=== PATIENT | female | born 1970 | race Caucasian/White ===

== ENCOUNTER 2016-08-10 16:49 | Emergency (ER) | payer BC, MEDICAID ==
[~2016-08-10 16:49] MED LIST: ALBUTEROL INHALER INH; DEXILANT PO; IBUP600T26 PO; VICOBULK PO; ZEBETA PO
[2016-08-10 18:30] LABS: BASO % 0.5 % (0.0-1.0); EOS # 0.3 K/mm3 (0.0-0.50); EOS % 4.3 % (0.0-3.0); LARGE UNSTAINED CELL # 0.1 K/mm3 (0.0-0.4); LARGE UNSTAINED CELL % 1.6 % (0.0-4.0); LYMPH # 1.6 K/mm3 (1.5-4.5); MEAN CORPUSCULAR HEMOGLOBIN 30.2 pg (27.0-33.0); MEAN CORPUSCULAR HGB CONC 33.7 g/dl (32.0-36.5); MEAN CORPUSCULAR VOLUME 89.6 fl (80.0-96.0); MONO # 0.3 K/mm3 (0.0-0.8); MONO % 3.9 % (0.0-5.0); NEUTROPHILS # 4.3 K/mm3 (1.8-7.7); NEUTROPHILS % 65.6 % (36.0-66.0); PLATELET COUNT, AUTOMATED 282 k/mm3 (150-450); RED CELL DISTRIBUTION WIDTH 13.1 % (11.5-14.5); WHITE BLOOD COUNT 6.6 K/mm3 (4.0-10.0)
[2016-08-10 19:02] LABS: ANION GAP 8 MEQ/L (8-16); BLOOD UREA NITROGEN 11 MG/DL (7-18); CALCIUM LEVEL 9.1 MG/DL (8.5-10.1); CARBON DIOXIDE LEVEL 28 MEQ/L (21-32); CHLORIDE LEVEL 104 MEQ/L (98-107); CREATININE FOR GFR 1.01 MG/DL (0.55-1.02); GLOMERULAR FILTRATION RATE > 60.0 (>58); GLUCOSE, FASTING 112 MG/DL (70-105); SODIUM LEVEL 140 MEQ/L (136-145); T UPTAKE 36 % (30-39)
[2016-08-10] MEDS ORDERED: ISOVUE-370 76% 100ML VIAL (Q9967) As Ordered ONE (19:14)
--- NOTE | 2016-08-10 20:00 | REPUSA ---
History: Chest pain. Comparison: No prior CTA of the chest available Technique: A CT-pulmonary angiogram was performed. A dose of intravenous contrast was administered. A xial images were displayed, as were sagittal and coronal reconstructions. A 3-D model was also render ed. Exam DLP: Findings: Although there is suboptimal IV bolus, there is no CT evidence of central pulmonary embolism. There is no evidence of thoracic aortic aneurysm or dissection. No air space consolidation is identified in the lungs. There is no evidence of pulmonary edema. No pa thologically enlarged hilar or mediastinal lymph nodes are identified. No significant pleural or elva cardial fluid collection is seen. There is no evidence of pneumothorax. The included portion of the upper abdomen does not show significant abnormality. Impression: Although there is suboptimal IV bolus, there is no CT evidence of central pulmonary embolism.
--- NOTE | 2016-08-10 21:14 | EDDOCDS ---
Nurse's Notes [facility] Name: Ana Lakhani Age: 45 yrs Sex: Female : 1970 Arrival Date: 08/10/2016 Time: 16:49 Bed 7 Private MD: Jeremy So FPA Diagnosis: Other chest pain-low risk acute coronary syndrome or pulmonary embolism Presentation: 08/10 16:53 Presenting complaint: Patient states: Intermittent chest pain, dizziness, all day. dwg Aspirin was not taken prior to arrival. Adult Sepsis Screening: The patient does not have new or worsening altered mentation. Patient's respiratory rate is less than 22. Systolic blood pressure is greater than 100. Patient has a qSOFA score of 0- Negative Sepsis Screen. Suicide/Homicide risk assessment- the patient denies having any suicidal and/or homicidal ideations and does not present with any other emotional, behavioral or mental health complaints. Status: Patient is not a pump installation and servicer or dependent. Transition of care: patient was not received from another setting of care. 16:53 Acuity: JUAN Level 3 dwg 16:53 Method Of Arrival: Walkin/Carried/Asstd dwg Triage Assessment: 16:56 General: Appears in no apparent distress. Pain: Pain currently is 5 out of 10 on a pain dwg scale. 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 Zebeta 5 mg oral tab 1 tab once daily (Last dose: 08/10/2016 08:00) 2. Ranitidine Oral Unknown prn 3. Motrin 600mg Oral tab as needed 4. Xanax Oral Unknown as needed (Last dose: 08/09/2016 21:00) - PMHx: GERD; Hypertension; Intermittent tachycardia; PAC's; PVC's; - PSHx: Hysterectomy; - Social history: Smoking status: Patient states former smoker of tobacco. No barriers to communication noted, The patient speaks fluent Telugu. - Family history: Not pertinent. - : The pt / caregiver states he / she is not on anticoagulants. Home medication list is obtained from the patient. - Exposure Risk Screening:: None identified. Screenin:21 Screening information is obtained from the patient. Fall risk: No risks identified. jo3 Assistance ADL's: requires no assistance with activities of daily living. Abuse/DV Screen: The patient / caregiver reports he/she is: not in a situation that causes fear, pain or injury. Nutritional screening: No deficits noted. Advance Directives: There is no active DNR order. home support is adequate. Assessment: 18:21 General: Appears in no apparent distress, comfortable, Behavior is anxious, jo3 cooperative, pleasant. Neurological: Level of Consciousness is awake, alert, Oriented to person, place, time. EENT: No deficits noted. Cardiovascular: Rhythm is sinus rhythm with unifocal PVCs. Respiratory: Airway is patent Respiratory effort is even, unlabored, Breath sounds are clear bilaterally. Derm: Skin is pink, warm & dry. 19:22 General: Patient to CT at this time. nn1 20:19 General: Patient in no distress at this time. Patient awaiting CT results, fluids nn1 infusing per order. . General: Patient reports having 3 BMs today. States pressure in abdomen is relieved. . Neurological: Level of Consciousness is awake, alert, obeys commands. Respiratory: Airway is patent Respiratory effort is even, unlabored. Derm: Skin is pink, warm & dry. 21:11 General: Appears in no apparent distress, comfortable, Behavior is appropriate for age, nn1 cooperative. Pain: Denies pain. Neurological: Level of Consciousness is awake, alert, obeys commands. Respiratory: No deficits noted. Derm: Skin is pink, warm & dry. Vital Signs: 16:50 BP 149 / 77; Pulse 100; Resp 20; Temp 96.4(O); Pulse Ox 100% on R/A; Weight 76.66 kg elp (R); Height 5 ft. 2 in. (157.48 cm) (R); Pain 0/10; 19:44 BP 109 / 66 RA Supine (auto/); Pulse 72; jo3 19:46 BP 116 / 84 LA Sitting (auto/); Pulse 74; jo3 19:48 BP 117 / 77 LA Standing (auto/); Pulse 78; jo3 21:06 BP 115 / 76; Pulse 71; Resp 18; Temp 97.8(TE); Pulse Ox 98% on R/A; venkatesh 16:50 Body Mass Index 30.91 (76.66 kg, 157.48 cm) elp 19:48 Denies dizziness on position changes jo3 Vitals: 16:50 Log In Time: August 10, 2016 at 16:48. RN notified that patient meets Red Flag elp criteria. ED Course: 16:50 Patient visited by Zoe Payne PCA. elp 16:50 Jeremy So is Private Physician. elp 16:50 Patient moved to Waiting elp 16:51 Patient visited by Zoe Payne PCA. elp 16:54 Triage Initiated dwg 16:54 RN notified that patient meets Red Flag criteria. dem1 16:57 Patient moved to 7 dwg 17:00 Patient moved to D1 dwg 17:02 Patient moved to Pre RCE ml6 17:02 Patient moved to PD2 / 27 dwg 17:10 Patient visited by Felicia Arias. dem1 17:10 Patient moved to 7 dwg 17:10 EKG done. (by ED staff). Reviewed by Sherie Payne MD. dem1 17:20 Pt greeted and oriented to ED. Patient advised of names of staff involved in care, [facility] location of call alvares, wait times and NPO status. Patient has correct armband on for positive identification. Placed in gown. Bed in low position. Call light in reach. Side rails up X 1. monitoring manager on. Pulse ox on. NIBP on. 17:21 Patient visited by Felicia Arias. dem1 18:14 [facility] Chung F[facility] le 18:21 The patient / caregiver is instructed regarding the plan of care and ED course. jo3 18:21 Inserted saline lock: 18 gauge in left antecubital area. Labs drawn. (by ED staff). jo3 Sent per order to lab. 18:23 Patient visited by Nila Geiger RN. jo3 18:29 Patient visited by Sylvia Chung FNP. le 18:34 Patient visited by Sylvia Chung FNP. le 19:22 Patient visited by Hardik Gillis RN. nn1 19:22 [facility] Payment Agreement was scanned into [employer] and attached to record. [email or web address] 19:29 Patient name changed from Ana\S\Dorothea\S\Patric\S\ to Ana\S\ \S\Lesvia. EDMS 20:09 CT Chest Angio R/O PE Returned. EDMS 20:19 Patient visited by Hardik Gillis RN. nn1 21:03 Jeremy So is Referral Physician. le 21:06 Patient visited by Latrice Byrne PCA. venkatesh 21:12 No procedures done that require assistance. nn1 Administered Medications: 20:19 Drug: NS 0.9% 1000 ml [sodium chloride 0.9 % intravenous solution] Route: IV; Rate: nn1 bolus; Site: left antecubital; 21:12 Follow up: IV Status: Infusion discontinued; IV Intake: 800ml nn1 Intake: 21:12 IV: 800.00ml; Total: 800.00ml. nn1 Order Results: Lab Order: Basic Metabolic Profile; SPEC'M 08/10/16 18:19 Test: GLUCOSE, FASTING; Value: 112; Range: 70-105; Abnormal: Above high normal; Units: MG/DL; Status: F Test: BLOOD UREA NITROGEN; Value: 11; Range: 7-18; Units: MG/DL; Status: F Test: CREATININE FOR GFR; Value: 1.01; Range: 0.55-1.02; Units: MG/DL; Status: F Test: GLOMERULAR FILTRATION RATE; Value: > 60.0; Range: >58; Status: F Test: SODIUM LEVEL; Value: 140; Range: 136-145; Units: MEQ/L; Status: F Test: POTASSIUM SERUM; Value: 4.0; Range: 3.5-5.1; Units: MEQ/L; Status: F Test: CHLORIDE LEVEL; Value: 104; Range: 98-107; Units: MEQ/L; Status: F Test: CARBON DIOXIDE LEVEL; Value: 28; Range: 21-32; Units: MEQ/L; Status: F Test: ANION GAP; Value: 8; Range: 8-16; Units: MEQ/L; Status: F Test: CALCIUM LEVEL; Value: 9.1; Range: 8.5-10.1; Units: MG/DL; Status: F Test Note: ; Units are mL/min/1.73 m2 Chronic Kidney Disease Staging per NKF: Stage I & II GFR >=60 Normal to Mildly Decreased Stage III GFR 30-59 Moderately Decreased Stage IV GFR 15-29 Severely Decreased Stage V GFR <15 Very Little GFR Left ESRD GFR <15 on DETAILER Lab Order: CBC with Diff; SPEC'M 08/10/16 18:19 Test: WHITE BLOOD COUNT; Value: 6.6; Range: 4.0-10.0; Units: K/mm3; Status: F Test: RED BLOOD COUNT; Value: 4.61; Range: 4.00-5.40; Units: M/mm3; Status: F Test: HEMOGLOBIN; Value: 13.9; Range: 12.0-16.0; Units: g/dl; Status: F Test: HEMATOCRIT; Value: 41.3; Range: 36.0-47.0; Units: %; Status: F Test: MEAN CORPUSCULAR VOLUME; Value: 89.6; Range: 80.0-96.0; Units: fl; Status: F Test: MEAN CORPUSCULAR HEMOGLOBIN; Value: 30.2; Range: 27.0-33.0; Units: pg; Status: F Test: MEAN CORPUSCULAR HGB CONC; Value: 33.7; Range: 32.0-36.5; Units: g/dl; Status: F Test: RED CELL DISTRIBUTION WIDTH; Value: 13.1; Range: 11.5-14.5; Units: %; Status: F Test: PLATELET COUNT, AUTOMATED; Value: 282; Range: 150-450; Units: k/mm3; Status: F Test: NEUTROPHILS %; Value: 65.6; Range: 36.0-66.0; Units: %; Status: F Test: LYMPH %; Value: 24.0; Range: 24.0-44.0; Units: %; Status: F Test: MONO %; Value: 3.9; Range: 0.0-5.0; Units: %; Status: F Test: EOS %; Value: 4.3; Range: 0.0-3.0; Abnormal: Above high normal; Units: %; Status: F Test: BASO %; Value: 0.5; Range: 0.0-1.0; Units: %; Status: F Test: LARGE UNSTAINED CELL %; Value: 1.6; Range: 0.0-4.0; Units: %; Status: F Test: NEUTROPHILS #; Value: 4.3; Range: 1.8-7.7; Units: K/mm3; Status: F Test: LYMPH #; Value: 1.6; Range: 1.5-4.5; Units: K/mm3; Status: F Test: MONO #; Value: 0.3; Range: 0.0-0.8; Units: K/mm3; Status: F Test: EOS #; Value: 0.3; Range: 0.0-0.50; Units: K/mm3; Status: F Test: BASO #; Value: 0.0; Range: 0.0-0.2; Units: K/mm3; Status: F Test: LARGE UNSTAINED CELL #; Value: 0.1; Range: 0.0-0.4; Units: K/mm3; Status: F Lab Order: Cardiac Injury Profile; [facility] 08/10/16 18:19 Test: CPK CREATINE PHOSPHOKINASE; Value: 181; Range: 26-192; Units: U/L; Status: F Test: CK-MB VALUE MASS; Value: 1.0; Range: 0.0-3.6; Units: NG/ML; Status: F Test: MB/CK RELATIVE INDEX; Value: 0.55; Range: < OR =4; Status: F Test Note: ; DIAGNOSIS CRITERIA MMB ng/ml Relative Index (RI) NON-AMI < or = 5 N/A [place]ONE > 5 < or = 4 AMI > 5 > 4 Lab Order: Troponin; [facility] 08/10/16 18:19 Test: TROPONIN I; Value: < 0.02; Range: < 0.10; Units: NG/ML; Status: F Test Note: ; Troponin I Reference Interval for [email or web address] LOCI: 99th Percentile= 0.00-0.045 ng/ml Risk Stratification: <= 0.10 ng/ml Decreased Risk for Adverse Clinical Events. 0.10-1.50 ng/ml Increased Risk for Adverse Clinical Events. Evaluation of additional criterion and/or repeat testing in 2-6 hours is suggested to rule out myocardial damage. >= 1.50 ng/ml Indicative of Myocardial Injury. Lab Order: THYROID PROFILE; SPEC' 08/10/16 18:19 Test: T UPTAKE; Value: 36; Range: 30-39; Units: %; Status: F Test: THYROXINE (T4); Value: 9.0; Range: 4.5-12.0; Units: UG/DL; Status: F Test: FREE THYROXINE INDEX; Value: 3.2; Range: 1.3-4.8; Units: %; Status: F Test: THYROID STIMULATING HORMONE; Value: 4.290; Range: 0.358-3.740; Abnormal: Above high normal; Units: uIU/ML; Status: F Lab Order: D-Dimer Quant; SPEC'M 08/10/16 18:19 Test: D-DIMER QUANT; Value: 1020.4; Range: <500; Abnormal: Above high normal; Units: ng/ml; Status: F Radiology Order: CT Chest Angio R/O PE Test: CT Chest Angio R/O PE REASON FOR EXAMINATION: Chest Pain;Shortness of Breath; ; History: Chest pain.; Comparison: No prior CTA of the chest available; Technique: A CT-pulmonary angiogram was performed. A dose of intravenous contrast was administered. A; xial images were displayed, as were sagittal and coronal reconstructions. A 3-D model was also render; ed. Exam DLP:; Findings:; Although there is suboptimal IV bolus, there is no CT evidence of central pulmonary embolism.; There is no evidence of thoracic aortic aneurysm or dissection.; No air space consolidation is identified in the lungs. There is no evidence of pulmonary edema. No pa; thologically enlarged hilar or mediastinal lymph nodes are identified. No significant pleural or elva; cardial fluid collection is seen. There is no evidence of pneumothorax.; The included portion of the upper abdomen does not show significant abnormality.; Impression:; Although there is suboptimal IV bolus, there is no CT evidence of central pulmonary embolism.; ; ; Outcome: 21:03 Discharge ordered by Provider. le 21:12 Discharge Assessment: Patient awake, alert and oriented x 3. No cognitive and/or nn1 functional deficits noted. Patient verbalized understanding of disposition instructions. patient administered narcotics - no. The following High Risk Discharge criteria are identified: None. Discharged to home ambulatory. Condition: stable Condition: improved. CT Study completed. Property :Personal belongings accompany Pt. 21:12 Patient left the ED. nn1 Signatures: Dispatcher [employer] EDDanyel Eugene, RN RN domig Nila GeigerRN RN jo3 Sylvia Chung, DENTAL HYGIENE TEACHER DENTAL HYGIENE TEACHER Jose E Nascimento, RN RN ml6 Chavez, Latrice, PRODUCE LABORER PRODUCE LABORER venkatesh Hugo, Earlia dem1 Zoe Payne, PRODUCE LABORER PRODUCE LABORER elp Hardik Gillis RN RN nn1 Mackenzie Martinez, Reg Reg [email or web address] MTDD
--- NOTE | 2016-08-10 21:14 | EDDOCDS ---
Physician Documentation [facility] Name: Ana Lakhani Age: 45 yrs Sex: Female : 1970 Arrival Date: 08/10/2016 Time: 16:49 Bed 7 Private MD: Jeremy So FPA Disposition: 08/10/16 21:03 Discharged to Home/Self Care. Impression: Other chest pain - low risk acute coronary syndrome or pulmonary embolism. - Condition is Stable. - Discharge Instructions: Nonspecific Chest Pain. - Medication Reconciliation, Local Pharmacy Hours form. - Follow up: Jeremy So; When: Call to arrange an appointment; Reason: Recheck today's complaints, Continuance of care. - Problem is new. - Symptoms have improved. - Notes: Keep hydrated Return to the ED for any further concerns Historical: - Allergies: SULFA (SULFONAMIDES) (Swelling); - Home Meds: 1. Zebeta 5 mg oral tab 1 tab once daily (Last dose: 08/10/2016 08:00) 2. Ranitidine Oral Unknown prn 3. Motrin 600mg Oral tab as needed 4. Xanax Oral Unknown as needed (Last dose: 08/09/2016 21:00) - PMHx: GERD; Hypertension; Intermittent tachycardia; PAC's; PVC's; - PSHx: Hysterectomy; - Social history: Smoking status: Patient states former smoker of tobacco. No barriers to communication noted, The patient speaks fluent Slovak. - Family history: Not pertinent. - : The pt / caregiver states he / she is not on anticoagulants. Home medication list is obtained from the patient. - Exposure Risk Screening:: None identified. 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 2 in. (157.48 cm) (R); Pain 0/10; 19:44 BP 109 / 66 RA Supine (auto/); Pulse 72; jo3 19:46 BP 116 / 84 LA Sitting (auto/); Pulse 74; jo3 19:48 BP 117 / 77 LA Standing (auto/); Pulse 78; jo3 21:06 BP 115 / 76; Pulse 71; Resp 18; Temp 97.8(TE); Pulse Ox 98% on R/A; venkatesh 16:50 Body Mass Index 30.91 (76.66 kg, 157.48 cm) elp 19:48 Denies dizziness on position changes jo3 MDM: 16:54 Mottler Operator/Pulse Ox/q 30 min VS ordered. [facility] 16:54 IV Saline Lock ordered. [facility] 16:54 Rhythm Strip to chart ordered. cj 16:54 Undress patient appropriately for examination ordered. cj 16:55 Basic Metabolic Profile Ordered. EDMS 16:55 CBC with Diff Ordered. EDMS 16:55 Cardiac Injury Profile Ordered. EDMS 16:55 Troponin Ordered. EDMS 16:55 ECG WITH READING ER PHYS+CARDIAG ordered. EDMS 18:01 THYROID PROFILE Ordered. EDMS 18:17 Orthostatic VS ordered. le 18:19 D-Dimer Quant Ordered. EDMS 18:34 CBC with Diff Reviewed. le 18:43 D-Dimer Quant Reviewed. le 18:46 CT Chest Angio R/O PE Ordered. EDMS 19:11 Financial registration complete. [email or web address] 19:22 [facility] Payment Agreement was scanned into [employer] and attached to record. [email or web address] 19:25 Basic Metabolic Profile Reviewed. le 19:25 THYROID PROFILE Reviewed. le 19:25 Cardiac Injury Profile Reviewed. le 19:25 Troponin Reviewed. le 19:59 NS 0.9% 1000 ml IV at bolus once ordered. le 21:00 CT Chest Angio R/O PE Reviewed. le Administered Medications: 20:19 Drug: NS 0.9% 1000 ml [sodium chloride 0.9 % intravenous solution] Route: IV; Rate: nn1 bolus; Site: left antecubital; 21:12 Follow up: IV Status: Infusion discontinued; IV Intake: 800ml nn1 Signatures: Dispatcher [employer] EDVA Danyel Rucker RN RN dwg Helmerci, Jennifer, RN RN hermes3 Sylvia Chung, WILTON WEAVER WILTON WEAVER Gabriela Scott RN RN [facility] Hardik Gillis RN RN nn1 Mackenzie Martinez, Reg Reg [email or web address] The chart was reviewed and I authenticate all verbal orders and agree with the evaluation and treatment provided.Corrections: (The following items were deleted from the chart) 18:01 17:56 THYROID PROFILE+LAB ordered. EDMS EDMS Attachments: 19:22 [facility] Payment Agreement [email or web address] MTDD
--- NOTE | 2016-08-11 07:31 | ECGEPIP ---
Stationary ECG Study [facility] - ED Test Date: 2016-08-10 Pat Name: GREG HARDY Department: Room: - Gender: F Handle Turner: aspen : 1970 Requested By: Sherie Payne Order Number: [id number] Reading MD: Sherie Payne Measurements Intervals [place] Rate: 83 P: 62 [place]: 131 QRS: 67 QRSD: 88 T: 49 QT: 367 QTc: 433 Interpretive Statements SINUS RHYTHM MODERATE ST DEPRESSION INCREASED RATE 05/26/13 Electronically Signed On 08-11-2016 7:31:14 EST by Sherie Payne
--- NOTE | 2016-08-12 22:13 | EDDOCDS ---
Physician Documentation [facility] Name: Ana Lakhani Age: 45 yrs Sex: Female : 1970 Arrival Date: 08/10/2016 Time: 16:49 Bed 7 Private MD: Jeremy So FPA Disposition: 08/10/16 21:03 Discharged to Home/Self Care. Impression: Other chest pain - low risk acute coronary syndrome or pulmonary embolism. - Condition is Stable. - Discharge Instructions: Nonspecific Chest Pain. - Medication Reconciliation, Local Pharmacy Hours form. - Follow up: Jeremy So; When: Call to arrange an appointment; Reason: Recheck today's complaints, Continuance of care. - Problem is new. - Symptoms have improved. - Notes: Keep hydrated Return to the ED for any further concerns Historical: - Allergies: SULFA (SULFONAMIDES) (Swelling); - Home Meds: 1. Zebeta 5 mg oral tab 1 tab once daily (Last dose: 08/10/2016 08:00) 2. Ranitidine Oral Unknown prn 3. Motrin 600mg Oral tab as needed 4. Xanax Oral Unknown as needed (Last dose: 08/09/2016 21:00) - PMHx: GERD; Hypertension; Intermittent tachycardia; PAC's; PVC's; - PSHx: Hysterectomy; - Social history: Smoking status: Patient states former smoker of tobacco. No barriers to communication noted, The patient speaks fluent Prydeinig. - Family history: Not pertinent. - : The pt / caregiver states he / she is not on anticoagulants. Home medication list is obtained from the patient. - Exposure Risk Screening:: None identified. 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 2 in. (157.48 cm) (R); Pain 0/10; 19:44 BP 109 / 66 RA Supine (auto/); Pulse 72; jo3 19:46 BP 116 / 84 LA Sitting (auto/); Pulse 74; jo3 19:48 BP 117 / 77 LA Standing (auto/); Pulse 78; jo3 21:06 BP 115 / 76; Pulse 71; Resp 18; Temp 97.8(TE); Pulse Ox 98% on R/A; venkatesh 16:50 Body Mass Index 30.91 (76.66 kg, 157.48 cm) elp 19:48 Denies dizziness on position changes jo3 MDM: 16:54 Dairy Hand/Pulse Ox/q 30 min VS ordered. [facility] 16:54 IV Saline Lock ordered. [facility] 16:54 Rhythm Strip to chart ordered. [facility] 16:54 Undress patient appropriately for examination ordered. cj 16:55 Basic Metabolic Profile Ordered. EDMS 16:55 CBC with Diff Ordered. EDMS 16:55 Cardiac Injury Profile Ordered. EDMS 16:55 Troponin Ordered. EDMS 16:55 ECG WITH READING ER PHYS+CARDIAG ordered. EDMS 18:01 THYROID PROFILE Ordered. EDMS 18:17 Orthostatic VS ordered. le 18:19 D-Dimer Quant Ordered. EDMS 18:34 CBC with Diff Reviewed. le 18:43 D-Dimer Quant Reviewed. le 18:46 CT Chest Angio R/O PE Ordered. EDMS 19:11 Financial registration complete. [email or web address] 19:22 [facility] Payment Agreement was scanned into [employer] and attached to record. [email or web address] 19:25 Basic Metabolic Profile Reviewed. le 19:25 THYROID PROFILE Reviewed. le 19:25 Cardiac Injury Profile Reviewed. le 19:25 Troponin Reviewed. le 19:59 NS 0.9% 1000 ml IV at bolus once ordered. le 21:00 CT Chest Angio R/O PE Reviewed. le 08/11 10:22 T-Sheet-- Draft Copy was scanned into [employer]You and attached to record. gb 10:22 ECG/EKG was scanned into [employer] and attached to record. gb Administered Medications: 08/10 20:19 Drug: NS 0.9% 1000 ml [sodium chloride 0.9 % intravenous solution] Route: IV; Rate: nn1 bolus; Site: left antecubital; 21:12 Follow up: IV Status: Infusion discontinued; IV Intake: 800ml nn1 Signatures: Dispatcher [employer] EDMS Danyel Rucker RN RN dwg Breanne Saldana, Reg Reg Nila Campos RN RN jo3 Sylvia Chung FNP Gabriela Coleman,RN RN cjHardik Torre RN RN nn1 Mackenzie Martinez, Reg Reg [email or web address] The chart was reviewed and I authenticate all verbal orders and agree with the evaluation and treatment provided.Corrections: (The following items were deleted from the chart) 18:01 17:56 THYROID PROFILE+LAB ordered. EDMS EDMS Attachments: 19:22 [facility] Payment Agreement [email or web address] 08/11 10:22 T-Sheet-- Draft Copy gb 10:22 ECG/EKG gb Chart Complete MTDD
--- NOTE | 2016-08-12 22:13 | EDDOCDS ---
Physician Documentation [facility] Name: Ana Lakhani Age: 45 yrs Sex: Female : 1970 Arrival Date: 08/10/2016 Time: 16:49 Bed 7 Private MD: Jeremy So FPA Disposition: 08/10/16 21:03 Discharged to Home/Self Care. Impression: Other chest pain - low risk acute coronary syndrome or pulmonary embolism. - Condition is Stable. - Discharge Instructions: Nonspecific Chest Pain. - Medication Reconciliation, Local Pharmacy Hours form. - Follow up: Jeremy So; When: Call to arrange an appointment; Reason: Recheck today's complaints, Continuance of care. - Problem is new. - Symptoms have improved. - Notes: Keep hydrated Return to the ED for any further concerns Historical: - Allergies: SULFA (SULFONAMIDES) (Swelling); - Home Meds: 1. Zebeta 5 mg oral tab 1 tab once daily (Last dose: 08/10/2016 08:00) 2. Ranitidine Oral Unknown prn 3. Motrin 600mg Oral tab as needed 4. Xanax Oral Unknown as needed (Last dose: 08/09/2016 21:00) - PMHx: GERD; Hypertension; Intermittent tachycardia; PAC's; PVC's; - PSHx: Hysterectomy; - Social history: Smoking status: Patient states former smoker of tobacco. No barriers to communication noted, The patient speaks fluent Kuwaiti. - Family history: Not pertinent. - : The pt / caregiver states he / she is not on anticoagulants. Home medication list is obtained from the patient. - Exposure Risk Screening:: None identified. 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 2 in. 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 [facility] 16:54 IV Saline Lock ordered. [facility] 16:54 Rhythm Strip to chart ordered. [facility] 16:54 Undress patient appropriately for examination ordered. cj 16:55 Basic Metabolic Profile Ordered. EDMS 16:55 CBC with Diff Ordered. EDMS 16:55 Cardiac Injury Profile Ordered. EDMS 16:55 Troponin Ordered. EDMS 16:55 ECG WITH READING ER PHYS+CARDIAG ordered. EDMS 18:01 THYROID PROFILE Ordered. EDMS 18:17 Orthostatic VS ordered. le 18:19 D-Dimer Quant Ordered. EDMS 18:34 CBC with Diff Reviewed. le 18:43 D-Dimer Quant Reviewed. le 18:46 CT Chest Angio R/O PE Ordered. EDMS 19:11 Financial registration complete. [email or web address] 19:22 [facility] Payment Agreement was scanned into [employer] and attached to record. [email or web address] 19:25 Basic Metabolic Profile Reviewed. le 19:25 THYROID PROFILE Reviewed. le 19:25 Cardiac Injury Profile Reviewed. le 19:25 Troponin Reviewed. le 19:59 NS 0.9% 1000 ml IV at bolus once ordered. le 21:00 CT Chest Angio R/O PE Reviewed. le 08/11 10:22 T-Sheet-- Draft Copy was scanned into [employer] and attached to record. gb 10:22 ECG/EKG was scanned into [employer] and attached to record. gb Administered Medications: 08/10 20:19 Drug: NS 0.9% 1000 ml [sodium chloride 0.9 % intravenous solution] Route: IV; Rate: nn1 bolus; Site: left antecubital; 21:12 Follow up: IV Status: Infusion discontinued; IV Intake: 800ml nn1 Signatures: Dispatcher [employer] EDMS Danyel Rucker RN RN dwg Breanne Saldana, Reg Reg Nila Campos RN RN jo3 Sylvia Chung FNP Gabriela Coleman,RN RN cjHardik Torre RN RN nn1 Mackenzie Martinez, Reg Reg [email or web address] The chart was reviewed and I authenticate all verbal orders and agree with the evaluation and treatment provided.Corrections: (The following items were deleted from the chart) 18:01 17:56 THYROID PROFILE+LAB ordered. EDMS EDMS Attachments: 19:22 [facility] [place] Payment Agreement [email or web address] 08/11 10:22 T-Sheet-- Draft Copy gb 10:22 ECG/EKG gb Chart Complete MTDD
--- NOTE | 2016-08-12 22:13 | EDDOCDS ---
Nurse's Notes [facility] Name: Ana Lakhani Age: 45 yrs Sex: Female : 1970 Arrival Date: 08/10/2016 Time: 16:49 Bed 7 Private MD: Jeremy So FPA Diagnosis: Other chest pain-low risk acute coronary syndrome or pulmonary embolism Presentation: 08/10 16:53 Presenting complaint: Patient states: Intermittent chest pain, dizziness, all day. dwg Aspirin was not taken prior to arrival. Adult Sepsis Screening: The patient does not have new or worsening altered mentation. Patient's respiratory rate is less than 22. Systolic blood pressure is greater than 100. Patient has a qSOFA score of 0- Negative Sepsis Screen. Suicide/Homicide risk assessment- the patient denies having any suicidal and/or homicidal ideations and does not present with any other emotional, behavioral or mental health complaints. Status: Patient is not a customer services manager or dependent. Transition of care: patient was not received from another setting of care. 16:53 Acuity: JUAN Level 3 dwg 16:53 Method Of Arrival: Walkin/Carried/Asstd dwg Triage Assessment: 16:56 General: Appears in no apparent distress. Pain: Pain currently is 5 out of 10 on a pain dwg scale. 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 Zebeta 5 mg oral tab 1 tab once daily (Last dose: 08/10/2016 08:00) 2. Ranitidine Oral Unknown prn 3. Motrin 600mg Oral tab as needed 4. Xanax Oral Unknown as needed (Last dose: 08/09/2016 21:00) - PMHx: GERD; Hypertension; Intermittent tachycardia; PAC's; PVC's; - PSHx: Hysterectomy; - Social history: Smoking status: Patient states former smoker of tobacco. No barriers to communication noted, The patient speaks fluent Spanish. - Family history: Not pertinent. - : The pt / caregiver states he / she is not on anticoagulants. Home medication list is obtained from the patient. - Exposure Risk Screening:: None identified. Screenin:21 Screening information is obtained from the patient. Fall risk: No risks identified. jo3 Assistance ADL's: requires no assistance with activities of daily living. Abuse/DV Screen: The patient / caregiver reports he/she is: not in a situation that causes fear, pain or injury. Nutritional screening: No deficits noted. Advance Directives: There is no active DNR order. home support is adequate. Assessment: 18:21 General: Appears in no apparent distress, comfortable, Behavior is anxious, jo3 cooperative, pleasant. Neurological: Level of Consciousness is awake, alert, Oriented to person, place, time. EENT: No deficits noted. Cardiovascular: Rhythm is sinus rhythm with unifocal PVCs. Respiratory: Airway is patent Respiratory effort is even, unlabored, Breath sounds are clear bilaterally. Derm: Skin is pink, warm & dry. 19:22 General: Patient to CT at this time. nn1 20:19 General: Patient in no distress at this time. Patient awaiting CT results, fluids nn1 infusing per order. . General: Patient reports having 3 BMs today. States pressure in abdomen is relieved. . Neurological: Level of Consciousness is awake, alert, obeys commands. Respiratory: Airway is patent Respiratory effort is even, unlabored. Derm: Skin is pink, warm & dry. 21:11 General: Appears in no apparent distress, comfortable, Behavior is appropriate for age, nn1 cooperative. Pain: Denies pain. Neurological: Level of Consciousness is awake, alert, obeys commands. Respiratory: No deficits noted. Derm: Skin is pink, warm & dry. Vital Signs: 16:50 BP 149 / 77; Pulse 100; Resp 20; Temp 96.4(O); Pulse Ox 100% on R/A; Weight 76.66 kg elp (R); Height 5 ft. 2 in. (157.48 cm) (R); Pain 0/10; 19:44 BP 109 / 66 RA Supine (auto/); Pulse 72; jo3 19:46 BP 116 / 84 LA Sitting (auto/); Pulse 74; jo3 19:48 BP 117 / 77 LA Standing (auto/); Pulse 78; jo3 21:06 BP 115 / 76; Pulse 71; Resp 18; Temp 97.8(TE); Pulse Ox 98% on R/A; venkatesh 16:50 Body Mass Index 30.91 (76.66 kg, 157.48 cm) elp 19:48 Denies dizziness on position changes jo3 Vitals: 16:50 Log In Time: August 10, 2016 at 16:48. RN notified that patient meets Red Flag elp criteria. ED Course: 16:50 Patient visited by Zoe Payne PCA. elp 16:50 Jeremy So is Private Physician. elp 16:50 Patient moved to Waiting elp 16:51 Patient visited by Zoe Payne PCA. elp 16:54 Triage Initiated dwg 16:54 RN notified that patient meets Red Flag criteria. dem1 16:57 Patient moved to 7 dwg 17:00 Patient moved to D1 dwg 17:02 Patient moved to Pre RCE ml6 17:02 Patient moved to PD2 / 27 dwg 17:10 Patient visited by Felicia Arias. dem1 17:10 Patient moved to 7 dwg 17:10 EKG done. (by ED staff). Reviewed by Sherie Payne MD. dem1 17:20 Pt greeted and oriented to ED. Patient advised of names of staff involved in care, [facility] location of call alvares, wait times and NPO status. Patient has correct armband on for positive identification. Placed in gown. Bed in low position. Call light in reach. Side rails up X 1. supervisor dry cell assembly on. Pulse ox on. NIBP on. 17:21 Patient visited by Felicia Arias. dem1 18:14 Sylvia Chung FNP is [facility]. le 18:21 The patient / caregiver is instructed regarding the plan of care and ED course. jo3 18:21 Inserted saline lock: 18 gauge in left antecubital area. Labs drawn. (by ED staff). jo3 Sent per order to lab. 18:23 Patient visited by Nila Geiger RN. jo3 18:29 Patient visited by Sylvia Chung FNP. le 18:34 Patient visited by Sylvia Chung FNP. le 19:22 Patient visited by Hardik Gillis RN. nn1 19:22 [facility] Payment Agreement was scanned into [employer] and attached to record. [email or web address] 19:29 Patient name changed from Ana\S\Dorothea\S\Patric\S\ to Ana\S\ \S\Lesvia. EDMS 20:09 CT Chest Angio R/O PE Returned. EDMS 20:19 Patient visited by Hardik Gillis RN. nn1 21:03 Jeremy So is Referral Physician. le 21:06 Patient visited by Latrice Byrne PCA. venkatesh 21:12 No procedures done that require assistance. nn1 08/11 07:53 EKG-ADULT Returned. EDMS 10:22 T-Sheet-- Draft Copy was scanned into [employer] and attached to record. gb 10:22 ECG/EKG was scanned into [employer] and attached to record. gb Administered Medications: 08/10 20:19 Drug: NS 0.9% 1000 ml [sodium chloride 0.9 % intravenous solution] Route: IV; Rate: nn1 bolus; Site: left antecubital; 21:12 Follow up: IV Status: Infusion discontinued; IV Intake: 800ml nn1 Intake: 21:12 IV: 800.00ml; Total: 800.00ml. nn1 Order Results: Lab Order: Basic Metabolic Profile; SPEC'M 08/10/16 18:19 Test: GLUCOSE, FASTING; Value: 112; Range: 70-105; Abnormal: Above high normal; Units: MG/DL; Status: F Test: BLOOD UREA NITROGEN; Value: 11; Range: 7-18; Units: MG/DL; Status: F Test: CREATININE FOR GFR; Value: 1.01; Range: 0.55-1.02; Units: MG/DL; Status: F Test: GLOMERULAR FILTRATION RATE; Value: > 60.0; Range: >58; Status: F Test: SODIUM LEVEL; Value: 140; Range: 136-145; Units: MEQ/L; Status: F Test: POTASSIUM SERUM; Value: 4.0; Range: 3.5-5.1; Units: MEQ/L; Status: F Test: CHLORIDE LEVEL; Value: 104; Range: 98-107; Units: MEQ/L; Status: F Test: CARBON DIOXIDE LEVEL; Value: 28; Range: 21-32; Units: MEQ/L; Status: F Test: ANION GAP; Value: 8; Range: 8-16; Units: MEQ/L; Status: F Test: CALCIUM LEVEL; Value: 9.1; Range: 8.5-10.1; Units: MG/DL; Status: F Test Note: ; Units are mL/min/1.73 m2 Chronic Kidney Disease Staging per NKF: Stage I & II GFR >=60 Normal to Mildly Decreased Stage III GFR 30-59 Moderately Decreased Stage IV GFR 15-29 Severely Decreased Stage V GFR <15 Very Little GFR Left ESRD GFR <15 on KINDERGARTEN ASSISTANT Lab Order: CBC with Diff; SPEC'M 08/10/16 18:19 Test: WHITE BLOOD COUNT; Value: 6.6; Range: 4.0-10.0; Units: K/mm3; Status: F Test: RED BLOOD COUNT; Value: 4.61; Range: 4.00-5.40; Units: M/mm3; Status: F Test: HEMOGLOBIN; Value: 13.9; Range: 12.0-16.0; Units: g/dl; Status: F Test: HEMATOCRIT; Value: 41.3; Range: 36.0-47.0; Units: %; Status: F Test: MEAN CORPUSCULAR VOLUME; Value: 89.6; Range: 80.0-96.0; Units: fl; Status: F Test: MEAN CORPUSCULAR HEMOGLOBIN; Value: 30.2; Range: 27.0-33.0; Units: pg; Status: F Test: MEAN CORPUSCULAR HGB CONC; Value: 33.7; Range: 32.0-36.5; Units: g/dl; Status: F Test: RED CELL DISTRIBUTION WIDTH; Value: 13.1; Range: 11.5-14.5; Units: %; Status: F Test: PLATELET COUNT, AUTOMATED; Value: 282; Range: 150-450; Units: k/mm3; Status: F Test: NEUTROPHILS %; Value: 65.6; Range: 36.0-66.0; Units: %; Status: F Test: LYMPH %; Value: 24.0; Range: 24.0-44.0; Units: %; Status: F Test: MONO %; Value: 3.9; Range: 0.0-5.0; Units: %; Status: F Test: EOS %; Value: 4.3; Range: 0.0-3.0; Abnormal: Above high normal; Units: %; Status: F Test: BASO %; Value: 0.5; Range: 0.0-1.0; Units: %; Status: F Test: LARGE UNSTAINED CELL %; Value: 1.6; Range: 0.0-4.0; Units: %; Status: F Test: NEUTROPHILS #; Value: 4.3; Range: 1.8-7.7; Units: K/mm3; Status: F Test: LYMPH #; Value: 1.6; Range: 1.5-4.5; Units: K/mm3; Status: F Test: MONO #; Value: 0.3; Range: 0.0-0.8; Units: K/mm3; Status: F Test: EOS #; Value: 0.3; Range: 0.0-0.50; Units: K/mm3; Status: F Test: BASO #; Value: 0.0; Range: 0.0-0.2; Units: K/mm3; Status: F Test: LARGE UNSTAINED CELL #; Value: 0.1; Range: 0.0-0.4; Units: K/mm3; Status: F Lab Order: Cardiac Injury Profile; SPEC'M 08/10/16 18:19 Test: CPK CREATINE PHOSPHOKINASE; Value: 181; Range: 26-192; Units: U/L; Status: F Test: CK-MB VALUE MASS; Value: 1.0; Range: 0.0-3.6; Units: NG/ML; Status: F Test: MB/CK RELATIVE INDEX; Value: 0.55; Range: < OR =4; Status: F Test Note: ; DIAGNOSIS CRITERIA MMB ng/ml Relative Index (RI) NON-AMI < or = 5 N/A DE [place]ONE > 5 < or = 4 AMI > 5 > 4 Lab Order: Troponin; SPEC'M 08/10/16 18:19 Test: TROPONIN I; Value: < 0.02; Range: < 0.10; Units: NG/ML; Status: F Test Note: ; Troponin I Reference Interval for [employer] LOCI: 99th Percentile= 0.00-0.045 ng/ml Risk Stratification: <= 0.10 ng/ml Decreased Risk for Adverse Clinical Events. 0.10-1.50 ng/ml Increased Risk for Adverse Clinical Events. Evaluation of additional criterion and/or repeat testing in 2-6 hours is suggested to rule out myocardial damage. >= 1.50 ng/ml Indicative of Myocardial Injury. Lab Order: THYROID PROFILE; SPEC'M 08/10/16 18:19 Test: T UPTAKE; Value: 36; Range: 30-39; Units: %; Status: F Test: THYROXINE (T4); Value: 9.0; Range: 4.5-12.0; Units: UG/DL; Status: F Test: FREE THYROXINE INDEX; Value: 3.2; Range: 1.3-4.8; Units: %; Status: F Test: THYROID STIMULATING HORMONE; Value: 4.290; Range: 0.358-3.740; Abnormal: Above high normal; Units: uIU/ML; Status: F Lab Order: D-Dimer Quant; SPEC'M 08/10/16 18:19 Test: D-DIMER QUANT; Value: 1020.4; Range: <500; Abnormal: Above high normal; Units: ng/ml; Status: F Radiology Order: EKG-ADULT Test: EKG-ADULT REASON FOR EXAMINATION: Chest Pain; Stationary ECG Study; [facility] [place] - ED; ; Test Date: 2016-08-10; Pat Name: ANA HARDY Department:; Room: -; Gender: F 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: [place]; : 1970 Requested By: Sherie Payne; Order Number: [id number] Reading MD: Sherie Payne; Measurements; Intervals [place]; Rate: 83 P: 62; AL: 131 QRS: 67; QRSD: 88 T: 49; QT: 367; QTc: 433; Interpretive Statements; SINUS RHYTHM; MODERATE ST DEPRESSION; INCREASED RATE 05/26/13; Electronically Signed On 08-11-2016 7:31:14 EST by Sherie Payne; Radiology Order: CT Chest Angio R/O PE Test: CT Chest Angio R/O PE REASON FOR EXAMINATION: Chest Pain;Shortness of Breath; ; History: Chest pain.; Comparison: No prior CTA of the chest available; Technique: A CT-pulmonary angiogram was performed. A dose of intravenous contrast was administered. A; xial images were displayed, as were sagittal and coronal reconstructions. A 3-D model was also render; ed. Exam DLP:; Findings:; Although there is suboptimal IV bolus, there is no CT evidence of central pulmonary embolism.; There is no evidence of thoracic aortic aneurysm or dissection.; No air space consolidation is identified in the lungs. There is no evidence of pulmonary edema. No pa; thologically enlarged hilar or mediastinal lymph nodes are identified. No significant pleural or elva; cardial fluid collection is seen. There is no evidence of pneumothorax.; The included portion of the upper abdomen does not show significant abnormality.; Impression:; Although there is suboptimal IV bolus, there is no CT evidence of central pulmonary embolism.; ; ; Outcome: 21:03 Discharge ordered by Provider. le 21:12 Discharge Assessment: Patient awake, alert and oriented x 3. No cognitive and/or nn1 functional deficits noted. Patient verbalized understanding of disposition instructions. patient administered narcotics - no. The following High Risk Discharge criteria are identified: None. Discharged to home ambulatory. Condition: stable Condition: improved. CT Study completed. Property :Personal belongings accompany Pt. 21:12 Patient left the ED. nn1 Signatures: Dispatcher [employer] EDMS Danyel Rucker, RN RN dw Breanne Saldana, Reg Reg gb Nila GeigerRN RN jo3 Sylvia Chung, DENTURES LAB TECHNICIAN DENTURES LAB TECHNICIAN Jose E Nascimento RN RN ml6 Latrice Byrne, LIBRARY SCIENCE PROFESSOR LIBRARY SCIENCE PROFESSOR Felicia Ponce dem1 Zoe Payne, LIBRARY SCIENCE PROFESSOR LIBRARY SCIENCE PROFESSOR Hardik Bell RN RN nn1 Mackenzie Martinez, Reg Reg [email or web address] Chart Complete MTDD
== END 2016-08-10 21:12 | disposition home or self-care (01) ==
LOC: M ED 16:49
DX: R07.9 Chest pain, unspecified (principal); R06.02 Shortness of breath; R11.0 Nausea; I10 Essential (primary) hypertension; K21.9 Gastro-esophageal reflux disease without esophagitis; I49.3 Ventricular premature depolarization; I49.1 Atrial premature depolarization; Z79.899 Other long term (current) drug therapy; Z88.2 Allergy status to sulfonamides; Z87.891 Personal history of nicotine dependence
CPT/HCPCS: 36415; 71275; 80048; 82550; 82553; 84436; 84443; 84479; 85025; 85379; 93005; 93041; 96360; 99285; Q9967

== ENCOUNTER → 2016-10-10 | Outpatient (REF) | payer BC, MEDICAID | LOC: M LAB REF 16:58 | PROVIDERS: ATTEND Physician Assistant | DX: R30.0 Dysuria (principal) ==

== ENCOUNTER → 2017-08-14 | Outpatient (REF) | payer BC | LOC: M LAB REF 19:02 | DX: J02.9 Acute pharyngitis, unspecified (principal) | CPT/HCPCS: 87077 ==

== ENCOUNTER → 2017-10-04 | Outpatient (CLI) | payer BC ==
[2017-10-07 00:06] LABS: TESTOSTERONE FREE (DIRECT) 1.1 pg/mL (0.0-4.2)
== END ==
LOC: M WUC 15:56
DX: L68.0 Hirsutism (principal)
CPT/HCPCS: 84403

== ENCOUNTER → 2018-05-08 | Outpatient (REF) | payer BC | LOC: M LAB REF 13:12 | DX: R30.0 Dysuria (principal) ==

== ENCOUNTER 2018-10-12 17:17 | Emergency (ER) | payer BC ==
[~2018-10-12] VITALS: Ht 157.5 cm; Wt 79.8 kg
[2018-10-12] MEDS ORDERED: RANI15TA PO (17:26)
[2018-10-12] MEDS ORDERED: EPIN0.3I11 PO (17:26)
[2018-10-12] MEDS ORDERED: KETOROLAC 60 MG/2 ML VIAL (J1885) IM ONE (17:45)
[2018-10-12] MEDS ORDERED: KETO10TAB PO (18:01)
--- NOTE | 2018-10-12 18:03 | REP ---
Clinical: Left-sided lumbar back pain . Technique: AP, lateral, bilateral oblique, and coned-down views. Findings: Alignment and lordosis is maintained. The vertebral bodies including transverse process and spinous processes are intact and normal. There is no evidence for acute fracture / compression injury or subluxation. No evidence for spondylolysis or spondylolisthesis. Mild disc space narrowing at L5-S1 cannot be excluded. Impression: Essentially normal age appropriate lumbosacral spine series. Mild disc space narrowing at L5-S1 cannot be excluded. Electronically Signed by Parveen Levi MD 10/12/2018 05:56 P
--- NOTE | 2018-10-12 18:04 | REP ---
Clinical: Pelvic pain. Technique: Single AP view of the pelvis. Findings: Pelvic bones including bilateral hips as well as the bilateral sacroiliac joints appear relatively normal for age. Surrounding soft tissues are unremarkable. Impression: Age-appropriate pelvic radiograph. Electronically Signed by Parveen Levi MD 10/12/2018 05:56 P
[2018-10-12 18:21] VITALS: BP 107/74
== END 2018-10-12 18:22 | disposition home or self-care (01) ==
LOC: M ED 17:17
DX: S39.012A Strain of muscle, fascia and tendon of lower back, initial encounter (principal); M47.817 Spondylosis without myelopathy or radiculopathy, lumbosacral region; M54.17 Radiculopathy, lumbosacral region; X50.1XXA Overexertion from prolonged static or awkward postures, initial encounter; Y92.9 Unspecified place or not applicable; Y93.9 Activity, unspecified; Y99.9 Unspecified external cause status; J45.909 Unspecified asthma, uncomplicated; K58.9 Irritable bowel syndrome, unspecified; K21.9 Gastro-esophageal reflux disease without esophagitis; F41.9 Anxiety disorder, unspecified; J30.2 Other seasonal allergic rhinitis; Z87.891 Personal history of nicotine dependence; Z79.899 Other long term (current) drug therapy; Z88.2 Allergy status to sulfonamides
CPT/HCPCS: 72110; 72170; 96372; 99283; J1885

== ENCOUNTER → 2019-05-05 | Outpatient (CLI) | payer BC ==
[~2019-05-05] MED LIST changes: +EPIN0.3I11 PO; +GASTROGRAFIN SOLUTION 30ML (Q9963) As Ordered ONE; +ISOVUE-370 76% 100ML VIAL (Q9967) As Ordered ONE; +KETO10TAB PO; +RANI15TA PO
--- NOTE | 2019-05-05 20:28 | REP ---
Clinical: Right upper quadrant pain. Technique: Axial contrast enhanced images from the lung bases to the pubic symphysis using oral (per protocol) and 100 ml Isovue 370 intravenous contrast material with coronal and sagittal re-formations. Comparison: 03/17/2016. Findings: Lung bases are clear. Visualized heart and pericardium normal. Liver, spleen, pancreas, bilateral adrenal glands and kidneys are normal. Very subtle cholelithiasis cannot definitively be excluded without evidence for acute cholecystitis by CT. The enteric system is without obstruction or acute inflammatory process. Scattered sigmoid diverticula noted without acute diverticulitis. Pelvis demonstrates normal bladder and evidence for prior hysterectomy. No ascites. No free air. No adenopathy. Abdominal aorta and vasculature without aneurysm or dissection. Musculoskeletal structures are intact. Impression: 1. Cannot exclude mild cholelithiasis/gallbladder sludge without evidence for acute cholecystitis. 2. Sigmoid diverticula without acute diverticulitis. 3. No further acute abdominopelvic pathology appreciated. Electronically Signed by Parveen Levi MD 05/05/2019 08:19 P
== END ==
LOC: M RAD 14:57
PROVIDERS: ATTEND Surgery
DX: R10.11 Right upper quadrant pain (principal); K57.30 Diverticulosis of large intestine without perforation or abscess without bleeding
CPT/HCPCS: 74177; Q9963; Q9967

== ENCOUNTER → 2019-05-19 | Outpatient (CLI) | payer BC ==
[~2019-05-19] MED LIST changes: +E-Z-GAS II EFFERVESCENT PACKET (SODIUM BICARB./CITRIC ACID/SIMETHICONE) As Ordered ONE; +E-Z-HD 98% w/w 340GM SUSP BTL As Ordered ONE; +E-Z-PAQUE 96% w/w SUSP 176GM BTL As Ordered ONE; -GASTROGRAFIN SOLUTION 30ML (Q9963) As Ordered ONE; -ISOVUE-370 76% 100ML VIAL (Q9967) As Ordered ONE
--- NOTE | 2019-05-19 17:35 | REP ---
UPPER GI AIR CONTRAST AND SMALL BOWEL FOLLOW THROUGH The procedure was performed under the direct supervision of Dr. Solorio. The images were reviewed with Dr. Solorio The basketball scout film shows no organomegaly or pathological masses. The intestinal gas pattern is non-specific. Liquid barium and gas producing crystals were given in the erect position as well as liquid barium in the prone oblique position in order to perform a double contrast upper GI examination. Additionally liquid barium was given at the end of the examination in order to perform a small bowel follow through. The oral and pharyngeal stages of deglutition are unremarkable. Esophageal transport is prompt and efficient and there is no esophagitis, stricture, mucosal ring or hiatal hernia. There is gastroesophageal reflux demonstrated to above the level of the kenzie. The stomach hernandez are normally outlined . The rugal folds are smooth and regular. There is no gastritis neoplasm or ulcer disease. The duodenal hernandez are normally outlined . The mucosal folds are smooth and regular. There is no duodenitis pancreatitis peptic ulcer disease or neoplasm. The visualized portion of the proximal small bowel appears normal in course and caliber. The barium column was followed through the small bowel to the level of the terminal ileum. Small bowel transit time is approximately 30 minutes . During fluoroscopy gentle palpation shows all loops are freely movable and pliable. There are no fixed or angulated loops. The small bowel mucosal pattern is normal in course and caliber. There is no transition to suggest a partial small-bowel obstruction. Spot filming of the terminal ileum shows it to be unremarkable. Impression: There is gastroesophageal reflux demonstrated to above the level of the kenzie. Otherwise, unremarkable double contrast upper GI and small bowel follow through examination. 2 minutes of fluoro time was utilized for this procedure. Electronically Signed by FLACA Sapp 05/19/2019 04:43 P Electronically Signed by Daniel Solorio MD 05/19/2019 05:26 P
== END ==
LOC: M RAD 05-08 08:57
PROVIDERS: ATTEND Surgery
DX: R19.7 Diarrhea, unspecified (principal); K21.9 Gastro-esophageal reflux disease without esophagitis

== ENCOUNTER 2019-06-16 11:56 | Emergency (ER) | payer BC ==
[~2019-06-16] VITALS: Ht 157.5 cm; Wt 75.5 kg
[~2019-06-16 11:56] MED LIST changes: -E-Z-GAS II EFFERVESCENT PACKET (SODIUM BICARB./CITRIC ACID/SIMETHICONE) As Ordered ONE; -E-Z-HD 98% w/w 340GM SUSP BTL As Ordered ONE; -E-Z-PAQUE 96% w/w SUSP 176GM BTL As Ordered ONE
[2019-06-16] MEDS ORDERED: ALPR0.25 (12:10)
[2019-06-16] MEDS ORDERED: BISO5TAB9 (12:10)
[2019-06-16] MEDS ORDERED: ACET1TAB55 PO (12:27)
[2019-06-16] MEDS ORDERED: KETO10TAB PO (13:05)
[2019-06-16] MEDS ORDERED: CYCL10TA PO (13:05)
[2019-06-16] MEDS ORDERED: KETOROLAC 30 MG/ML VIAL (J1885) IM ONE (13:15)
[2019-06-16 13:30] VITALS: BP 110/69
== END 2019-06-16 13:36 | disposition home or self-care (01) ==
LOC: M ED 11:56
DX: S39.012A Strain of muscle, fascia and tendon of lower back, initial encounter (principal); M51.37 Other intervertebral disc degeneration, lumbosacral region; X50.0XXA Overexertion from strenuous movement or load, initial encounter; Y92.099 Unspecified place in other non-institutional residence as the place of occurrence of the external cause; Y93.9 Activity, unspecified; Y99.9 Unspecified external cause status; I10 Essential (primary) hypertension; K21.9 Gastro-esophageal reflux disease without esophagitis; K58.9 Irritable bowel syndrome, unspecified; F41.9 Anxiety disorder, unspecified; J30.9 Allergic rhinitis, unspecified; Z79.899 Other long term (current) drug therapy; Z88.2 Allergy status to sulfonamides
CPT/HCPCS: 96372; 99283; J1885

== ENCOUNTER 2019-06-20 07:41 | Emergency (ER) | payer BC ==
[~2019-06-20] VITALS: Ht 157.5 cm; Wt 79.6 kg
[~2019-06-20 07:41] MED LIST changes: +ACET1TAB55 PO; +ALPR0.25; +BISO5TAB9; +CYCL10TA PO
[2019-06-20] MEDS ORDERED: traMADol 50 MG TAB PO ONE (09:15)
[2019-06-20] MEDS ORDERED: ACETAMINOPHEN TAB 650MG DOSE (2X325MG) PO ONE (09:15)
[2019-06-20] MEDS ORDERED: MEDR4PAK PO (10:11)
[2019-06-20] MEDS ORDERED: ULTR50TA8 PO (10:11)
[2019-06-20 10:21] VITALS: BP 102/66
== END 2019-06-20 10:31 | disposition home or self-care (01) ==
LOC: M ED 07:41
DX: M54.42 Lumbago with sciatica, left side (principal); J30.89 Other allergic rhinitis; Z79.899 Other long term (current) drug therapy; Z88.2 Allergy status to sulfonamides

== ENCOUNTER 2019-12-17 07:33 | Emergency (ER) | payer BC ==
[~2019-12-17] VITALS: Ht 160 cm; Wt 79.2 kg
[~2019-12-17 07:33] MED LIST changes: +BISO5TAB14; -BISO5TAB9; +CYCL-707 PO; -CYCL10TA PO; +MEDR4PAK PO; +ULTR50TA8 PO
[2019-12-17] MEDS ORDERED: COLA100C5 PO (07:41)
[2019-12-17] MEDS ORDERED: FAMO1TAB11 (07:41)
[2019-12-17] MEDS ORDERED: NS 1,000 ML IV ONE (08:15)
[2019-12-17 08:39] LABS: BASO # 0.1 10^3/uL (0.0-0.2); BASO % 0.6 % (0.0-1.0); EOS # 0.3 10^3/uL (0.0-0.5); EOS % 3.4 % (0.0-3.0); HEMATOCRIT 39.7 % (36.0-47.0); HEMOGLOBIN 13.4 g/dl (12.0-15.5); LYMPH # 1.1 10^3/uL (1.5-5.0); LYMPH % 11.9 % (24.0-44.0); MEAN CORPUSCULAR HEMOGLOBIN 30.5 pg (27.0-33.0); MEAN CORPUSCULAR HGB CONC 33.8 g/dl (32.0-36.5); MEAN CORPUSCULAR VOLUME 90.2 fl (80.0-96.0); MONO # 0.8 10^3/uL (0.0-0.8); MONO % 8.7 % (0.0-5.0); NEUTROPHILS # 6.8 10^3/uL (1.5-8.5); NEUTROPHILS % 75.1 % (36.0-66.0); PLATELET COUNT, AUTOMATED 221 10^3/uL (150-450)
[2019-12-17] MEDS ORDERED: KETOROLAC 30 MG/ML 1ML VIAL IV ONE (09:00)
[2019-12-17 09:10] LABS: BILIRUBIN,DIRECT 0.2 MG/DL (0.0-0.2); BILIRUBIN,TOTAL 0.6 MG/DL (0.2-1.0); TOTAL PROTEIN 6.7 GM/DL (6.4-8.2)
[2019-12-17] MEDS ORDERED: ISOVUE-370 76% 100ML VIAL As Ordered ONE (09:15)
--- NOTE | 2019-12-17 10:45 | REP ---
CT ABDOMEN AND PELVIS WITH IV CONTRAST: TECHNIQUE: Axial contrast-enhanced images from the lung bases to the pubic symphysis using 100 mL Isovue-370 intravenous contrast material with multiplanar reformations. Visualized lung bases demonstrate no infiltrate. The liver, spleen, adrenals, pancreas and kidneys demonstrate no mass or other significant abnormality. Small gallstones are seen in the gallbladder. There is no gallbladder wall edema. I do not see evidence of biliary dilatation. Abdominal aorta is normal in caliber with no aneurysm. Subcentimeter periaortic lymph nodes are present without significant adenopathy. No free air is seen. The appendix is normal. There is thickening of the sigmoid colon with multiple diverticula consistent with diverticulitis. There is very mild adjacent free fluid in the pelvis. Urinary bladder is only mildly distended and grossly unremarkable. Ovaries are unremarkable. The patient has had a prior hysterectomy. IMPRESSION: Sigmoid diverticulitis. Very mild free fluid in the pelvis. Cholelithiasis. Electronically Signed by Danyel Doe MD 12/17/2019 12:56 P
[2019-12-17] MEDS ORDERED: CIPR-249 PO (10:54)
[2019-12-17] MEDS ORDERED: FLAG500T PO (10:54)
[2019-12-17 10:59] VITALS: BP 104/70
[2019-12-17] MEDS ORDERED: DIFL150T PO (11:11)
[2019-12-17] MEDS ORDERED: KETO10TAB PO (11:11)
== END 2019-12-17 11:08 | disposition home or self-care (01) ==
LOC: M ED 07:33
DX: K52.9 Noninfective gastroenteritis and colitis, unspecified (principal); K57.32 Diverticulitis of large intestine without perforation or abscess without bleeding; K80.20 Calculus of gallbladder without cholecystitis without obstruction; K21.9 Gastro-esophageal reflux disease without esophagitis; K22.10 Ulcer of esophagus without bleeding; J30.89 Other allergic rhinitis; Z87.891 Personal history of nicotine dependence; Z79.899 Other long term (current) drug therapy; Z88.2 Allergy status to sulfonamides
CPT/HCPCS: 36415; 74177; 80047; 80076; 83690; 85025; 87507; 96360; 96374; 99284; J1885; Q9967

== ENCOUNTER → 2020-08-04 | Outpatient (CLI) | payer BC ==
[~2020-08-04] MED LIST changes: +ALBU8.5H; +AMOX875T; +CIPR-249 PO; +COLA100C5 PO; +DIFL150T PO; +FAMO1TAB11; +FLAG500T PO; +ONDA4TAB6 PO
== END ==
LOC: M LABSMTC 11:23
PROVIDERS: ATTEND Family Medicine
DX: Z20.822 Contact with and (suspected) exposure to COVID-19 (principal)

== ENCOUNTER 2020-08-13 12:10 | Emergency (ER) | payer BC ==
[~2020-08-13] VITALS: Ht 157.5 cm; Wt 79.5 kg
[~2020-08-13 12:10] MED LIST changes: -ALBU8.5H; -AMOX875T; -ONDA4TAB6 PO
--- OUTSIDE RECORDS SUMMARY | 2020-08-13 12:16 | CCD | Continuity of Care Document ---
Author Author Laboratory [place] Ana Nogueira Organization Unknown Address 3 [facility]. [address] [place] [address] Phone [phone] Problems Active Problems Provider Date Generalized anxiety disorder Jeremy So RPA Onset: 1 Palpitations Jeremy So RPA Onset: 05/08/2013 Gastroesophageal reflux disease Jeremy So RPA Onset : 05/08/2013 Tachycardia Jeremy So RPA Onset: 10/14/2013 Note: 10/09/13 Dr. Abebe Conductive hearing loss Jeremy So RPA Onset: 2014 Polyarthropathy Jeremy So RPA Onset: 08/21/2014 Hematuria syndrome Jeremy So RPA Onset: 08/21/2014 Note: Negative Cytology. Neg UA 10/11/15 Hirsutism Jeremy So RPA Onset: 04/01/2019 Pruritus of skin Jeremy So RPA Onset: 04/01/2019 High density lipoprotein deficiency Jeremy So RPA O nset: 04/14/2019 Asthma Jeremy So RPA Onset: 10/08/2019 Hiatal hernia Jeremy So RPA Onset: 05/12/2020 Social History Type Date Description Comments Sex Unknown Tobacco Use Start: Unknown End: Unknown Former Cigarette Smo ker 1/2 Pack Daily for 10 years Tobacco Use Start: Unknown End: Unknown Quit at age 29 ETOH Use Occasionally consumes beer Recreational Drug Use Never Used Drugs Tobacco Use Start: Unknown End: Unknown Patient is a former smoker Seat Belt/Car Seat always Allergies, Adverse Reactions, Alerts Active Allergies Reaction Severity Comments Date Sulfa Drugs 06/14/2010 Environmental 06/14/2010 Proton Pump Inhibitors S/E 04/01 Medications Active Medications SIG Qnty Indications Ordering Provide r Date Bisoprolol Fumarate 5mg Tablets 1 by mouth every day 90tabs Sang Noel D.O., [facility] 08/2019 Clindamycin Phosphate/Benzoyl Peroxide 1.2-5% Gel top qhs to face 45gm Sang Noel D.O., [facility] 10/16/2019 Augmented Betamethasone Dipropionate 0.05% Ointment apply topically to arm two times a day as needed 45units Sang Noel D.O., [facility] 10/08/2019 Maalox Max [id number]/5ML Suspen amber 10- 20 ML PO prn 355ml Sang Noel D.O., [facility] Sucralfate 1gm Tablets take one tablet by mouth four times a day 120tabs Sang Noel D.O., [facility] 04/01/2019 Lac-Hydrin Twelve 12% Lotion apply twice daily to back 400gm Sang Noel D.O., [facility] Flonase Allergy Relief 50mcg/Act Suspension 2 sprays each nostril once a day 29.7ml Sang Noel D.O., [facility] 04/01/2019 Ibuprofen 200mg Tablets 2 tabs by mouth every 4 hours as needed 90tabs Sang Noel D.O., [facility] 10/23/2017 Nebulizer Misc nebulizer compressor , use every 4 hours as needed for sob. dx: j45.20 1units J45.20 Sang Noel D.O., [facility] 10/02/2016 Famotidine 20mg Tablets 1 by mouth twice a day 180tabs Sang Noel D.O., [facility] Ventolin HFA 108(90Base) mcg/Act A erosol inhale two puffs by mouth every 4 to 6 hours as needed 18units Sang Noel D.O., [facility] 04/01/2014 Xanax 0.25mg Tablets 1 tab by mouth two times a day as needed anxiety (istop: [id number]) 60tabs Sang Noel D.O., [facility] 10/21/2012 Epipen 2-Chidi 0.3mg/0 .3ML Solution Auto-Inject use as directed 2units Sang Noel D.O., AFP 09/18/2011 History Medications Flagyl 500mg Tablets 1 by mouth three times a day 21tabs Sang Noel D.O., [facility] - 01/20/2020 Ciprofloxacin HCL 500mg Tablets 1 by mouth twice a day 20tabs Sang Noel D.O., [facility] - 01/20/2020 Diflucan 150mg Tablets one pill by mouth today followed by 1 in 1 week. 2tabs [facility] 01/09/2020 - 01/20/2020 Medications Administered in Office Medication SIG Qnty Indications Ordering Provider Date Injection (SC)/(Im) Injection Adriana Majano D.O. 06/14/2010 Immunizations CPT Code Status Date Vaccine Reaction Lot # [id number] Given 03/13/2014 PPD Tuberculosis Intradermal 45133 Given 03/10/2014 PPD Tuberculosis Intradermal 94824 Given 08/04/2013 MMR Mumps, Measles, Rubella Virus Im munization [id number] 30626 Given 07/04/2013 MMR Mumps, Measles, Rubella Virus Im munization [id number] 01875 Given 06/25/2013 PPD Tuberculosis Intradermal 23812 Given 06/14/2010 Tdap Tetanus,Dip htheria Toxoids/Acellular Pertussis 7Yrs Or Older [id number] 12344 Given 06/14/2010 Influenza Virus Vac. Split Virus Individuals 3 Years And Above [id number] Refused 06/19/2018 Influenza Virus Vaccine, Quadrivalent, Slit Virus, Im Use 3Y & Up RECEIVED AT WORK Vital Signs Date Vital Result Comment 05/18/2020 2:52pm BP Systolic 104 mmHg BP Diastolic 72 mmHg Body Temperature 97.2 F Heart Rate 82 /min Respiratory Rate 16 /min Height 64 inches 5'4" Weight 178.00 lb Emma Body Weight 120 lb BMI (Body Mass Index) 30.6 kg/m2 O2 % BldC Oximetry 97 % 01/09/2020 1:31pm BP Systolic 98 mmHg BP Diastolic 64 mmHg Body Temperature 98.3 F Heart Rate 74 /min Respiratory Rate 16 /min Height 64 inches 5'4" Weight 172.00 lb Emma Body Weight 120 lb BMI (Body Mass Index) 29.5 kg/m2 O2 % BldC Oximetry 98 % Results Test Acquired Date Facility Test Result H/L Range Note Laboratory test finding 05/26/2020 [facility] TSH 1.200 ulU/mL 0.60 - 4.8 CBC 05/26/2020 [facility] WBC 6.4 10E3/uL 4.1 - 10.9 1 RBC 4.41 10E6/uL 4.20 - 6.30 HGB 13.5 g/dL 12.0 - 18.0 HCT 39.8 % 37.0 - 51.0 MCV 90.2 fL 80.0 - 97.0 MCH 30.6 pg 26.0 - 32.0 MCHC 33.9 g/dL 31.0 - 36.0 PLT 282 10E3/uL 140 - 440 RDW-CV 13.3 % 11.5 - 14.5 Lym% 30.5 % 10.0 - 58.5 Neut% 56.3 % 37.0 - 92.0 MXD% 13.2 % 0.1 - 24.0 Lym# 2.0 10E3/uL 0.6 - 4.1 Neut# 3.6 % 2.0 - 7.8 MXD# 0.8 10E3/uL 0.0 - 1.8 MPV 8.8 fL Low 9.0 - 13.0 CMP 05/26/2020 [facility] Glu 95 mg/dL 70 - 110 BUN 16 mg/dL 8 - 23 Creat 0.9 mg/dL 0.5 - 1.0 BUN/Creatinine Ratio 16.8 CALC Na 137 mmol/L 136 - 145 K 4.5 mmol/L 3.5 - 5.1 CL 101.5 mmol/L 98.0 - 107.0 Co2 25.7 mmol/L 22.0 - 29.0 CA 9.5 mg/dL 8.6 - 10.2 TP 7.0 g/dL 6.6 - 8.7 Alb 4.2 g/dL 3.4 - 4.8 A/G Ratio 1.5 CALC Globulin 2.7 CALC Alp 81.9 U/L 35 - 129 Alt (SGPT) 13 U/L 0 - 41 Ast (Sgot) 16 U/L 0 - 40 Tbili 0.50 mg/dL 0.0 - 1.2 Osmolality-Calculated 274.3 CALC Anion Gap 14 mmol/L eGFR 86 # Calc 2 eGFR Non-Afr. Afghan 75 # Calc 3 Lipid Panel 05/26/2020 [facility] Chol 115 mg/dL 0 - 200 Trig 57 mg/dL 40 - 200 HDL 37 mg/dL Low 45 - 65 LDL_C 66 Calc Low 75 - 129 Cho/HDL Ratio 3.1 CALC 1 NORMAL RANGES Age WBC RBC HGB HCT MCV PLT Adult M 4.1-10.9 4.20-6.30 12.0-18.0 37.0-51.0 80-97 140-440 Adult F 4.1-10.9 4.04-5.48 12.0-18.0 37.0-51.0 80-97 140-440 0 -1 Yr 5.0-20.0 3.9-5.9 15-18 MV: 44 MV: 91 MV: 277 2-9 Yr. 6.0-17.0 3.8-5.4 11-13 MV: 37 MV: 78 MV: 300 10 Yrs. 5.0-13.0 3.8-5.4 12-15 MV: 39 MV: 80 MV: 250 NOTE: * FOR ADULT BLACK MALES AND FEMALES, NORMAL WBC IS 2.9-7.7 K/ML * FOR ADULT BLACK MALES AND FEMALES, NORMAL RBC,HGB, AND HCT IS 5% LESS SOURCE FOR DATA: [employer] 1800 OPERATION MANUAL( AUTOMATED BLOOD COUNTS AND DIFF.) APPENDIX B-3 CHRONIC KIDNEY DISEASE STAGING PER NKF: MALE GFR INTERPRETATION: 20-49 YRS: >60 mL/min Normal 50-59 YRS: >56 mL/min Normal 60-69 YRS: >49 mL/min Normal 70-79 YRS: >42 mL/min Normal 80 and above >35 mL/min Normal FEMALE GRF INTERPRETATION: 20-39 YRS: >60 mL/min Normal 40-49 YRS: >58 mL/min Normal 50-59 YRS: >51 mL/min Normal 60-69 YRS: >45 mL/min Normal 70-79 YRS: >39 mL/min Normal 80 and above >32 mL/min NormalCLASSIFICATION CHOLESTEROL FOR ADULTS CHILDREN/ADOLESCENTS* DESIRABLE: <200 MG/DL <170 MG/DL BORDER-LINE HIGH RISK: 200-239 MG/DL 170-199 MG/DL HIGH RISK: >240 MG/DL >200 MG/DL CLASS. FOR PRIMARY LDL CHOL PREVENTION: LDL CHOL-CHILD/ADOLESCENTS* DESIRABLE: <130 MG/DL <110 MG/DL BORDERLINE-HIGH RISK: 130-159 MG/DL 110-129 MG/DL HIGH RISK: >160 MG/DL >130 MG/DL *CHILDREN AND ADOLESCENTS REPRESENTS INDIVIDUALA AGED 2-19 YEARS EXCLUSIVE. 2 CKD-EPI 3 CKD-EPI Procedures Date Code Description Status 06/12/2016 [id number] Mammogram Completed Medical Devices Description No Information Available Encounters Type Date Location Provider Dx Diagnosis Office Visit 05/18/2020 3:15p [place] [facility] Jeremy So, RP A R31.9 Hematuria, unspecified 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 K21.9 Gastro-esophageal reflux dis ease without esophagitis L68.0 Hirsutism R00.0 Tachycardia, unspecified R00.2 Palpitations M13.0 Polyarthritis, unspecified L29.9 Pruritus, unspecified F41.1 Generalized anxiety disorder Office Visit 01/09/2020 1:15p [place] [facility] Jeremy So, RP A R10.9 Unspecified abdominal pain Assessments Date Code Description Provider 05/26/2020 R31.9 Hematuria, unspecified Sherwin Barillas M.D. 05/26/2020 L68.0 Hirsutism Sherwin Barillas M.D. 05/18/2020 R31.9 Hematuria, unspecified Daphne So, RPA 05/18/2020 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 Daphne So, RPA 05/18/2020 K21.9 Gastro-esophageal reflux disease without esophagitis Jeremy So, RPA 05/18/2020 L68.0 Hirsutism Jeremy So, RPA 05/18/2020 R00.0 Tachycardia, unspecified Jeremy So, RPA 05/18/2020 R00.2 Palpitations Jeremy So, RPA 05/18/2020 M13.0 Polyarthritis, unspecified Jeremy Harrington, RPA 05/18/2020 L29.9 Pruritus, unspecified Camila So, RPA 05/18/2020 F41.1 Generalized anxiety disorder Jeremy Mccallum, RPA 01/09/2020 R10.9 Unspecified abdominal pain Jeremy Harrington, [facility] Plan of Treatment No Information Available Functional Status Description No Information Available Mental Status Description No Information Available Referrals Description No Information Available
--- OUTSIDE RECORDS SUMMARY | 2020-08-13 12:16 | CCD | Continuity of Care Document ---
Author Author Ana SO [facility] Organization Unknown Address 3 [facility] [address] [place] [address] Phone [phone] Problems Active Problems Provider Date Generalized anxiety [...] mouth every day 90tabs Sang Noel D.O., [facility] 08/2019 Clindamycin Phosphate/Benzoyl Peroxide 1.2-5% Gel top qhs to face 45gm Sang Noel D.O., [facility] 10/16/2019 Augmented Betamethasone Dipropionate 0.05% Ointment apply topically to arm two times a day as needed 45units [facility] 10/08/2019 Maalox Max [id number]/5ML Suspen amber 10- 20 ML PO prn 355ml Sang Noel D.O., [facility] Sucralfate 1gm Tablets take one tablet by mouth four times a day 120tabs Sang Noel D.O., [facility] 04/01/2019 Lac-Hydrin Twelve 12% Lotion apply twice daily to back 400gm Sang Noel D.O., [facility] Flonase Allergy Relief 50mcg/Act Suspension 2 sprays each nostril once a day 29.7ml Sang Noel D.O., [facility] 04/01/2019 Ibuprofen 200mg Tablets 2 tabs by mouth every 4 hours as needed 90tabs Sang Noel D.O., [facility] 10/23/2017 Nebulizer Misc nebulizer compressor , use every 4 hours as needed for sob. dx: j45.20 1units J45.20 [facility].O., [facility] 10/02/2016 Famotidine 20mg Tablets 1 by mouth twice a day 180tabs [facility].O[facility] Ventolin HFA 108(90Base) mcg/Act A erosol inhale two puffs by mouth every 4 to 6 hours as needed 18units [facility].O[facility] 04/01/2014 Xanax 0.25mg Tablets 1 tab by mouth two times a day as needed anxiety (istop: [id number]) 60tabs Sang Noel D.O., [facility] 10/21/2012 Epipen 2-Chidi 0.3mg/0 .3ML Solution Auto-Inject use as directed 2units Sang Noel D.O., [facility] AFP 09/18/2011 Medications Administered in Office Medication SIG Qnty Indications Ordering Provider Date Injection (SC)/(Im) Injection Adriana Majano D.O. 06/14/2010 Immunizations CPT Code Status Date Vaccine Reaction Lot # [id number] Given 03/13/2014 PPD Tuberculosis Intradermal 96774 Given 03/10/2014 PPD Tuberculosis Intradermal 13892 Given 08/04/2013 MMR Mumps, Measles, Rubella Virus Im munization [id number] 19578 Given 07/04/2013 MMR Mumps, Measles, Rubella Virus Im munization [id number] 20437 Given 06/25/2013 PPD Tuberculosis Intradermal 32301 Given 06/14/2010 Tdap Tetanus,Dip htheria Toxoids/Acellular Pertussis 7Yrs Or Older [id number] 46498 Given 06/14/2010 Influenza Virus Vac. Split Virus Individuals 3 Years And Above [id number] Refused 06/19/2018 Influenza Virus Vaccine, Quadrivalent, Slit Virus, Im Use 3Y & Up RECEIVED AT WORK Vital Signs Date Vital Result Comment 05/18/2020 2:52pm BP Systolic 104 mmHg BP Diastolic 72 mmHg Body Temperature 97.2 F Heart Rate 82 /min Respiratory Rate 16 /min Height 64 inches 5'4" Weight 178.00 lb [place] Body Weight 120 lb BMI (Body Mass Index) 30.6 kg/m2 O2 % BldC Oximetry 97 % 01/09/2020 1:31pm BP Systolic 98 mmHg BP Diastolic 64 mmHg Body Temperature 98.3 F Heart Rate 74 /min Respiratory Rate 16 /min Height 64 inches 5'4" Weight 172.00 lb [place] Body Weight 120 lb BMI (Body Mass Index) 29.5 kg/m2 O2 % BldC Oximetry 98 % Results Test Acquired Date Facility Test Result H/L Range Note Coronavirus 2019 Nasopharygeal 08/04/2020 [facility] ([facility]) [phone] Coronavirus 2019 Nasopharygeal This nucleic aci <SEE N OTE> 1 Laboratory test finding 05/26/2020 [facility]house TSH 1.200 ulU/mL 0.60 - 4.8 CBC 05/26/2020 [facility] WBC 6.4 10E3/uL 4.1 - 10.9 2 RBC 4.41 10E6/uL 4.20 - 6.30 HGB [...] Gap 14 mmol/L eGFR 86 # Calc 3 eGFR Non-Afr. Macedonian 75 # Calc 4 Lipid Panel 05/26/2020 [facility]house Chol 115 mg/dL 0 - 200 Trig 57 mg/dL 40 - 200 HDL 37 mg/dL Low 45 - 65 LDL_C 66 Calc Low 75 - 129 Cho/HDL Ratio 3.1 CALC 1 This nucleic acid amplificat ion test was developed and its performance characteristics determined by [employer] Nucleic acid amplification tests include RT- PCR and TMA. This test has not been FDA cleared or approved. This test has been authorized by FDA under an Emergency Use Authorization (EUA). This test is only authorized for the duration of time the declaration that circumstances exist justifying the authorization of the emergency use of in vitro diagnostic tests for detection of SARS-CoV-2 virus and/or diagnosis of COVID-19 infection under section 564(b)(1) of the Act, 21 U.S.C. 360bbb-3(b) (1), unless the authorization is termina cherri or revoked sooner. When diagnostic testing is negative, the possibility of a false negative result should be considered in the context of a patient's recent exposures and the presence of clinical signs and symptoms consistent with COVID-19. An individual without symptoms of COVID-19 and who is not shedding SARS-CoV-2 virus would expect to have a negative (not detected) result in this assay. Performed at: [facility] [address], [place] [address] [id number] Birth Certificate Clerk: Deidre Yoo PhD, Phone: [phone] Detected 2 NORMAL RANGES Age WBC RBC HGB HCT [...] HCT IS 5% LESS SOURCE FOR DATA: [employer] 1800 OPERATION MANUAL( AUTOMATED BLOOD COUNTS AND [...] ADOLESCENTS REPRESENTS INDIVIDUALA AGED 2-19 YEARS EXCLUSIVE. 3 CKD-EPI 4 CKD-EPI Procedures Date Code Description Status 06/12/2016 [id number] Mammogram Completed Medical Devices Description No Information Available Encounters Type Date Location Provider Dx Diagnosis Office Visit 05/18/2020 3:15p [place] [facility] Jeremy So, RP A R31.9 Hematuria, unspecified 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 K21.9 Gastro-esophageal reflux dis ease without esophagitis L68.0 Hirsutism R00.0 Tachycardia, unspecified R00.2 Palpitations M13.0 Polyarthritis, unspecified L29.9 Pruritus, unspecified F41.1 Generalized anxiety disorder Assessments Date Code Description Provider 05/26/2020 R31.9 [...] Jeremy So, RPA 05/18/2020 M13.0 Polyarthritis, unspecified Arnoldnma Jeremy hurtado, RPA 05/18/2020 L29.9 Pruritus, unspecified JudahCamila, RPA 05/18/2020 F41.1 Generalized anxiety disorder Jeremy Mccallum, RPA Plan of Treatment No Information Available Functional Status Description No Information Available Mental Status Description No Information Available Referrals Description No Information Available
--- OUTSIDE RECORDS SUMMARY | 2020-08-13 12:16 | CCD | Continuity of Care Document ---
Author Author Ana [address] Organization Unknown Address [address] [place] [address] [place] [address] Phone [phone] Care Team Providers Care Cripple Worker Name Role Phone [facility] AUTM [phone] [facility] AUTM [phone] Problems Description No Information Available Social History Type Date Description Comments Sex Unknown ETOH Use Occasionally consumes alcohol Tobacco Use Start: Unknown Patient has never smoked Tobacco Use Start: Unknown The Patient Has Never Vaped Smoking Status Reviewed: 08/03/20 The Patient Has Never Vaped Allergies, Adverse Reactions, Alerts Active Allergies Reaction Severity Comments Date Sulfa swelling 03/31/2014 Medications Active Medications SIG Qnty Indications Ordering Provide r Date Amoxicillin 875mg Tablets take one tablet every 12 hrs.x 10 days. 20tabs J01.10 Zelalem Mcduffie JR., M.D. 08/03/2020 Azelastine HCL (Nasal) 137mcg/[place] Solution instill 2 sprays each nares once daily 30ml J01.10 Zelalem Mcduffie JR., M.D. 08/03/2020 Ventolin HFA 108(90Base) mcg/Act A erosol 1-2 puffs q4-6 hours as needed shortness of breath 1units Zelalem Mcduffie JR., M.D. 03/31/2014 Zebeta 5mg Tablets qd Unknown Xanax XR .25mg Tablets ER 24HR qhs Unknown Tylenol 500mg Tablets last dose today 8:30am Unknown Sucralfate 1gm Tablets twi ce a day prn Unknown Ibuprofen 200mg Capsules prn Unknown Ranitidine 150 Maximum Strength 150mg Tablets take 1 tablet by mouth twice daily as needed Unknown Colace Unknown Immunizations Description No Information Available Vital Signs Date Vital Result Comment 08/03/2020 11:41am BP Systolic 111 mmHg BP Diastolic 76 mmHg Heart Rate 76 /min Respiratory Rate 12 /min O2 % BldC Oximetry 97 % Body Temperature 98.2 F Weight 172.00 lb Height 61.5 inches 5'1.50" BMI (Body Mass Index) 32.0 kg/m2 Pain Level 5 05/08/2018 8:09am BP Systolic 120 mmHg BP Diastolic 80 mmHg Heart Rate 68 /min Respiratory Rate 18 /min O2 % BldC Oximetry 99 % Body Temperature 97.8 F Weight 172.00 lb Height 61.5 inches 5'1.50" BMI (Body Mass Index) 32.0 kg/m2 Pain Level 2 Results Description No Information Available Procedures Description No Information Available Medical Devices Description No Information Available Encounters Type Date Location Provider Dx Diagnosis Office Visit 08/03/2020 11:45a Main Office MORENA Mcadams J01 .10 Acute frontal sinusitis, unspecified R05 Cough Z20.828 Contact w and exposure to ot h viral communicable diseases Assessments Date Code Description Provider 08/03/2020 J01.10 Acute frontal sinusitis, unspeci fied MORENA Mcadams 08/03/2020 R05 Cough MORENA Dwyer 08/03/2020 Z20.828 Contact with and (keller spected) exposure to other viral communicable diseases MORENA Mcadams Plan of Treatment No Information Available Functional Status Description No Information Available Mental Status Description No Information Available Referrals Description No Information Available
--- OUTSIDE RECORDS SUMMARY | 2020-08-13 12:16 | CCD | Continuity of Care Document ---
Author Author Laboratory [place] Ana Nogueira Organization Unknown Address 3 [facility]. [address] [place] [address] Phone [phone] Problems Active Problems Provider Date Generalized anxiety [...] mouth every day 90tabs Sang Noel D.O., [facility] 08/2019 Clindamycin Phosphate/Benzoyl Peroxide 1.2-5% Gel top qhs to face 45gm Sang Noel D.O., [facility] 10/16/2019 Augmented Betamethasone Dipropionate 0.05% Ointment apply topically to arm two times a day as needed 45units Sang Noel D.O., [facility] 10/08/2019 Maalox Max [phone]/5ML Suspen amber 10- 20 ML PO prn 355ml Sang Noel D.O., [facility] Sucralfate 1gm Tablets take one tablet by mouth four times a day 120tabs Sang Noel D.O., [facility] 04/01/2019 Lac-Hydrin Twelve 12% Lotion apply twice daily to back 400gm Sang Noel D.O., [facility] Flonase Allergy Relief 50mcg/Act Suspension 2 sprays each nostril once a day 29.7ml Sang Noel D.O., [facility] 04/01/2019 Ibuprofen 200mg Tablets 2 tabs by mouth every 4 hours as needed 90tabs Sang Noel D.O., [facility] 10/23/2017 Nebulizer Misc nebulizer compressor , use every 4 hours as needed for sob. dx: j45.20 1units J45.20 Sang Noel D.O., [facility] 10/02/2016 Famotidine 20mg Tablets 1 by mouth twice a day 180tabs Sang Noel D.O., [facility] Ventolin HFA 108(90Base) mcg/Act A erosol inhale two puffs by mouth every 4 to 6 hours as needed 18units Sang Noel D.O., [facility] 04/01/2014 Xanax 0.25mg Tablets 1 tab by mouth two times a day as needed anxiety (istop: [id number]) 60tabs Sang Noel D.O., [facility] 10/21/2012 Epipen [...] in 1 week. 2[facility]/09[facility] - 01/20/2020 Medications Administered in Office Medication SIG Qnty Indications Ordering Provider Date Injection (SC)/(Im) Injection Adriaan Majano D.O. 06/14/2010 Immunizations CPT Code Status Date Vaccine Reaction Lot # [id number] Given 03/13/2014 PPD Tuberculosis Intradermal 38926 Given 03/10/2014 PPD Tuberculosis Intradermal 23618 Given 08/04/2013 MMR Mumps, Measles, Rubella Virus Im munization [id number] 91962 Given 07/04/2013 MMR Mumps, Measles, Rubella Virus Im munization [id number] 50261 Given 06/25/2013 PPD Tuberculosis Intradermal 57846 Given 06/14/2010 Tdap Tetanus,Dip htheria Toxoids/Acellular Pertussis 7Yrs Or Older [id number] 69028 Given 06/14/2010 Influenza Virus Vac. Split Virus Individuals 3 Years And Above [id number] Refused 06/19/2018 Influenza Virus Vaccine, Quadrivalent, Slit Virus, Im Use 3Y & Up RECEIVED AT WORK Vital Signs Date Vital Result Comment 05/18/2020 2:52pm BP Systolic 104 mmHg BP Diastolic 72 mmHg Body Temperature 97.2 F Heart Rate 82 /min Respiratory Rate 16 /min Height 64 inches 5'4" Weight 178.00 lb [place] Body Weight 120 lb BMI (Body Mass Index) 30.6 kg/m2 O2 % BldC Oximetry 97 % 01/09/2020 1:31pm BP Systolic 98 mmHg BP Diastolic 64 mmHg Body Temperature 98.3 F Heart Rate 74 /min Respiratory Rate 16 /min Height 64 inches 5'4" Weight 172.00 lb [place] Body Weight 120 lb BMI (Body Mass Index) 29.5 kg/m2 O2 % BldC Oximetry 98 % Results Test Acquired Date Facility Test Result H/L Range Note Laboratory test finding 05/26/2020 [facility]house TSH <pending> CBC 05/26/2020 [facility] WBC 6.4 10E3/uL 4.1 [...] eGFR 86 # Calc 2 eGFR Non-Afr. [place] 75 # Calc 3 Lipid Panel 05/26/2020 [...] HCT IS 5% LESS SOURCE FOR DATA: [employer] 1800 OPERATION MANUAL( AUTOMATED BLOOD COUNTS AND [...] CKD-EPI Procedures Date Code Description Status 06/12/2016 [id number] Mammogram Completed Medical Devices Description No Information Available Encounters Type Date Location Provider Dx Diagnosis Office Visit 05/18/2020 3:15p [place] [facility] Jeremy So, RP A R31.9 Hematuria, unspecified 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 K21.9 Gastro-esophageal reflux dis ease without esophagitis L68.0 Hirsutism R00.0 Tachycardia, unspecified R00.2 Palpitations M13.0 Polyarthritis, unspecified L29.9 Pruritus, unspecified F41.1 Generalized anxiety disorder Office Visit 01/09/2020 1:15p [place] [facility] Jeremy So, RP A R10.9 Unspecified abdominal pain Assessments Date Code Description Provider 05/18/2020 R31.9 Hematuria, unspecified Daphne So, RPA [...] 01/09/2020 R10.9 Unspecified abdominal pain Jeremy Harrington, [facility] Plan of Treatment No Information Available Functional Status Description No Information Available Mental Status Description No Information Available Referrals Description No Information Available
--- OUTSIDE RECORDS SUMMARY | 2020-08-13 12:16 | CCD | Continuity of Care Document ---
Author Author [facility] [place] Ana Nogueira Organization Unknown Address 3 [facility]. [address] [place] [address] Phone [phone] Problems Active Problems Provider Date Generalized anxiety [...] mouth every day 90tabs Sang Noel D.O., [facility] 08/2019 Clindamycin Phosphate/Benzoyl Peroxide 1.2-5% Gel top qhs to face 45gm Sang Noel D.O., [facility] 10/16/2019 Augmented Betamethasone Dipropionate 0.05% Ointment apply topically to arm two times a day as needed 45units Sang Noel D.O., [facility] 10/08/2019 Maalox Max [id number]/5ML Suspen amber 10- 20 ML PO prn 355ml Sang Noel D.O., [facility] Sucralfate 1gm Tablets take one tablet by mouth four times a day 120tabs Sang Noel D.O., [facility] 04/01/2019 Lac-Hydrin Twelve 12% Lotion apply twice daily to back 400gm Sang Noel D.O., [facility] Flonase Allergy Relief 50mcg/Act Suspension 2 sprays each nostril once a day 29.7ml Sang Noel D.O., [facility] 04/01/2019 Ibuprofen 200mg Tablets 2 tabs by mouth every 4 hours as needed 90tabs Sang Noel D.O., [facility] 10/23/2017 Nebulizer Misc nebulizer compressor , use every 4 hours as needed for sob. dx: j45.20 1units J45.20 Sang Noel D.O., [facility] 10/02/2016 Famotidine 20mg Tablets 1 by mouth twice a day 180tabs Sang Noel D.O., [facility] Ventolin HFA 108(90Base) mcg/Act A erosol inhale two puffs by mouth every 4 to 6 hours as needed 18units Sang Noel D.O., [facility] 04/01/2014 Xanax 0.25mg Tablets 1 tab by mouth two times a day as needed anxiety (istop: [id number]) 60tabs Sang Noel D.O., [facility] 10/21/2012 Epipen [...] Code Status Date Vaccine Reaction Lot # [id number] Given 03/13/2014 PPD Tuberculosis Intradermal 17425 Given 03/10/2014 PPD Tuberculosis Intradermal 04866 Given 08/04/2013 MMR Mumps, Measles, Rubella Virus Im munization [id number] 86508 Given 07/04/2013 MMR Mumps, Measles, Rubella Virus Im munization [id number] 60915 Given 06/25/2013 PPD Tuberculosis Intradermal 29346 Given 06/14/2010 Tdap Tetanus,Dip htheria Toxoids/Acellular Pertussis 7Yrs Or Older [id number] 27264 Given 06/14/2010 Influenza Virus Vac. Split Virus Individuals 3 Years And Above [id number] Refused 06/19/2018 Influenza Virus Vaccine, Quadrivalent, Slit Virus, Im Use 3Y & Up RECEIVED AT WORK Vital Signs Date Vital Result Comment 05/18/2020 2:52pm BP Systolic 104 mmHg BP Diastolic 72 mmHg Body Temperature 97.2 F Heart Rate 82 /min Respiratory Rate 16 /min Height 64 inches 5'4" Weight 178.00 lb [place] Body Weight 120 lb BMI (Body Mass Index) 30.6 kg/m2 O2 % BldC Oximetry 97 % 01/09/2020 1:31pm BP Systolic 98 mmHg BP Diastolic 64 mmHg Body Temperature 98.3 F Heart Rate 74 /min Respiratory Rate 16 /min Height 64 inches 5'4" Weight 172.00 lb [place] Body Weight 120 lb BMI (Body Mass [...] eGFR 86 # Calc 2 eGFR Non-Afr. 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 K21.9 Gastro-esophageal reflux dis ease without esophagitis L68.0 Hirsutism R00.0 Tachycardia, unspecified R00.2 Palpitations M13.0 Polyarthritis, unspecified L29.9 Pruritus, unspecified F41.1 Generalized anxiety disorder Office Visit 01/09/2020 1:15p [place] [facility] Jeremy So, RP A R10.9 Unspecified [...] 01/09/2020 R10.9 Unspecified abdominal pain Jeremy Harrington, [facility] Plan of Treatment No Information Available Functional Status Description No Information Available Mental Status Description No Information Available Referrals Description No Information Available
--- OUTSIDE RECORDS SUMMARY | 2020-08-13 12:16 | CCD | Continuity of Care Document ---
Author Author [facility] [place] Ana Nogueira Organization Unknown Address 3 [facility]. [address] [place] [address] Phone [phone] Problems Active Problems Provider Date Generalized anxiety [...] mouth every day 90tabs Sang Noel D.O., [facility] 08/2019 Clindamycin Phosphate/Benzoyl Peroxide 1.2-5% Gel top qhs to face 45gm Sang Noel D.O., [facility] 10/16/2019 Augmented Betamethasone Dipropionate 0.05% Ointment apply topically to arm two times a day as needed 45units Sang Noel D.O., [facility] 10/08/2019 Maalox Max [id number]/5ML Suspen amber 10- 20 ML PO prn 355ml Sang Noel D.O., [facility] Sucralfate 1gm Tablets take one tablet by mouth four times a day 120tabs Sang Noel D.O., [facility] 04/01/2019 Lac-Hydrin Twelve 12% Lotion apply twice daily to back 400gm Sang Noel D.O., [facility] Flonase Allergy Relief 50mcg/Act Suspension 2 sprays each nostril once a day 29.7ml Sang Noel D.O., [facility] 04/01/2019 Ibuprofen 200mg Tablets 2 tabs by mouth every 4 hours as needed 90tabs Sang Noel D.O., F [facility] 10/23/2017 Nebulizer Misc nebulizer compressor , use every 4 hours as needed for sob. dx: j45.20 1units J45.20 Sang Noel D.O., [facility] 10/02/2016 Famotidine 20mg Tablets 1 by mouth twice a day 180tabs Sang Noel D.O., [facility] Ventolin HFA 108(90Base) mcg/Act A erosol inhale two puffs by mouth every 4 to 6 hours as needed 18units Sang Noel D.O., [facility] 04/01/2014 Xanax 0.25mg Tablets 1 tab by mouth two times a day as needed anxiety (istop: [id number]) 60tabs Sang Noel D.O., [facility] 10/21/2012 Epipen [...] in 1 week. 2tabs [facility] 01/09/2020 - 01/20/2020 Medications Administered in Office Medication SIG Qnty Indications Ordering Provider Date Injection (SC)/(Im) Injection Adriana Majano D.O. 06/14/2010 Immunizations CPT Code Status Date Vaccine Reaction Lot # [id number] Given 03/13/2014 PPD Tuberculosis Intradermal 21100 Given 03/10/2014 PPD Tuberculosis Intradermal 62639 Given 08/04/2013 MMR Mumps, Measles, Rubella Virus Im munization [id number] 68973 Given 07/04/2013 MMR Mumps, Measles, Rubella Virus Im munization [id number] 76693 Given 06/25/2013 PPD Tuberculosis Intradermal 11229 Given 06/14/2010 Tdap Tetanus,Dip htheria Toxoids/Acellular Pertussis 7Yrs Or Older [id number] 32186 Given 06/14/2010 Influenza Virus Vac. Split Virus Individuals 3 Years And Above [id number] 06496 Refused 06/19/2018 Influenza Virus Vaccine, Quadrivalent, Slit Virus, Im Use 3Y & Up RECEIVED AT WORK Vital Signs Date Vital Result Comment 05/18/2020 2:52pm BP Systolic 104 mmHg BP Diastolic 72 mmHg Body Temperature 97.2 F Heart Rate 82 /min Respiratory Rate 16 /min Height 64 inches 5'4" Weight 178.00 lb [place] Body Weight 120 lb BMI (Body Mass Index) 30.6 kg/m2 O2 % BldC Oximetry 97 % 01/09/2020 1:31pm BP Systolic 98 mmHg BP Diastolic 64 mmHg Body Temperature 98.3 F Heart Rate 74 /min Respiratory Rate 16 /min Height 64 inches 5'4" Weight 172.00 lb [place] Body Weight 120 lb BMI (Body Mass Index) 29.5 kg/m2 O2 % BldC Oximetry 98 % Results Description No Information Available Procedures Date Code Description Status 06/12/2016 [id number] Mammogram Completed Medical Devices Description No Information Available Encounters Type Date Location Provider Dx Diagnosis Office Visit 05/18/2020 3:15p [place] [facility] Jeremy So, RP A R31.9 Hematuria, unspecified 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 K21.9 Gastro-esophageal reflux dis ease without esophagitis L68.0 Hirsutism R00.0 Tachycardia, unspecified R00.2 Palpitations M13.0 Polyarthritis, unspecified L29.9 Pruritus, unspecified F41.1 Generalized anxiety disorder Office Visit 01/09/2020 1:15p [place] [facility] Jeremy So, RP A R10.9 Unspecified abdominal pain Assessments Date Code Description Provider 05/18/2020 R31.9 Hematuria, unspecified Daphne So, RPA 05/18/2020 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 Daphne So, RPA 05/18/2020 K21.9 Gastro-esophageal reflux disease without esophagitis Jeremy So, RPA 05/18/2020 L68.0 Hirsutism Jeremy So, RPA 05/18/2020 R00.0 Tachycardia, unspecified Jeremy So, RPA 05/18/2020 R00.2 Palpitations Jeremy So, RPA 05/18/2020 M13.0 Polyarthritis, unspecified Francisa Jeremy hurtado, RPA 05/18/2020 L29.9 Pruritus, unspecified JudahCamila, RPA 05/18/2020 F41.1 Generalized anxiety disorder Jeremy Mccallum, RPA 01/09/2020 R10.9 Unspecified abdominal pain Jeremy Harrington, RPA Plan of Treatment No Information Available Functional Status Description No Information Available Mental Status Description No Information Available Referrals Description No Information Available
--- OUTSIDE RECORDS SUMMARY | 2020-08-13 12:16 | CCD | Continuity of Care Document ---
Author Author Ana SO [facility] Organization Unknown Address 3 [facility]. [address] [place] [address] Phone [phone] Problems Active Problems Provider Date Generalized anxiety [...] mouth every day 90tabs [facility] Clindamycin Phosphate/Benzoyl Peroxide 1.2-5% Gel top qhs to face 45gm Sang Noel D.O., FA [facility] 10/16/2019 Augmented Betamethasone Dipropionate 0.05% Ointment apply topically to arm two times a day as needed 45units [facility] 10/08/2019 Maalox Max [id number]/5ML Suspen amber 10- 20 ML PO prn 355ml [facility] Sucralfate 1gm Tablets take one tablet by mouth four times a day 120tabs Sang Noel D.O., FA [facility] 04/01/2019 Lac-Hydrin Twelve 12% Lotion apply twice daily to back 400gm Sang Noel D.O., [facility] Flonase Allergy Relief 50mcg/Act Suspension 2 sprays each nostril once a day 29.7ml Sang Noel D.O., [facility] 04/01/2019 Ibuprofen 200mg Tablets 2 tabs by mouth every 4 hours as needed 90tabs Sang Noel D.O., F [facility] 10/23/2017 Nebulizer Misc nebulizer compressor , use every 4 hours as needed for sob. dx: j45.20 1units J45.20 [facility] 10/02/2016 Famotidine 20mg Tablets 1 by mouth twice a day 180tabs Sang Noel D.O., [facility] Ventolin HFA 108(90Base) mcg/Act A erosol inhale two puffs by mouth every 4 to 6 hours as needed 18units [facility] 04/01/2014 Xanax 0.25mg Tablets 1 tab by mouth two times a day as needed anxiety (istop: [id number]) 60tabs Sang Noel D.O., [facility] 10/21/2012 Epipen 2-Chidi 0.3mg/0 .3ML Solution Auto-Inject [...] in 1 week. 2tabs Sang Noel D.O., [facility] 01/09/2020 - 01/20/2020 Medications Administered in Office Medication SIG Qnty Indications Ordering Provider Date Injection (SC)/(Im) Injection Adriana Majano D.O. 06/14/2010 Immunizations CPT Code Status Date Vaccine Reaction Lot # [id number] Given 03/13/2014 PPD Tuberculosis Intradermal 45699 Given 03/10/2014 PPD Tuberculosis Intradermal 52595 Given 08/04/2013 MMR Mumps, Measles, Rubella Virus Im munization [id number] 10866 Given 07/04/2013 MMR Mumps, Measles, Rubella Virus Im munization [id number] 72602 Given 06/25/2013 PPD Tuberculosis Intradermal 40088 Given 06/14/2010 Tdap Tetanus,Dip htheria Toxoids/Acellular Pertussis 7Yrs Or Older [id number] 11555 Given 06/14/2010 Influenza Virus Vac. Split Virus Individuals 3 Years And Above [id number] Refused 06/19/2018 Influenza Virus Vaccine, Quadrivalent, Slit Virus, Im Use 3Y & Up RECEIVED AT WORK Vital Signs Date Vital Result Comment 05/18/2020 2:52pm BP Systolic 104 mmHg BP Diastolic 72 mmHg Body Temperature 97.2 F Heart Rate 82 /min Respiratory Rate 16 /min Height 64 inches 5'4" Weight 178.00 lb [place] Body Weight 120 lb BMI (Body Mass Index) 30.6 kg/m2 O2 % BldC Oximetry 97 % 01/09/2020 1:31pm BP Systolic 98 mmHg BP Diastolic 64 mmHg Body Temperature 98.3 F Heart Rate 74 /min Respiratory Rate 16 /min Height 64 inches 5'4" Weight 172.00 lb [place] Body Weight 120 lb BMI (Body Mass Index) 29.5 kg/m2 O2 % BldC Oximetry 98 % Results Description No Information Available Procedures Date Code Description Status 06/12/2016 [id number] Mammogram Completed Medical Devices Description No Information Available Encounters Type Date Location Provider Dx Diagnosis Office Visit 05/18/2020 3:15p [place] [facility] Jeremy So, RP A R31.9 Hematuria, unspecified 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
--- OUTSIDE RECORDS SUMMARY | 2020-08-13 12:16 | CCD | Continuity of Care Document ---
Author Author Ana TEIXEIRA [place] Organization Unknown Address [address] [place] [address] [place] [address] Phone [phone] Care Team Providers Care Headlight Assembler Name Role Phone [facility] [phone] Problems Description No Information Available Social History [...] Mcduffie JR., M.D. 08/03/2020 Azelastine HCL (Nasal) 137mcg/[place] Solution instill 2 sprays each nares once [...]
--- OUTSIDE RECORDS SUMMARY | 2020-08-13 12:17 | CCD | Continuity of Care Document ---
Author Author Ana SO [facility] Organization Unknown Address 3 [facility]. [address] [place] [address] Phone [phone] Problems Active Problems Provider Date Generalized anxiety [...] every day 90tabs Sang Noel D.O., [facility]2019 Clindamycin Phosphate/Benzoyl Peroxide 1.2-5% Gel top qhs to face 45gm Sang Noel D.O., [facility] 10/16/2019 Augmented Betamethasone Dipropionate 0.05% Ointment apply topically to arm two times a day as needed 45units Sang Noel D.O., [facility] 10/08/2019 Maalox Max 631-267-73rf/5ML Suspen amber 10- 20 ML PO prn 355ml Sang Noel D.O., [facility] Sucralfate 1gm Tablets take one tablet by mouth four times a day 120tabs Sang Noel D.O., [facility] 04/01/2019 Lac-Hydrin Twelve 12% Lotion apply twice daily to back 400gm Sang Noel D.O., [facility] Flonase Allergy Relief 50mcg/Act Suspension 2 sprays each nostril once a day 29.7ml Sang Noel D.O., [facility] 04/01/2019 Ibuprofen 200mg Tablets 2 tabs by mouth every 4 hours as needed 90tabs Sang Noel D.O., F [facility] 10/23/2017 Nebulizer Misc nebulizer compressor , use every 4 hours as needed for sob. dx: j45.20 1units J45.20 Sang Noel D.O., [facility] 10/02/2016 Famotidine 20mg Tablets 1 by mouth twice a day 180tabs Sang Noel D.O., [facility] Ventolin HFA 108(90Base) mcg/Act A erosol inhale two puffs by mouth every 4 to 6 hours as needed 18units Sang Noel D.O., [facility] 04/01/2014 Xanax 0.25mg Tablets 1 tab by mouth two times a day as needed anxiety (istop: [id number]) 60tabs Sang Noel D.O., [facility] 10/21/2012 Epipen 2-Chidi 0.3mg/0 .3ML [...] in 1 week. 2tabs Sang Noel D.O., [facility] 01/09/2020 - 01/20/2020 Medications Administered in Office Medication SIG Qnty Indications Ordering Provider Date Injection (SC)/(Im) Injection Adriana Majano D.O. 06/14/2010 Immunizations CPT Code Status Date Vaccine Reaction Lot # [id number] Given 03/13/2014 PPD Tuberculosis Intradermal 85947 Given 03/10/2014 PPD Tuberculosis Intradermal 70160 Given 08/04/2013 MMR Mumps, Measles, Rubella Virus Im munization [id number] 50024 Given 07/04/2013 MMR Mumps, Measles, Rubella Virus Im munization [id number] 64495 Given 06/25/2013 PPD Tuberculosis Intradermal 21988 Given 06/14/2010 Tdap Tetanus,Dip htheria Toxoids/Acellular Pertussis 7Yrs Or Older [id number] 43053 Given 06/14/2010 Influenza Virus Vac. Split Virus Individuals 3 Years And Above [id number] Refused 06/19/2018 Influenza Virus Vaccine, Quadrivalent, Slit Virus, Im Use 3Y & Up RECEIVED AT WORK Vital Signs Date Vital Result Comment 05/18/2020 2:52pm BP Systolic 104 mmHg BP Diastolic 72 mmHg Body Temperature 97.2 F Heart Rate 82 /min Respiratory Rate 16 /min Height 64 inches 5'4" Weight 178.00 lb [place] Body Weight 120 lb BMI (Body Mass Index) 30.6 kg/m2 O2 % BldC Oximetry 97 % 01/09/2020 1:31pm BP Systolic 98 mmHg BP Diastolic 64 mmHg Body Temperature 98.3 F Heart Rate 74 /min Respiratory Rate 16 /min Height 64 inches 5'4" Weight 172.00 lb [place] Body Weight 120 lb BMI (Body Mass Index) 29.5 kg/m2 O2 % BldC Oximetry 98 % Results Description No Information Available Procedures Date Code Description Status 06/12/2016 [id number] Mammogram Completed Medical Devices Description No Information Available Encounters Type Date Location Provider Dx Diagnosis Office Visit 05/18/2020 3:15p [place] [facility] Jeremy So, RP A R31.9 Hematuria, unspecified 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
--- OUTSIDE RECORDS SUMMARY | 2020-08-13 12:18 | CCD ---
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 Name Role Phone NILAM Pretty NP Unavailable Unavailable BOYD, L JENELLE NG Unavailable Unavailable BOYD, L JENELLE NG Unavailable Unavailable BOYD, L JENELLE NG Unavailable Unavailable BOYD, L JENELLE NG Unavailable Unavailable BOYD, L JENELLE NG Unavailable Unavailable BOYD, L JENELLE NG Unavailable Unavailable BOYD, L JENELLE NG Unavailable Unavailable BOYD, L JENELLE NG Unavailable Unavailable BOYD, L JENELLE NG Unavailable Unavailable BOYD, L JENELLE NG Unavailable Unavailable BOYD, L JENELLE NG Unavailable Unavailable BOYD, L JENELLE NG Unavailable Unavailable BOYD, L JENELLE NG Unavailable Unavailable BOYD, L JENELLE NG Unavailable Unavailable BOYD, L JENELLE NG Unavailable Unavailable BOYD, L JENELLE NG Unavailable Unavailable BOYD, L JENELLE NG Unavailable Unavailable BOYD, L JENELLE NG Unavailable Unavailable BOYD, L JENELLE NG Unavailable Unavailable BOYD, L JENELLE NG Unavailable Unavailable BOYD, L JENELLE NG Unavailable Unavailable BOYD, L JENELLE NG Unavailable Unavailable BOYD, L JENELLE NG Unavailable Unavailable BOYD, L JENELLE NG Unavailable Unavailable BOYD, L JENELLE NG Unavailable Unavailable BOYD, L JENELLE NG Unavailable Unavailable BOYD, L JENELLE NG Unavailable Unavailable BOYD, L JENELLE NG Unavailable Unavailable BOYD, L JENELLE NG Unavailable Unavailable BOYD, L JENELLE NG Unavailable Unavailable BOYD, L JENELLE NG Unavailable Unavailable BOYD, L JENELLE NG Unavailable Unavailable BOYD, L JENELLE NG Unavailable Unavailable BOYD, L JENELLE NG Unavailable Unavailable BOYD, L JENELLE NG Unavailable Unavailable BOYD, L JENELLE NG Unavailable Unavailable BOYD, L JENELLE NG Unavailable Unavailable BOYD, L JENELLE NG Unavailable Unavailable BOYD, L JENELLE NG Unavailable Unavailable BOYD, L JENELLE NG Unavailable Unavailable BOYD, L JENELLE NG Unavailable Unavailable BOYD, L JENELLE NG Unavailable Unavailable BOYD, L JENELLE NG Unavailable Unavailable Judah, D Son PA Unavailable Unavailable Judah, D Son PA Unavailable Unavailable Ujdah, D Son PA Unavailable Unavailable Judah, D Son PA Unavailable Unavailable Judah, D Son PA Unavailable Unavailable Judah, D Son PA Unavailable Unavailable Judah, D Son PA Unavailable Unavailable Judah, D Son PA Unavailable Unavailable Judah, D Son PA Unavailable Unavailable Judah, D Son PA Unavailable Unavailable Judah, D Son PA Unavailable Unavailable Judah, D Son PA Unavailable Unavailable Judah, D Son PA Unavailable Unavailable Judah, D Son PA Unavailable Unavailable Judah, D Son PA Unavailable Unavailable Judah, D Son PA Unavailable Unavailable Judah, D Son PA Unavailable Unavailable Judah, D Son PA Unavailable Unavailable Judah, D Son PA Unavailable Unavailable Judah, D Son PA Unavailable Unavailable Judah, D Son PA Unavailable Unavailable Judah, D Son PA Unavailable Unavailable Judah, D Son PA Unavailable Unavailable Judah, D Son PA Unavailable Unavailable Judah, D Son PA Unavailable Unavailable Judah, D Son PA Unavailable Unavailable Judah, D Son PA Unavailable Unavailable Judah, D Son PA Unavailable Unavailable Judah, D Son PA Unavailable Unavailable Judah, D Son PA Unavailable Unavailable Judah, D Son PA Unavailable Unavailable Judah, D Son PA Unavailable Unavailable Judah, D Son PA Unavailable Unavailable Judah, D Son PA Unavailable Unavailable Judah, D Son PA Unavailable Unavailable Judah, D Son PA Unavailable Unavailable Judah, D Son PA Unavailable Unavailable Judah, D Son PA Unavailable Unavailable Judah, D Son PA Unavailable Unavailable Judah, D Son PA Unavailable Unavailable Judah, D Son PA Unavailable Unavailable Judah, D Son PA Unavailable Unavailable Judah, D Son PA Unavailable Unavailable Judah, D Son PA Unavailable Unavailable Judah, D Son PA Unavailable Unavailable Judah, D Son PA Unavailable Unavailable Judah, D Son PA Unavailable Unavailable Judah, D Son PA Unavailable Unavailable Judah, D Son PA Unavailable Unavailable Judah, D Son PA Unavailable Unavailable Judah, D Son PA Unavailable Unavailable Judah, D Son PA Unavailable Unavailable Judah, D Son PA Unavailable Unavailable Judah, D Son PA Unavailable Unavailable Judah, D Son PA Unavailable Unavailable Judah, D Son PA Unavailable Unavailable Judah, D Son PA Unavailable Unavailable Judah, D Son PA Unavailable Unavailable Judah, D Son PA Unavailable Unavailable Judah, D Son PA Unavailable Unavailable Judah, D Son PA Unavailable Unavailable Judah, D Son PA Unavailable Unavailable Judah, D Son PA Unavailable Unavailable Juadh, D Son PA Unavailable Unavailable Judah, D Son PA Unavailable Unavailable Judah, D Son PA Unavailable Unavailable Judah, D Son PA Unavailable Unavailable Judah, D Son PA Unavailable Unavailable Judah, D Son PA Unavailable Unavailable Judah, D Son PA Unavailable Unavailable Judah, D Son PA Unavailable Unavailable Judah, D Son PA Unavailable Unavailable Judah, D Son PA Unavailable Unavailable Judah, D Son PA Unavailable Unavailable Judah, D Son PA Unavailable Unavailable Judah, D Son PA Unavailable Unavailable Judah, D Son PA Unavailable Unavailable Judah, D Son PA Unavailable Unavailable Judah, D Son PA Unavailable Unavailable Judah, D Son PA Unavailable Unavailable Judah, D Son PA Unavailable Unavailable Judah, D Son PA Unavailable Unavailable Judah, D Son PA Unavailable Unavailable Judah, D Son PA Unavailable Unavailable Judah, D Son PA Unavailable Unavailable Judah, D Son PA Unavailable Unavailable Judah, D Son PA Unavailable Unavailable Judah, D Son PA Unavailable Unavailable Judah, D Son PA Unavailable Unavailable Judah, D Son PA Unavailable Unavailable Judah, D Son PA Unavailable Unavailable Judah, D Son PA Unavailable Unavailable Judah, D Son PA Unavailable Unavailable Judah, D Son PA Unavailable Unavailable Judah, D Son PA Unavailable Unavailable Judah, D Son PA Unavailable Unavailable Judah, D Son PA Unavailable Unavailable Judah, D Son PA Unavailable Unavailable Judah, D Son PA Unavailable Unavailable Judah, D Son PA Unavailable Unavailable Judah, D Son PA Unavailable Unavailable Judah, D Son PA Unavailable Unavailable Judah, D Son PA Unavailable Unavailable Judah, D Son PA Unavailable Unavailable Judah, D Son PA Unavailable Unavailable Judah, D Son PA Unavailable Unavailable Judah, D Son PA Unavailable Unavailable Judah, D Son PA Unavailable Unavailable Judah, D Son PA Unavailable Unavailable Judah, D Son PA Unavailable Unavailable Judah, D Son PA Unavailable Unavailable Judah, D Son PA Unavailable Unavailable Judah, D Son PA Unavailable Unavailable Judah, D Son PA Unavailable Unavailable Judah, D Son PA Unavailable Unavailable Judah, D Son PA Unavailable Unavailable Judah, D Son PA Unavailable Unavailable Judah, D Son PA Unavailable Unavailable Judah, D Son PA Unavailable Unavailable Judah, D Son PA Unavailable Unavailable Judah, D Son PA Unavailable Unavailable Judah, D Son PA Unavailable Unavailable Judah, D Son PA Unavailable Unavailable Judah, D Son PA Unavailable Unavailable Judah, D Son PA Unavailable Unavailable Judah, D Son PA Unavailable Unavailable PAULA (SURAJ), Daphne BURTON MD Unavailable Unavailab le PAULA (SURAJ), Daphne BURTON MD Unavailable Unavailab le PAULA (SURAJ), Daphne BURTON MD Unavailable Unavailab le PAULA (SURAJ), Daphne BURTON MD Unavailable Unavailab le PAULA (SURAJ), Daphne BURTON MD Unavailable Unavailab le PAULA (SURAJ), Daphne BURTON MD Unavailable Unavailab le PAULA (SURAJ), Daphne BURTON MD Unavailable Unavailab le PAULA (SURAJ), Daphne BURTON MD Unavailable Unavailab le PAULA (SURAJ), Daphne BURTON MD Unavailable Unavailab le PAULA (SURAJ), Daphne BURTON MD Unavailable Unavailab le PAULA (SURAJ), Daphne BURTON MD Unavailable Unavailab le PAULA (SURAJ), Daphne BURTON MD Unavailable Unavailab le PAULA (SURAJ), Daphne BURTON MD Unavailable Unavailab le PAULA (SURAJ), Daphne BURTON MD Unavailable Unavailab le PAULA (SURAJ), Daphne BURTON MD Unavailable Unavailab le PAULA (SURAJ), Daphne BURTON MD Unavailable Unavailab le PAULA (SURAJ), Daphne BURTON MD Unavailable Unavailab le PAULA (SURAJ), Daphne BURTON MD Unavailable Unavailab le PAULA (SURAJ), Daphne BURTON MD Unavailable Unavailab le PAULA (SURAJ), Daphne BURTON MD Unavailable Unavailab le PAULA (SURAJ), Daphne BURTON MD Unavailable Unavailab le PAULA (SURAJ), Daphne BURTON MD Unavailable Unavailab le PUALA (SURAJ), Daphne BURTON MD Unavailable Unavailab le PAULA (SURAJ), Daphne BURTON MD Unavailable Unavailab le PAULA (SURAJ), Daphne BURTON MD Unavailable Unavailab le PAULA (SURAJ), Daphne BURTON MD Unavailable Unavailab le PAULA (SURAJ), Daphne BURTON MD Unavailable Unavailab le PAULA (SURAJ), Daphne BURTON MD Unavailable Unavailab le PAULA (SURAJ), Daphne BURTON MD Unavailable Unavailab le PAULA (SURAJ), Daphne BURTON MD Unavailable Unavailab le PAULA (SURAJ), Daphne BURTON MD Unavailable Unavailab le PAULA (SURAJ), Daphne BURTON MD Unavailable Unavailab le PAULA (SURAJ), Daphne BURTON MD Unavailable Unavailab le PAULA (SURAJ), Daphne BURTON MD Unavailable Unavailab le PAULA (SURAJ), Daphne BURTON MD Unavailable Unavailab le PAULA (SURAJ), Daphne BURTON MD Unavailable Unavailab le PAULA (SURAJ), Daphne BURTON MD Unavailable Unavailab le PAULA (SURAJ), Daphne BURTON MD Unavailable Unavailab le PAULA (SURAJ), Daphne BURTON MD Unavailable Unavailab le PAULA (SURAJ), Daphne BURTON MD Unavailable Unavailab le PAULA (SURAJ), Daphne BURTON MD Unavailable Unavailab le PAULA (SURAJ), Daphne BURTON MD Unavailable Unavailab le PAULA (SURAJ), Daphne BURTON MD Unavailable Unavailab le PAULA (SURAJ), Daphne BURTON MD Unavailable Unavailab le PAULA (SURAJ), Daphne BURTON MD Unavailable Unavailab le PAULA (SURAJ), Daphne BURTON MD Unavailable Unavailab le PAULA (SURAJ), Daphne BURTON MD Unavailable Unavailab le PAULA (SURAJ), Daphne BURTON MD Unavailable Unavailab le PAULA (SURAJ), Daphne BURTON MD Unavailable Unavailab le PAULA (SURAJ), Daphne BURTON MD Unavailable Unavailab le PAULA (SURAJ), Daphne BURTON MD Unavailable Unavailab le PAULA (SURAJ), Daphne BURTON MD Unavailable Unavailab le PAULA (SURAJ), Daphne BURTON MD Unavailable Unavailab le PAULA (SURAJ), Daphne BURTON MD Unavailable Unavailab le PAULA (SURAJ), Daphne BURTON MD Unavailable Unavailab le PAULA (SURAJ), Daphne BURTON MD Unavailable Unavailab le PAULA (SURAJ), Daphne BURTON MD Unavailable Unavailab le PAULA (SURAJ), Daphne BURTON MD Unavailable Unavailab le PAULA (SURAJ), Daphne BURTON MD Unavailable Unavailab le PAULA (SURAJ), Daphne BURTON MD Unavailable Unavailab le PAULA (SURAJ), Daphne BURTON MD Unavailable Unavailab le PAULA (SURAJ), Daphne BURTON MD Unavailable Unavailab le PAULA (SURAJ), Daphne BURTON MD Unavailable Unavailab le PAULA (SURAJ), Daphne BURTON MD Unavailable Unavailab le PAULA (SURAJ), Daphne BURTON MD Unavailable Unavailab le PAULA (SURAJ), Daphne BURTON MD Unavailable Unavailab le PAULA (SURAJ), Daphne BURTON MD Unavailable Unavailab le PAULA (SURAJ), Daphne BURTON MD Unavailable Unavailab le PAULA (SURAJ), Daphne BURTON MD Unavailable Unavailab le PAULA (SURAJ), Daphne BURTON MD Unavailable Unavailab le PAULA (SURAJ), Daphne BURTON MD Unavailable Unavailab le PAULA (SURAJ), Daphne BURTON MD Unavailable Unavailab le PAULA (SURAJ), Daphne BURTON MD Unavailable Unavailab le PAULA (SURAJ), Daphne BURTON MD Unavailable Unavailab le PAULA (SURAJ), Daphne BURTON MD Unavailable Unavailab le PAULA (SURAJ), Daphne BURTON MD Unavailable Unavailab le PAULA (SURAJ), Daphne BURTON MD Unavailable Unavailab le PAULA (SURAJ), Daphne BURTON MD Unavailable Unavailab le PAULA (SURAJ), Daphne BURTON MD Unavailable Unavailab le PAULA (SURAJ), Daphne BURTON MD Unavailable Unavailab le PAULA (SURAJ), Dpahne BURTON MD Unavailable Unavailab le PAULA (SURAJ), Daphne MICHEAL NG Unavailable Unavailab le PAULA (SURAJ), M MICHEAL NG Unavailable Unavailab le PAULA (SURAJ), M MICHEAL NG Unavailable Unavailab le PAULA (SURAJ), M MICHEAL NG Unavailable Unavailab le PAULA (SURAJ), Daphne MICHEAL NG Unavailable Unavailab le PAULA (SURAJ), M MICHEAL NG Unavailable Unavailab le PAULA (SURAJ), M MICHEAL NG Unavailable Unavailab le PAULA (SURAJ), M MICHEAL NG Unavailable Unavailab le PAULA (SURAJ), Daphne MICHEAL NG Unavailable Unavailab le PAULA (SURAJ), Daphne MICHEAL NG Unavailable Unavailab le PAULA (SUARJ), Daphne BURTON MD Unavailable Unavailab le LETTIERE, A SON PA Unavailable Unavailable LETTIERE, A SON PA Unavailable Unavailable LETTIERE, A SON PA Unavailable Unavailable LETTIERE, A SON PA Unavailable Unavailable LETTIERE, A SON PA Unavailable Unavailable LETTIERE, A SON PA Unavailable Unavailable LETTIERE, A SON PA Unavailable Unavailable LETTIERE, A SON PA Unavailable Unavailable LETTIERE, A SON PA Unavailable Unavailable LETTIERE, A SON PA Unavailable Unavailable LETTIERE, A SON PA Unavailable Unavailable LETTIERE, A SON PA Unavailable Unavailable LETTIERE, A SON PA Unavailable Unavailable LETTIERE, A SON PA Unavailable Unavailable LETTIERE, A SON PA Unavailable Unavailable LETTIERE, A SON PA Unavailable Unavailable LETTIERE, A SON PA Unavailable Unavailable LETTIERE, A SON PA Unavailable Unavailable LETTIERE, A SON PA Unavailable Unavailable LETTIERE, A SON PA Unavailable Unavailable LETTIERE, A SON PA Unavailable Unavailable LETTIERE, A SON PA Unavailable Unavailable LETTIERE, A SON PA Unavailable Unavailable LETTIERE, A SON PA Unavailable Unavailable LETTIERE, A SON PA Unavailable Unavailable LETTIERE, A SON PA Unavailable Unavailable LETTIERE, A SON PA Unavailable Unavailable LETTIERE, A SON PA Unavailable Unavailable LETTIERE, A SON PA Unavailable Unavailable Re-disclosure Warning The records that you are about to access may contain information from federally-assisted alcohol or drug abuse programs. If such information is present, then the following federally mandated warning applies: This information has been disclosed to you from records protected by federal confidentiality rules (42 CFR part 2). The federal rules prohibit you from making any further disclosure of this information unless further disclosure is expressly permitted by the written consent of the person to whom it pertains or as otherwise permitted by 42 CFR part 2. A general authorization for the release of medical or other information is NOT sufficient for this purpose. The Federal rules restrict any use of the information to criminally investigate or prosecute any alcohol or drug abuse patient.The records that you are about to access may contain highly sensitive health information, the redisclosure of which is protected by Article 27-F of the [facility] Public Health law. If you continue you may have access to information: Regarding HIV / AIDS; Provided by facilities licensed or operated by the [facility] Office of Mental Health; or Provided by the [facility] Office for People With Developmental Disabilities. If such information is present, then the following [facility] mandated warning applies: This information has been disclosed to you from confidential records which are protected by state law. State law prohibits you from making any further disclosure of this information without the specific written consent of the person to whom it pertains, or as otherwise permitted by law. Any unauthorized further disclosure in violation of state law may result in a fine or half-way sentence or both. A general authorization for the release of medical or other information is NOT sufficient authorization for further disc losure. Family History Family Member Name Family Member Gender Family Member Status Date o f Status Description Data Source(s) Unknown Unknown Problem [facility] ([facility]) Unknown Unknown Problem [facility] ([facility]) pgf Encounters Encounter Providers Location Date Indications Data Source(s ) Outpatient Attender: SON coates 08/03/2020 10:45:00 AM EST [facility] ([facility] Outpatient Attender: Son BERG [place] [facility] 09/2019 02:15:00 PM EST [facility] ([facility] Attender: MICHEAL MITCHELL (MITCHELL) MDReferrer: Daphne BERG 01/20/2020 08:20:07 PM EDT [facility] Attender: MICHEAL MITCHELL (MITCHELL) MDReferrer: Daphne BERG 01/20/2020 08:20:07 PM EDT [facility] Attender: MICHEAL TURCIOS) MDReferrer: Daphne BERG 01/15/2020 08:20:07 PM EDT [facility] Outpatient Attender: Son BERG [place] [facility] 01:15:00 PM EDT [facility] ([facility] Outpatient Referrer: JENELLE BOYD MD 01/02/2020 05:20:00 AM EDT [facility] Attender: MICHEAL TURCIOS) MDReferrer: Daphne BERG 11/21/2019 08:20:05 PM EDT [facility] Outpatient Referrer: JENELLE BOYD MD 10/10/2019 04:21:00 PM EDT [facility] Outpatient Referrer: JENELLE BOYD MD 10/10/2019 04:05:00 PM EDT [facility] Outpatient Attender: Son BERG [place] [facility] 03:15:00 PM EDT [facility] ([facility] Outpatient Referrer: JENELLE BOYD MD 09/19/2019 11:04:00 AM EST [facility] Outpatient Referrer: JENELLE BOYD MD 09/19/2019 11:01:00 AM EST [facility] Outpatient Attender: 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 1 08/31/2018 08:04:00 AM EST - 06/30/2019 08:43:00 AM EST [facility] Medications Medication Brand Name Start Date Product Form Dose Route Admi nistrative Instructions Pharmacy Instructions Status Indications Reaction Description Data Source(s) 137 mcg (0.1 %) 08/03/2020 12:00:00 AM EST aerosol,spray 30 INSTILL 2 SPRAYS IN EACH NOSTRIL ONCE DAILY INSTILL 2 SPRAYS IN EACH NOSTRIL ONCE DAILY SOLD: 08/03/2020 [facility] 875 mg 08/03/2020 12:00:00 AM EST tablet 20 TAKE ONE TABLET BY MOUTH EVERY 12 HOURS FOR 10 DAYS TAKE ONE TABLET BY MOUTH EVERY 12 HOURS FOR 10 DAYS SO LD: 08/03/2020 [facility] Amoxicillin 875 MG Oral Tablet Amoxicillin 08/03/2020 12:00:00 AM EST active [facility] ([facility]) Azelastine HCL (Nasal) Azelastine HCL (Nasal) 08/03/2020 12:00:[address] active [facility] ([facility]) Alprazolam 0.25 MG Oral Tablet ALPRAZOLAM 07/27/2020 12:00:00 AM EST tablet 60 TAKE ONE TABLET BY MOUTH TWICE A DAY NEEDED FOR ANXIETY, MAXIMUM DAILY DOSE = TWO TABLETS TAKE ONE TABLET BY MOUTH TWICE A DAY NEEDED FOR ANXIETY, MAXIMUM DAILY DOSE = TWO TABLETS SOLD: 07/28/2020 [facility] Alprazolam 0.25 MG Oral Tablet ALPRAZOLAM 05/19/2020 12:00:00 AM EST tablet 60 TAKE ONE TABLET BY MOUTH TWICE A DAY NEEDED , MAXIM UM DAILY DOSE = 2 TABLETS TAKE ONE TABLET BY MOUTH TWICE A DAY NEEDED , MAXIMUM DAILY DOSE = 2 TABLETS SOLD: 05/23/2020 [facility] 90 mcg/actuation 04/22/2020 12:00:00 AM EDT HFA aerosol inha ler 18 INHALE TWO PUFFS BY MOUTH EVERY 4 TO 6 HOURS NEEDED INHALE TWO PUFFS BY MOUTH EVERY 4 TO 6 HOURS NEEDED SOLD: 04/24/2020 [facility] Alprazolam 0.25 MG Oral Tablet ALPRAZOLAM 04/13/2020 12:00:00 AM EDT tablet 60 TAKE ONE TABLET BY MOUTH TWICE A DAY NEEDED FOR ANXIETY , MAXIMUM DAILY DOSE = 2 TABLETS TAKE ONE TABLET BY MOUTH TWICE A DAY NEEDED FOR ANXIETY , MAXIMUM DAILY DOSE = 2 TABLETS SOLD: 04/15/2020 [facility] Famotidine 20 MG Oral Tablet FAMOTIDINE 04/13/2020 12:00:00 AM EDT tab let 180 TAKE ONE TABLET BY MOUTH TWICE A DAY TAKE ONE TABLET BY MOUTH TWICE A DAY SOLD: 04/15/2020 [facility] 1 gram 04/13/2020 12:00:00 AM EDT tablet 120 TAKE ONE TABLET BY MOUTH FOUR TIMES A DAY TAKE ONE TABLET BY MOUTH FOUR TIMES A DAY SOLD: 04/15/2020 [facility] 1 gram 04/13/2020 12:00:00 AM EDT tablet 120 TAKE ONE TABLET BY MOUTH FOUR TIMES A DAY TAKE ONE TABLET BY MOUTH FOUR TIMES A DAY SOLD: 07/26/2020 [facility] 5 mg 03/03/2020 12:00:00 AM EDT tablet 90 TAKE ONE TABLET BY MOUTH EVERY DAY TAKE ONE TABLET BY MOUTH EVERY DAY SOLD: 03/10/2020 [facility] [id number] -5.86 gram 03/02/2020 12:00:00 AM EDT recon s oln 4000 DIRECTED BY GASTROENTEROLOGY AND HEPATOLOGY DIRECTED BY GASTROENTEROLOGY AND HEPATOLOGY SOLD: 03/10/2020 [facility] 236-22.74-6.74 -5.86 gram 02/27/2020 12:00:00 AM EDT recon s oln 4000 USE DIRECTED BY GASTROENTEROLOGY & HEPATOLOGY USE DIRECTED BY GASTROENTEROLOGY & HEPATOLOGY SOLD: 02/28/2020 [facility] 1 % 01/22/2020 12:00:00 AM EDT cream with perineal martin licator 28 INSERT ONE APPLICATION INTO THE RECTUM ONCE DAILY AT BEDTIME NEEDED INSERT ONE APPLICATION INTO THE RECTUM ONCE DAILY AT BEDTIME NEEDED SOLD: 01/25/2020 [facility] 20 mg 01/21/2020 12:00:00 AM EDT capsule,delayed release (DR/EC) 60 TAKE ONE CAPSULE BY MOUTH TWICE A DAY - 30 MINUTES BEFORE MEALS TAKE ONE CAPSULE BY MOUTH TWICE A DAY - 30 MINUTES BEFORE MEALS SOLD: 01/25/2020 [facility] 0.125 mg 01/21/2020 12:00:00 AM EDT tablet,disintegrating [address] ONE TABLET BY MOUTH THREE TIMES A DAY NEEDED PLACE ONE TABLET BY MOUTH THREE TIMES A DAY NEEDED SOLD: 01/25/2020 [facility] 20 mg 01/21/2020 12:00:00 AM EDT capsule,delayed release (DR/EC) 60 TAKE ONE CAPSULE BY MOUTH TWICE A DAY - 30 MINUTES BEFORE MEALS TAKE ONE CAPSULE BY MOUTH TWICE A DAY - 30 MINUTES BEFORE MEALS SOLD: 07/26/2020 [facility] 500 mg 01/09/2020 12:00:00 AM EDT tablet 21 TAKE ONE TABLET BY MOUTH THREE TIMES A DAY TAKE ONE TABLET BY MOUTH THREE TIMES A DAY SOLD: 01/09/2020 [facility] Fluconazole 150 MG Oral Tablet [Diflucan] Diflucan 01/09/2020 1 2:00:00 AM EDT ORAL completed [facility] ([facility] Metronidazole 500 MG Oral Tablet [Flagyl] Flagyl 01/09/2020 12:00 :00 AM EDT ORAL completed [facility] ([facility] Ciprofloxacin 500 MG Oral Tablet Ciprofloxacin HCL 01/09/2020 12:00 :00 AM EDT ORAL completed [facility] ([facility] Alprazolam 0.25 MG Oral Tablet ALPRAZOLAM 01/09/2020 12:00:00 AM EDT tablet 60 TAKE ONE TABLET BY MOUTH TWICE A DAY NEEDED FOR ANXIETY, MAXIMUM DAILY DOSE = TWO TABLETS TAKE ONE TABLET BY MOUTH TWICE A DAY NEEDED FOR ANXIETY, MAXIMUM DAILY DOSE = TWO TABLETS SOLD: 01/09/2020 [facility] 150 mg 01/09/2020 12:00:00 AM EDT tablet 2 TAKE 1 TABLET BY MOUTH TODAY FOLLOWED BY 1 TABLET IN ONE WEEK TAKE 1 TABLET BY MOUTH TODAY FOLLOWED BY 1 TABLET IN ONE WEEK SOLD: 01/09/2020 [facility] 500 mg 01/09/2020 12:00:00 AM EDT tablet 20 TAKE ONE TABLET BY MOUTH TWICE A DAY TAKE ONE TABLET BY MOUTH TWICE A DAY SOLD: 01/09/2020 [facility] 500 mg 12/17/2019 12:00:00 AM EDT tablet 14 TAKE ONE TABLET BY MOUTH TWICE A DAY TAKE ONE TABLET BY MOUTH TWICE A DAY SOLD: 12/17/2019 [facility] 10 mg 12/17/2019 12:00:00 AM EDT tablet 20 TAKE ONE TABLET BY MOUTH EVERY 6 HOURS NEEDED FOR PAIN TAKE ONE TABLET BY MOUTH EVERY 6 HOURS A S NEEDED FOR PAIN SOLD: 12/17/2019 [facility] 500 mg 12/17/2019 12:00:00 AM EDT tablet 30 TAKE ONE TABLET BY MOUTH EVERY 8 HOURS TAKE ONE TABLET BY MOUTH EVERY 8 HOURS SOLD: 12/17/2019 [facility] 150 mg 12/17/2019 12:00:00 AM EDT tablet 1 TAKE ONE TABLET BY MOUTH ONCE FOR YEAST INFECTION TAKE ONE TABLET BY MOUTH ONCE FOR YEAST INFECTION SOLD : 12/17/2019 [facility] Alprazolam 0.25 MG Oral Tablet ALPRAZOLAM 11/06/2019 12:00:00 AM EDT tablet 60 TAKE ONE TABLET BY MOUTH TWICE A DAY NEEDED FOR ANXIETY, MAXIMUM DAILY DOSE = TWO TABLETS TAKE ONE TABLET BY MOUTH TWICE A DAY NEEDED FOR ANXIETY, MAXIMUM DAILY DOSE = TWO TABLETS SOLD: 11/07/2019 [facility] 5 mg 10/17/2019 12:00:00 AM EDT tablet 90 TAKE ONE TABLET BY MOUTH EVERY DAY TAKE ONE TABLET BY MOUTH EVERY DAY SOLD: 10/18/2019 [facility] Benzoyl Peroxide 0.05 MG/MG / Clindamycin 0.01 MG/MG T opical Gel Clindamycin Phosphate/Benzoyl Peroxide 10/16/2019 12:00:00 AM EDT active [facility] ([facility] Bisoprolol Fumarate 5 MG Oral Tablet Bisoprolol Fumarate 08/2019 12:00:00 AM EDT ORAL active [facility] ([facility] Metronidazole 0.0075 MG/MG Topical Gel Metronidazole 0 12:00:00 AM EDT completed [facility] ([facility] 145 mcg 10/13/2019 12:00:00 AM EDT capsule 90 TAKE ONE CAPSULE BY MOUTH EVERY DAY ( IBS WITH CONSTIPATION) TAKE ONE CAPSULE BY MOUTH EVERY DAY ( IB S WITH CONSTIPATION) SOLD: 10/18/2019 [facility] 20 mg 10/10/2019 12:00:00 AM EDT tablet 180 TAKE 1 TABLET BY MOUTH TWICE DAILY TAKE 1 TABLET BY MOUTH TWICE DAILY SOLD: 10/11/2019 [facility] 90 mcg/actuation 10/09/2019 12:00:00 AM EDT HFA aerosol inha ler 18 INHALE 2 PUFFS BY MOUTH EVERY 4-6 HOURS NEEDED INHALE 2 PUFFS BY MOUTH EVERY 4-6 HOURS NEEDED SOLD: 07/26/2020 [facility] 90 mcg/actuation 10/09/2019 12:00:00 AM EDT HFA aerosol inha ler 18 INHALE 2 PUFFS BY MOUTH EVERY 4-6 HOURS NEEDED INHALE 2 PUFFS BY MOUTH EVERY 4-6 HOURS NEEDED SOLD: 10/11/2019 [facility] 0.05 % 10/09/2019 12:00:00 AM EDT ointment 50 APPLY TOPICALLY TO ARM TWO TIMES A DAY NEEDED APPLY TOPICALLY TO ARM TWO TIMES A DAY NEEDED SOLD: 10/11/2019 [facility] Betamethasone 0.0005 MG/MG Augmented Topical Ointment Augmented Betamethasone Dipropionate 10/08/2019 12:00:00 AM EDT active [facility] ([facility] Alprazolam 0.25 MG Oral Tablet ALPRAZOLAM 09/20/2019 12:00:00 AM EST tablet 60 TAKE ONE TABLET BY MOUTH TWICE A DAY NEEDED MAXIMUM DAILY DOSE = TWO TABLETS TAKE ONE TABLET BY MOUTH TWICE A DAY NEEDED MAXIMUM DAILY DOSE = TWO TABLETS SOLD: 09/23/2019 [facility] 1.2 %(1 % base) -5 % 06/30/2019 12:00:00 AM EST gel 45 APPLY TO FACE ONCE DAILY APPLY TO FACE ONCE DAILY SOLD: 07/02/2019 [facility] 1 % 06/30/2019 12:00:00 AM EST gel 60 APPLY TO FACE ONCE DAILY APPLY TO FACE ONCE DAILY SOLD: 07/02/2019 [facility] 1.2 %(1 % base) -5 % 06/30/2019 12:00:00 AM EST gel 45 APPLY TO FACE ONCE DAILY APPLY TO FACE ONCE DAILY SOLD: 08/04/2019 [facility] 1 % 06/30/2019 12:00:00 AM EST gel 60 APPLY TO FACE ONCE DAILY APPLY TO FACE ONCE DAILY SOLD: 08/04/2019 [facility] 50 mg 06/20/2019 12:00:00 AM EST tablet 20 TAKE ONE TABLET BY MOUTH EVERY 6 HOURS NEEDED FOR PAIN MAXIMUM DAILY DOSE = FOUR TABLETS TAKE ONE TABLET BY MOUTH EVERY 6 HOURS NEEDED FOR PAIN MAXIMUM DAILY DOSE = FOUR TABLETS SOLD: 06/20/2019 [facility] 10 mg 06/16/2019 12:00:00 AM EST tablet 20 TAKE ONE TABLET BY MOUTH EVERY 6 HOURS NEEDED FOR PAIN TAKE ONE TABLET BY MOUTH EVERY 6 HOURS A S NEEDED FOR PAIN SOLD: 06/16/2019 [facility] 10 mg 06/16/2019 12:00:00 AM EST tablet 30 TAKE ONE TABLET BY MOUTH EVERY EVENING FOR MUSCLE SPASMS TAKE ONE TABLET BY MOUTH EVERY EVENING F OR MUSCLE SPASMS SOLD: 06/16/2019 [facility] 5 mg 05/30/2019 12:00:00 AM EST tablet 45 TAKE 1/2 - 1 TABLET BY MOUTH ONCE DAILY DIRECTED BY ADMINISTRATIVE ASSISTANT TAKE 1/2 - 1 TABLET BY MOUTH ONCE DAILY DIRECTED BY ADMINISTRATIVE ASSISTANT SOLD: 07/12/2019 [facility] 5 mg 05/30/2019 12:00:00 AM EST tablet 45 TAKE 1/2 - 1 TABLET BY MOUTH ONCE DAILY DIRECTED BY ADMINISTRATIVE ASSISTANT TAKE 1/2 - 1 TABLET BY MOUTH ONCE DAILY DIRECTED BY ADMINISTRATIVE ASSISTANT SOLD: 2019 [facility] 5 mg 05/30/2019 12:00:00 AM EST tablet 45 TAKE 1/2 - 1 TABLET BY MOUTH ONCE DAILY DIRECTED BY ADMINISTRATIVE ASSISTANT TAKE 1/2 - 1 TABLET BY MOUTH ONCE DAILY DIRECTED BY ADMINISTRATIVE ASSISTANT SOLD: 12/23/2019 [facility] 0.15 % (205.5 mcg) 04/02/2019 12:00:00 AM EDT spray,non-aero caron 30 SPRAY TWO SPRAYS IN EACH NOSTRIL EVERY DAY SPRAY TWO SPRAYS IN EACH NOSTRIL EVERY DAY SOLD: 10/02/2019 [facility] 1 gram 04/02/2019 12:00:00 AM EDT tablet 120 TAKE ONE TABLET BY MOUTH FOUR TIMES A DAY TAKE ONE TABLET BY MOUTH FOUR TIMES A DAY SOLD: 09/06/2019 [facility] Insurance Providers Payer name Policy type / Coverage type Policy ID Covered green party ID Covered green party's relationship to jimenez Policy Jimenez Plan Information [facility] FEDERAL EMPLOYEE PROGRAM [id number] SP [id number] [facility] EMP [id number] [facility] COMMUNITY PLAN [id number] [place] FED[place]AL B [id number] S [id number] EXCELLUS BCBS [id number] Mya [id number] EXCELLUS C [id number] Self [id number] EXCELLUS C [id number] Self [id number] [facility] FEDERAL EMPLOYEE PROGRAM [id number] SP [id number] BS Fep Commercial [id number] Self [id number] Federal Plan Commercial [id number] Self [id number] Federal Plan Commercial [id number] Self [id number] BLUE CARD C [id number] Self [id number] MEDICAID [id number] Self [id number] BLUE CARD C [id number] Self [id number] [facility] I [id number] Self [id number] TRAVELERS [place] W [id number] Empl [id number] Federal Plan Commercial [id number] Self R [id number] [place] CC# 002 CB [id number] CC# 002 CB [id number] [facility] COMMUNITY PLAN [facility] [id number] SP [id number] EXCELLUS BCBS FEDERAL [id number] SP [id number] MEDICAID [id number] SP [id number] EXCELLUS BCBS FEDERAL [id number] SP [id number] BCBS Federal Plan Commercial [id number] Self [id number] SELECTIVE INS WORKER COMP [id number] SP [id number] [facility] Health Maintenance Organization (HMO) Self SELECTIVE INS [id number] SP [id number] [facility] O [id number] S [id number] OTHER WORKERS COMPENSATION [id number] SP [id number] [facility] COMMUNITY PLAN MEDICAID [id number] [facility] COMMUNITY PLAN [id number] SP [id number] TRAVELERS WORKER COMP [id number] SP [id number] MEDFOCUS S [id number] S [id number] MEDFOCUS P [id number] S [id number] MEDFOCUS P [id number] S [id number] TRAVELERS WORKER COMP S [id number] S [id number] EXCELLUS I [id number] Self [id number] EXCELLUS BCBS P [id number] S [id number] TRAVELERS WORKER COMP [id number] SP [id number] BLUE CROSS [place] PLAN [id number] SP [id number] MEDFOCUS P [id number] S [id number] HMO BLUE [id number] SP [id number] TRAVELERS WORKER COMP P [id number] S [id number] Problems, Conditions, and Diagnoses Code Display Name Description Problem Type Effective Dates Data Source(s) [id number] Hiatal hernia Hiatal hernia Problem 05/12/2020 12:00:00 AM EDT [facility] ([facility] [id number] Asthma Asthma Problem 10/08/2019 12:00:00 AM ED T [facility] ([facility] Results ID Date Data Source [id number] 08/04/2020 11:05:00 AM EST [facility] Name Value Range Interpretation Code Description Data Rachel rce(s) Supporting Document(s) SARS coronavirus 2 RNA Detected [facility] This lab was ordered by [facility] and reported by [facility]. ID Date Data Source [id number] 08/04/2020 11:05:00 AM EST [facility] ([facility] Name Value Range Interpretation Code Description Data Rachel rce(s) Supporting Document(s) Laboratory test finding (navigational concept) Laboratory test result [facility] ([facility] This nucleic acid amplification test was developed and its performance characteristics determined by [facility]. Nucleic acid amplification tests include RT- PCR [...] detected) result in this assay. Performed at: [facility] [address], [place] [id number] Kiln Remover: Deidre Yoo PhD, Phone: [phone] Detected ID Date Data Source [id number] 08/03/2020 12:00:00 AM EST [facility] Name Value Range Interpretation Code Description Data Rachel rce(s) Supporting Document(s) SARS coronavirus 2 Ag Negative [facility] This lab was ordered by [facility] and reported by [facility]. ID Date Data Source [id number] 05/26/2020 08:57:00 AM EST [facility] ([facility] Name Value Range Interpretation Code Description Data Rachel rce(s) Supporting Document(s) Thyrotropin [Units/volume] in Serum or Plasma 1.200 ulU/mL 0.60-4.8 [facility] ([facility] ID Date Data Source [id number] 05/26/2020 08:56:00 AM EST [facility] ([facility] Name Value Range Interpretation Code Description Data Rachel rce(s) Supporting Document(s) Trig 57 mg/dL 40-200 [facility] ([facility] NORMAL RANGES Age WBC RBC HGB HCT [...] HCT IS 5% LESS SOURCE FOR DATA: [employer] 1800 OPERATION MANUAL( AUTOMATED BLOOD COUNTS AND [...] DESIRABLE: <130 MG/DL <110 MG/DL BORDERLINE-HIGH RISK: 130- 159 MG/DL 110-129 MG/DL HIGH RISK: >160 MG/DL >130 MG/DL *CHILDREN AND ADOLESCENTS REPRESENTS INDIVIDUALA AGED 2-19 YEARS EXCLUSIVE. Cholesterol in HDL [Mass/volume] in Serum or Plasma 37 mg/dL 45-65 Below low normal [facility] ([facility] ) NORMAL RANGES Age WBC RBC HGB HCT [...] HCT IS 5% LESS SOURCE FOR DATA: [employer] 1800 OPERATION MANUAL( AUTOMATED BLOOD COUNTS AND [...] DESIRABLE: <130 MG/DL <110 MG/DL BORDERLINE-HIGH RISK: 130- 159 MG/DL 110-129 MG/DL HIGH RISK: >160 MG/DL >130 MG/DL *CHILDREN AND ADOLESCENTS REPRESENTS INDIVIDUALA AGED 2-19 YEARS EXCLUSIVE. Chol 115 mg/dL 0-200 [facility] NORMAL RANGES Age WBC RBC HGB HCT [...] HCT IS 5% LESS SOURCE FOR DATA: [employer] 1800 OPERATION MANUAL( AUTOMATED BLOOD COUNTS AND [...] DESIRABLE: <130 MG/DL <110 MG/DL BORDERLINE-HIGH RISK: 130- 159 MG/DL 110-129 MG/DL HIGH RISK: >160 MG/DL >130 MG/DL *CHILDREN AND ADOLESCENTS REPRESENTS INDIVIDUALA AGED 2-19 YEARS EXCLUSIVE. Cho/HDL Ratio 3.1 CALC [facility] ([facility] NORMAL RANGES Age WBC RBC HGB HCT [...] HCT IS 5% LESS SOURCE FOR DATA: [employer] 1800 OPERATION MANUAL( AUTOMATED BLOOD COUNTS AND [...] DESIRABLE: <130 MG/DL <110 MG/DL BORDERLINE-HIGH RISK: 130- 159 MG/DL 110-129 MG/DL HIGH RISK: >160 MG/DL >130 MG/DL *CHILDREN AND ADOLESCENTS REPRESENTS INDIVIDUALA AGED 2-19 YEARS EXCLUSIVE. LDL_C 66 Calc 75-129 Below low normal [facility] ( [facility] NORMAL RANGES Age WBC RBC HGB HCT [...] HCT IS 5% LESS SOURCE FOR DATA: [employer] 1800 OPERATION MANUAL( AUTOMATED BLOOD COUNTS AND [...] DESIRABLE: <130 MG/DL <110 MG/DL BORDERLINE-HIGH RISK: 130- 159 MG/DL 110-129 MG/DL HIGH RISK: >160 MG/DL >130 MG/DL *CHILDREN AND ADOLESCENTS REPRESENTS INDIVIDUALA AGED 2-19 YEARS EXCLUSIVE. ID Date Data Source [id number] 05/26/2020 08:56:00 AM EST [facility] ([facility] Name Value Range Interpretation Code Description Data Rachel rce(s) Supporting Document(s) Glu 95 mg/dL 70-110 [facility] NORMAL RANGES Age WBC RBC HGB HCT [...] HCT IS 5% LESS SOURCE FOR DATA: [employer] 1800 OPERATION MANUAL( AUTOMATED BLOOD COUNTS AND [...] DESIRABLE: <130 MG/DL <110 MG/DL BORDERLINE-HIGH RISK: 130- 159 MG/DL 110-129 MG/DL HIGH RISK: >160 MG/DL >130 MG/DL *CHILDREN AND ADOLESCENTS REPRESENTS INDIVIDUALA AGED 2-19 YEARS EXCLUSIVE. BUN/Creatinine Ratio 16.8 CALC [facility] ([facility] NORMAL RANGES Age WBC RBC HGB HCT [...] HCT IS 5% LESS SOURCE FOR DATA: [employer] 1800 OPERATION MANUAL( AUTOMATED BLOOD COUNTS AND [...] DESIRABLE: <130 MG/DL <110 MG/DL BORDERLINE-HIGH RISK: 130- 159 MG/DL 110-129 MG/DL HIGH RISK: >160 MG/DL >130 MG/DL *CHILDREN AND ADOLESCENTS REPRESENTS INDIVIDUALA AGED 2-19 YEARS EXCLUSIVE. BUN 16 mg/dL 8-23 [facility] NORMAL RANGES Age WBC RBC HGB HCT [...] HCT IS 5% LESS SOURCE FOR DATA: [employer] 1800 OPERATION MANUAL( AUTOMATED BLOOD COUNTS AND [...] DESIRABLE: <130 MG/DL <110 MG/DL BORDERLINE-HIGH RISK: 130- 159 MG/DL 110-129 MG/DL HIGH RISK: >160 MG/DL >130 MG/DL *CHILDREN AND ADOLESCENTS REPRESENTS INDIVIDUALA AGED 2-19 YEARS EXCLUSIVE. Creat 0.9 mg/dL 0.5-1.0 [place] ([facility] NORMAL RANGES Age WBC RBC HGB HCT [...] HCT IS 5% LESS SOURCE FOR DATA: [employer] 1800 OPERATION MANUAL( AUTOMATED BLOOD COUNTS AND [...] DESIRABLE: <130 MG/DL <110 MG/DL BORDERLINE-HIGH RISK: 130- 159 MG/DL 110-129 MG/DL HIGH RISK: >160 MG/DL >130 MG/DL *CHILDREN AND ADOLESCENTS REPRESENTS INDIVIDUALA AGED 2-19 YEARS EXCLUSIVE. CL 101.5 mmol/L 98.0-107.0 [facility] ([facility] NORMAL RANGES Age WBC RBC HGB HCT [...] HCT IS 5% LESS SOURCE FOR DATA: [employer] 1800 OPERATION MANUAL( AUTOMATED BLOOD COUNTS AND [...] DESIRABLE: <130 MG/DL <110 MG/DL BORDERLINE-HIGH RISK: 130- 159 MG/DL 110-129 MG/DL HIGH RISK: >160 MG/DL >130 MG/DL *CHILDREN AND ADOLESCENTS REPRESENTS INDIVIDUALA AGED 2-19 YEARS EXCLUSIVE. Na 137 mmol/L 136-145 [facility] ([facility] NORMAL RANGES Age WBC RBC HGB HCT [...] HCT IS 5% LESS SOURCE FOR DATA: [employer] 1800 OPERATION MANUAL( AUTOMATED BLOOD COUNTS AND [...] DESIRABLE: <130 MG/DL <110 MG/DL BORDERLINE-HIGH RISK: 130- 159 MG/DL 110-129 MG/DL HIGH RISK: >160 MG/DL >130 MG/DL *CHILDREN AND ADOLESCENTS REPRESENTS INDIVIDUALA AGED 2-19 YEARS EXCLUSIVE. K 4.5 mmol/L 3.5-5.1 [place] ([facility] NORMAL RANGES Age WBC RBC HGB HCT [...] HCT IS 5% LESS SOURCE FOR DATA: [employer] 1800 OPERATION MANUAL( AUTOMATED BLOOD COUNTS AND [...] DESIRABLE: <130 MG/DL <110 MG/DL BORDERLINE-HIGH RISK: 130- 159 MG/DL 110-129 MG/DL HIGH RISK: >160 MG/DL >130 MG/DL *CHILDREN AND ADOLESCENTS REPRESENTS INDIVIDUALA AGED 2-19 YEARS EXCLUSIVE. Co2 25.7 mmol/L 22.0-29.0 [facility] NORMAL RANGES Age WBC RBC HGB HCT [...] HCT IS 5% LESS SOURCE FOR DATA: [employer] 1800 OPERATION MANUAL( AUTOMATED BLOOD COUNTS AND [...] DESIRABLE: <130 MG/DL <110 MG/DL BORDERLINE-HIGH RISK: 130- 159 MG/DL 110-129 MG/DL HIGH RISK: >160 MG/DL >130 MG/DL *CHILDREN AND ADOLESCENTS REPRESENTS INDIVIDUALA AGED 2-19 YEARS EXCLUSIVE. CA 9.5 mg/dL 8.6-10.2 [facility] ([facility] NORMAL RANGES Age WBC RBC HGB HCT [...] HCT IS 5% LESS SOURCE FOR DATA: [employer] 1800 OPERATION MANUAL( AUTOMATED BLOOD COUNTS AND [...] DESIRABLE: <130 MG/DL <110 MG/DL BORDERLINE-HIGH RISK: 130- 159 MG/DL 110-129 MG/DL HIGH RISK: >160 MG/DL >130 MG/DL *CHILDREN AND ADOLESCENTS REPRESENTS INDIVIDUALA AGED 2-19 YEARS EXCLUSIVE. TP 7.0 g/dL 6.6-8.7 [facility] NORMAL RANGES Age WBC RBC HGB HCT [...] HCT IS 5% LESS SOURCE FOR DATA: [employer] 1800 OPERATION MANUAL( AUTOMATED BLOOD COUNTS AND [...] DESIRABLE: <130 MG/DL <110 MG/DL BORDERLINE-HIGH RISK: 130- 159 MG/DL 110-129 MG/DL HIGH RISK: >160 MG/DL >130 MG/DL *CHILDREN AND ADOLESCENTS REPRESENTS INDIVIDUALA AGED 2-19 YEARS EXCLUSIVE. Alb 4.2 g/dL 3.4-4.8 [facility] NORMAL RANGES Age WBC RBC HGB HCT [...] HCT IS 5% LESS SOURCE FOR DATA: [employer] 1800 OPERATION MANUAL( AUTOMATED BLOOD COUNTS AND [...] DESIRABLE: <130 MG/DL <110 MG/DL BORDERLINE-HIGH RISK: 130- 159 MG/DL 110-129 MG/DL HIGH RISK: >160 MG/DL >130 MG/DL *CHILDREN AND ADOLESCENTS REPRESENTS INDIVIDUALA AGED 2-19 YEARS EXCLUSIVE. A/G Ratio 1.5 CALC [facility] ([facility] NORMAL RANGES Age WBC RBC HGB HCT [...] HCT IS 5% LESS SOURCE FOR DATA: [employer] 1800 OPERATION MANUAL( AUTOMATED BLOOD COUNTS AND [...] DESIRABLE: <130 MG/DL <110 MG/DL BORDERLINE-HIGH RISK: 130- 159 MG/DL 110-129 MG/DL HIGH RISK: >160 MG/DL >130 MG/DL *CHILDREN AND ADOLESCENTS REPRESENTS INDIVIDUALA AGED 2-19 YEARS EXCLUSIVE. Globulin 2.7 CALC [facility] ([facility] NORMAL RANGES Age WBC RBC HGB HCT [...] HCT IS 5% LESS SOURCE FOR DATA: [employer] 1800 OPERATION MANUAL( AUTOMATED BLOOD COUNTS AND [...] DESIRABLE: <130 MG/DL <110 MG/DL BORDERLINE-HIGH RISK: 130- 159 MG/DL 110-129 MG/DL HIGH RISK: >160 MG/DL >130 MG/DL *CHILDREN AND ADOLESCENTS REPRESENTS INDIVIDUALA AGED 2-19 YEARS EXCLUSIVE. Alp 81.9 U/L 35-129 [facility] NORMAL RANGES Age WBC RBC HGB HCT [...] HCT IS 5% LESS SOURCE FOR DATA: [employer] 1800 OPERATION MANUAL( AUTOMATED BLOOD COUNTS AND [...] DESIRABLE: <130 MG/DL <110 MG/DL BORDERLINE-HIGH RISK: 130- 159 MG/DL 110-129 MG/DL HIGH RISK: >160 MG/DL >130 MG/DL *CHILDREN AND ADOLESCENTS REPRESENTS INDIVIDUALA AGED 2-19 YEARS EXCLUSIVE. Alt (SGPT) 13 U/L 0-41 [facility] ([facility] NORMAL RANGES Age WBC RBC HGB HCT [...] HCT IS 5% LESS SOURCE FOR DATA: [employer] 1800 OPERATION MANUAL( AUTOMATED BLOOD COUNTS AND [...] DESIRABLE: <130 MG/DL <110 MG/DL BORDERLINE-HIGH RISK: 130- 159 MG/DL 110-129 MG/DL HIGH RISK: >160 MG/DL >130 MG/DL *CHILDREN AND ADOLESCENTS REPRESENTS INDIVIDUALA AGED 2-19 YEARS EXCLUSIVE. Ast (Sgot) 16 U/L 0-40 [facility] [place] NORMAL RANGES Age WBC RBC HGB HCT [...] HCT IS 5% LESS SOURCE FOR DATA: [employer] 1800 OPERATION MANUAL( AUTOMATED BLOOD COUNTS AND [...] DESIRABLE: <130 MG/DL <110 MG/DL BORDERLINE-HIGH RISK: 130- 159 MG/DL 110-129 MG/DL HIGH RISK: >160 MG/DL >130 MG/DL *CHILDREN AND ADOLESCENTS REPRESENTS INDIVIDUALA AGED 2-19 YEARS EXCLUSIVE. Osmolality-Calculated 274.3 CALC [facility] ([facility] NORMAL RANGES Age WBC RBC HGB HCT [...] HCT IS 5% LESS SOURCE FOR DATA: [employer] 1800 OPERATION MANUAL( AUTOMATED BLOOD COUNTS AND [...] DESIRABLE: <130 MG/DL <110 MG/DL BORDERLINE-HIGH RISK: 130- 159 MG/DL 110-129 MG/DL HIGH RISK: >160 MG/DL >130 MG/DL *CHILDREN AND ADOLESCENTS REPRESENTS INDIVIDUALA AGED 2-19 YEARS EXCLUSIVE. Tbili 0.50 mg/dL 0.0-1.2 [facility] ([facility] NORMAL RANGES Age WBC RBC HGB HCT [...] HCT IS 5% LESS SOURCE FOR DATA: [employer] 1800 OPERATION MANUAL( AUTOMATED BLOOD COUNTS AND [...] DESIRABLE: <130 MG/DL <110 MG/DL BORDERLINE-HIGH RISK: 130- 159 MG/DL 110-129 MG/DL HIGH RISK: >160 MG/DL >130 MG/DL *CHILDREN AND ADOLESCENTS REPRESENTS INDIVIDUALA AGED 2-19 YEARS EXCLUSIVE. Anion Gap 14 mmol/L [facility] NORMAL RANGES Age WBC RBC HGB HCT [...] HCT IS 5% LESS SOURCE FOR DATA: [employer] DYN 1800 OPERATION MANUAL( AUTOMATED BLOOD COUNTS AND [...] DESIRABLE: <130 MG/DL <110 MG/DL BORDERLINE-HIGH RISK: 130- 159 MG/DL 110-129 MG/DL HIGH RISK: >160 MG/DL >130 MG/DL *CHILDREN AND ADOLESCENTS REPRESENTS INDIVIDUALA AGED 2-19 YEARS EXCLUSIVE. eGFR Non-Afr. [place]an 75 # [facility] ([facility] NORMAL RANGES Age WBC RBC HGB HCT [...] HCT IS 5% LESS SOURCE FOR DATA: [employer] 1800 OPERATION MANUAL( AUTOMATED BLOOD COUNTS AND [...] DESIRABLE: <130 MG/DL <110 MG/DL BORDERLINE-HIGH RISK: 130- 159 MG/DL 110-129 MG/DL HIGH RISK: >160 MG/DL >130 MG/DL *CHILDREN AND ADOLESCENTS REPRESENTS INDIVIDUALA AGED 2-19 YEARS EXCLUSIVE. eGFR 86 # [facility] ( [facility] NORMAL RANGES Age WBC RBC HGB HCT [...] HCT IS 5% LESS SOURCE FOR DATA: [employer] 1800 OPERATION MANUAL( AUTOMATED BLOOD COUNTS AND [...] DESIRABLE: <130 MG/DL <110 MG/DL BORDERLINE-HIGH RISK: 130- 159 MG/DL 110-129 MG/DL HIGH RISK: >160 MG/DL >130 MG/DL *CHILDREN AND ADOLESCENTS REPRESENTS INDIVIDUALA AGED 2-19 YEARS EXCLUSIVE. ID Date Data Source [id number] 05/26/2020 08:56:00 AM EST [facility] ([facility] Name Value Range Interpretation Code Description Data Rachel rce(s) Supporting Document(s) RBC 4.41 10E6/uL 4-630 [facility] ([facility] NORMAL RANGES Age WBC RBC HGB HCT [...] HCT IS 5% LESS SOURCE FOR DATA: [employer] 1800 OPERATION MANUAL( AUTOMATED BLOOD COUNTS AND [...] DESIRABLE: <130 MG/DL <110 MG/DL BORDERLINE-HIGH RISK: 130- 159 MG/DL 110-129 MG/DL HIGH RISK: >160 MG/DL >130 MG/DL *CHILDREN AND ADOLESCENTS REPRESENTS INDIVIDUALA AGED 2-19 YEARS EXCLUSIVE. WBC 6.4 10E3/uL 4.1-10.9 [facility] NORMAL RANGES Age WBC RBC HGB HCT [...] HCT IS 5% LESS SOURCE FOR DATA: [employer] 1800 OPERATION MANUAL( AUTOMATED BLOOD COUNTS AND [...] DESIRABLE: <130 MG/DL <110 MG/DL BORDERLINE-HIGH RISK: 130- 159 MG/DL 110-129 MG/DL HIGH RISK: >160 MG/DL >130 MG/DL *CHILDREN AND ADOLESCENTS REPRESENTS INDIVIDUALA AGED 2-19 YEARS EXCLUSIVE. HGB 13.5 g/dL 12.0-18.0 [place] ([facility] NORMAL RANGES Age WBC RBC HGB HCT [...] HCT IS 5% LESS SOURCE FOR DATA: [employer] 1800 OPERATION MANUAL( AUTOMATED BLOOD COUNTS AND [...] DESIRABLE: <130 MG/DL <110 MG/DL BORDERLINE-HIGH RISK: 130- 159 MG/DL 110-129 MG/DL HIGH RISK: >160 MG/DL >130 MG/DL *CHILDREN AND ADOLESCENTS REPRESENTS INDIVIDUALA AGED 2-19 YEARS EXCLUSIVE. HCT 39.8 % 37.0-51.0 [facility] ([facility] NORMAL RANGES Age WBC RBC HGB HCT [...] HCT IS 5% LESS SOURCE FOR DATA: [employer] 1800 OPERATION MANUAL( AUTOMATED BLOOD COUNTS AND [...] DESIRABLE: <130 MG/DL <110 MG/DL BORDERLINE-HIGH RISK: 130- 159 MG/DL 110-129 MG/DL HIGH RISK: >160 MG/DL >130 MG/DL *CHILDREN AND ADOLESCENTS REPRESENTS INDIVIDUALA AGED 2-19 YEARS EXCLUSIVE. MCV 90.2 fL 80.0-97.0 [facility] ([facility] NORMAL RANGES Age WBC RBC HGB HCT [...] HCT IS 5% LESS SOURCE FOR DATA: [employer] 1800 OPERATION MANUAL( AUTOMATED BLOOD COUNTS AND [...] DESIRABLE: <130 MG/DL <110 MG/DL BORDERLINE-HIGH RISK: 130- 159 MG/DL 110-129 MG/DL HIGH RISK: >160 MG/DL >130 MG/DL *CHILDREN AND ADOLESCENTS REPRESENTS INDIVIDUALA AGED 2-19 YEARS EXCLUSIVE. MCH 30.6 pg 26.0-32.0 [facility] ([facility] NORMAL RANGES Age WBC RBC HGB HCT [...] HCT IS 5% LESS SOURCE FOR DATA: [employer] 1800 OPERATION MANUAL( AUTOMATED BLOOD COUNTS AND [...] DESIRABLE: <130 MG/DL <110 MG/DL BORDERLINE-HIGH RISK: 130- 159 MG/DL 110-129 MG/DL HIGH RISK: >160 MG/DL >130 MG/DL *CHILDREN AND ADOLESCENTS REPRESENTS INDIVIDUALA AGED 2-19 YEARS EXCLUSIVE. MCHC 33.9 g/dL 31.0-36.0 [facility] NORMAL RANGES Age WBC RBC HGB HCT [...] HCT IS 5% LESS SOURCE FOR DATA: [employer] 1800 OPERATION MANUAL( AUTOMATED BLOOD COUNTS AND [...] DESIRABLE: <130 MG/DL <110 MG/DL BORDERLINE-HIGH RISK: 130- 159 MG/DL 110-129 MG/DL HIGH RISK: >160 MG/DL >130 MG/DL *CHILDREN AND ADOLESCENTS REPRESENTS INDIVIDUALA AGED 2-19 YEARS EXCLUSIVE. PLT 282 10E3/uL 140-440 [facility] ([facility] NORMAL RANGES Age WBC RBC HGB HCT [...] HCT IS 5% LESS SOURCE FOR DATA: [employer] 1800 OPERATION MANUAL( AUTOMATED BLOOD COUNTS AND [...] DESIRABLE: <130 MG/DL <110 MG/DL BORDERLINE-HIGH RISK: 130- 159 MG/DL 110-129 MG/DL HIGH RISK: >160 MG/DL >130 MG/DL *CHILDREN AND ADOLESCENTS REPRESENTS INDIVIDUALA AGED 2-19 YEARS EXCLUSIVE. RDW-CV 13.3 % 11.5-14.5 [facility] ([facility] NORMAL RANGES Age WBC RBC HGB HCT [...] HCT IS 5% LESS SOURCE FOR DATA: [employer] DYN 1800 OPERATION MANUAL( AUTOMATED BLOOD COUNTS AND [...] DESIRABLE: <130 MG/DL <110 MG/DL BORDERLINE-HIGH RISK: 130- 159 MG/DL 110-129 MG/DL HIGH RISK: >160 MG/DL >130 MG/DL *CHILDREN AND ADOLESCENTS REPRESENTS INDIVIDUALA AGED 2-19 YEARS EXCLUSIVE. Neut% 56.3 % 37.0-92.0 [facility] NORMAL RANGES Age WBC RBC HGB HCT [...] HCT IS 5% LESS SOURCE FOR DATA: [email or web address] 1800 OPERATION MANUAL( AUTOMATED BLOOD COUNTS AND [...] DESIRABLE: <130 MG/DL <110 MG/DL BORDERLINE-HIGH RISK: 130- 159 MG/DL 110-129 MG/DL HIGH RISK: >160 MG/DL >130 MG/DL *CHILDREN AND ADOLESCENTS REPRESENTS INDIVIDUALA AGED 2-19 YEARS EXCLUSIVE. MXD% 13.2 % 0.1-24.0 [facility] ([facility] NORMAL RANGES Age WBC RBC HGB HCT [...] HCT IS 5% LESS SOURCE FOR DATA: [email or web address] 1800 OPERATION MANUAL( AUTOMATED BLOOD COUNTS AND [...] DESIRABLE: <130 MG/DL <110 MG/DL BORDERLINE-HIGH RISK: 130- 159 MG/DL 110-129 MG/DL HIGH RISK: >160 MG/DL >130 MG/DL *CHILDREN AND ADOLESCENTS REPRESENTS INDIVIDUALA AGED 2-19 YEARS EXCLUSIVE. Lym% 30.5 % 10.0-58.5 [facility] NORMAL RANGES Age WBC RBC HGB HCT [...] HCT IS 5% LESS SOURCE FOR DATA: [employer] DYN 1800 OPERATION MANUAL( AUTOMATED BLOOD COUNTS AND [...] DESIRABLE: <130 MG/DL <110 MG/DL BORDERLINE-HIGH RISK: 130- 159 MG/DL 110-129 MG/DL HIGH RISK: >160 MG/DL >130 MG/DL *CHILDREN AND ADOLESCENTS REPRESENTS INDIVIDUALA AGED 2-19 YEARS EXCLUSIVE. Lym# 2.0 10E3/uL 0.6-4.1 [facility] ([facility] NORMAL RANGES Age WBC RBC HGB HCT [...] HCT IS 5% LESS SOURCE FOR DATA: [employer] 1800 OPERATION MANUAL( AUTOMATED BLOOD COUNTS AND [...] DESIRABLE: <130 MG/DL <110 MG/DL BORDERLINE-HIGH RISK: 130- 159 MG/DL 110-129 MG/DL HIGH RISK: >160 MG/DL >130 MG/DL *CHILDREN AND ADOLESCENTS REPRESENTS INDIVIDUALA AGED 2-19 YEARS EXCLUSIVE. Neut# 3.6 % 2.0-7.8 [facility] NORMAL RANGES Age WBC RBC HGB HCT [...] HCT IS 5% LESS SOURCE FOR DATA: [employer] 1800 OPERATION MANUAL( AUTOMATED BLOOD COUNTS AND [...] DESIRABLE: <130 MG/DL <110 MG/DL BORDERLINE-HIGH RISK: 130- 159 MG/DL 110-129 MG/DL HIGH RISK: >160 MG/DL >130 MG/DL *CHILDREN AND ADOLESCENTS REPRESENTS INDIVIDUALA AGED 2-19 YEARS EXCLUSIVE. MXD# 0.8 10E3/uL 0.0-1.8 [facility] ([facility] NORMAL RANGES Age WBC RBC HGB HCT [...] HCT IS 5% LESS SOURCE FOR DATA: [employer] 1800 OPERATION MANUAL( AUTOMATED BLOOD COUNTS AND [...] DESIRABLE: <130 MG/DL <110 MG/DL BORDERLINE-HIGH RISK: 130- 159 MG/DL 110-129 MG/DL HIGH RISK: >160 MG/DL >130 MG/DL *CHILDREN AND ADOLESCENTS REPRESENTS INDIVIDUALA AGED 2-19 YEARS EXCLUSIVE. MPV 8.8 fL 9.0-13.0 Below low normal [facility] ( [facility] NORMAL RANGES Age WBC RBC HGB HCT [...] HCT IS 5% LESS SOURCE FOR DATA: [employer] 1800 OPERATION MANUAL( AUTOMATED BLOOD COUNTS AND [...] DESIRABLE: <130 MG/DL <110 MG/DL BORDERLINE-HIGH RISK: 130- 159 MG/DL 110-129 MG/DL HIGH RISK: >160 MG/DL >130 MG/DL *CHILDREN AND ADOLESCENTS REPRESENTS INDIVIDUALA AGED 2-19 YEARS EXCLUSIVE. ID Date Data Source [id number] 04/22/2020 10:00:00 AM EDT [facility] Name Value Range Interpretation Code Description Data Rachel rce(s) Supporting Document(s) EGD-Colonoscopy [facility] TWSEHp4yXySXTvBgDJFtSteEZCxoVGneDHIeY1V8JCwpCn0OZIccfdZeXTLjCs4+YAAsFC6jwk8nZXEk gMy [file] 2j7JrD130GFqJzu5+PAFCTR8jiu8SyORokP+fernando/l/EtiYYilc0fik2x0gzj/hVMXJohHQOuuaA9cU2V ghgsga9hyC3b/+8f2ua6a/aSloDSi2TN82IV2dA3xKNyqYYIvpY5wrQ0hYxovOx3zy9ykhVQFL+TA5i6 Tm6I2tQlSL0RJqvaArsyib0oVWnpbWm24tvyB5nr62 5vwm/43k0mt6BT7D7nGbYS4tDNJaV5r1jGXoyUvVssYCFDxYzJamw8HZmAQwqB0cNYGhkR37YNJhwxjX a0gaZg1YWtvJYdplisKjIKVzsnaA/9X/GZpCfT7r0Eid66HgQZlqbLwU4hxGSnmID8qX4Bqd2/XckWPv y+WXmHkTHL1rlkouHLFookz3P8Lfpsj6XXNRK6CvI9 emViEuq8SDGwq52Umw+vIZ9rQSossh//NXwdmBTuDypD5d37MtwIcUHCn4XbAjWjyMDAnTb4phBtaCmv w06X/RDzPgBTk1QbCRS9YUbXT98qCe5UrRpgL1yVmGK/jesUTeHN9lkgVbgWCTVISe6UnJc4QwuSH7qh vhBBHhRp37r+r3AIfhH0ucdFbv9mbYTfMVoYFBR2lb Rs2901qDI51NZtLlUCUQzR9boVAC0BpVx3fkIZ085eRFpWh6qMyk9rppzAvYPKb7OUiMmYOH6vDGdO8u hoXJzeIlwZ6cFpi1ewZxhhQO2R8YFgiEnZdtLHkvbB+BBwjkRDSldptpozfMZttAiADJjZczwo+Kk06s 5mfrfs1Vxl7jD/WHQvdw996pM+JpkLx38dzjckELUe j0aCs2i+cSV+AgG4g5b+9YnpAyd8DaJ58D9ENyXa8+qA0GC6AphgjmoFjxcDIS1sUR9J5Zl9wyvgtBMj Fl99Z+eLGKI2DtTh7J1t7bpVNkFyGBXgNoTeMW3ra6hH2Qx0Tt0DYht0dGLgO7jD5uqzT+8datTmknde j+iY7GLQVU54iR74s5LFoCG+42XJG/P38/xcb4hoNw k3CpkacJRx048TvJK9kAlJZ2v/iF7UHJ/qrd6pcuPdy8JkCZK1tMxxaBqsxmZ9QgC3BgZyhBLBSU+Brand Marketing Intern [file] group work program director+4M20PPYB2uukE0E/b0h+dyLkOs3gmMoU06rebgJT8RDfj+b7Ls61cml3MV07YTjmdSa8vY5vWo+L [file] MD3nh3/fsUn9NkFolwlRaAll7T2SulYztu1UJWrjB9P4ycfQkReeV8Qm8ckZ5fOmH0/Yuriy+Mn1NoLqnZ 4KIOCbUlnQwJvSXTpX+E8gn1ZIa1YkWwsDJSFAHFn+Q2idSHJJo8QcvwnLLYgb/RCd+6WkFrs5iohQbH sPLortj8OxT9a60hbXmO9zaja7KMZeEcSP51Lxcm8Z Ep5yOAEhPdtG1vERft6KroD+5dy5194AYqmbOk11RhJkakWyH5IuX2d38cox82twhKoup7zP0uMFoXmS C02AGO5wDp3nhCsaiitP3NQl6aliAyEuYc805/09j3HKAqHmy6cfikxmZmybUd5a7pcKVo2vhpZKbxJC pA4kYa1yVgrXU54GRzERIAvwEr4TVGKIrq4k5iSmfF 3HJMGnz4qQ/EC75mcMVtEbcY0NOHLWCh52nyw+AVFU1hFKLdN7taLGyFA/jgLxuvIi7u1ON27X90KR+u U6h0Amqc0GZqyAyAI45729iJQa3pz7Ww9/oBdAye03lBYVF3ebg1K5WaDqItAsKWdWazHc877a6odUSE 7CtDwl3n8k34L21pBbNfgSuBMUgHQJNCswhi1+yacht builder [file] Ng4s/hydrodynamics professor+/Sfh7+or5Bw3/e64E3300UY9xy51aaEgCD6mlvSZFUALpqR9iM35BojucSly7U7ZbhAIQFN [file] TTm4ZstuwcZE5J2GylQpl4J/2WqDWKzl4Fja/robg5LhxIk5u8JqHk7y+rBjarOEIeC0Cgr8+human resources manager manufacturing+bCDi [file] GEcd3agkjD2gqt0J8O4w3z/WvKFf+virginie+VoykBW43Yzk22GhvojhbHxENFjDIHBCyyKpBzxlzPXA1xF6 z/k07sqcHiYckjIyztpsvUNpG0VWUT21k63qlbHXixpT2KSvevB8dyIDG1C2oZlasa3h2AUiijC1KmPN ZWvDfiSTmCFTMq130LlF3AuKF1FiePRFcc6bSvnoLN ktmXnkMBuj0FRc2405PvMil4HvvhZ58UQ78ylz430IhN1mfF/j78pv/ipOGgSw/JUAN C+PeRyL+kx3vY7K [file] INCIDENT ANALYST/oDXDeqIea/QjZ2y+PZvHy7mzcOVud5H5OZoZlSk [file] bVofTXEWuhdW1DsVaAW4td+Wq986ru92IrR6iDfaI3oH/Iuebcm9P9/zDJ35LXKiO/lhf+AUDIOVISUAL AIDS TECHNICIAN/xUJ1yPH [file] rectification printer/bobVnwEccnTj8J3ip20fFGamTMIpJGLhkuM99I/njPEKLr8TNcbJHerjCVlIChXZ+Zm2ecCIORRW [file] ZO/+KHOFq/h/gUlaJOeXAq2Aq6nm4aooemhupo [file] 4aUuGkkuf2odUHYemQVimKwJ88UrQhsX41qHs/S/dry plasterer helper [file] WcukCuFY7/FOTuO+vp business development/VEopMAIEYLMtN9DWP498goK [file] KrXoXGCjNbdaFCQe09A/O9YSoEblfTIBCkmJyeHWrhv0V3expT425+7urUP7vA4seHKEdHYVH3Ce/+AUDIOVISUAL AIDS TECHNICIAN [file] SSXGDSAkx+JWAFiPCeT2Bk+kDLMH3OTOWbzPVapfnm+HOPEsTEbsmpiKJiU5hsINEO6hDW0FOXKUF8TT HERmMjUFH5szFtkU4ZKT9ex9HzAG6Dg4GuqzA9xuHsBUlnFMJdLsc2QYhdGNGBPr== ID Date Data Source [id number] 04/19/2020 01:53:00 PM EDT [facility] Name Value Range Interpretation Code Description Data Rachel rce(s) Supporting Document(s) SARS coronavirus 2 RNA [facility] This lab was ordered by [facility] and reported by [facility]. ID Date Data Source [id number] 01/20/2020 11:30:00 AM EDT [facility] Name Value Range Interpretation Code Description Data Rachel rce(s) Supporting Document(s) Follow Up [facility] AMXRPo2rScCARwFeLFDhMujNFZptSUlnBVDoP5U3GGzpUt7AWPrzmbBqBZGnMh5+AEYkKQ5xbi8sNNVs gMy [file] vp business development/tpXmD0uwtuw0Q87JtAwIWw4HQ6kMwphzoc+lOXQ 71/aPh2wG+r3BsEyN70YTPHv5OZahJ/HyiGGqv1jaB8fLi/oDwnDObYUti9NQ3aVHaJNETfkEYzdBGjW 07ETTjkRylkeRpYYTcdHsn8x3PuHmhVzKPYCVhOWhf//mpe3yDWRVa9kY50Kn+6epa/p53Tn8Z8h58Tw /+id6I8+Z5ECdewtKNrlKWUr3tebHBjgi0qZ1UOlKN xM8pEoNV9ZPDEY+5v863yXOrUnK8tSB5/s6yJnZ/S/cjfEZBSM1ccXbvCxrdU1ABtcDxIHeKyFFLEEUu xp8QvwPUTjoEhM7gnrT8vCK4UAirhfzEa1xd/yS7axSYqwnWYs7doC6JBm621Gw9TZZyjotfPehiMWol AYBlpHq3G55B35+HeR1MpiwC6nuMbdkKQ//C5xZTGD aSBEMi+zl2sWawzOO0Wzkcn46M73aZBHbjpickb34PMag2yQxOEzlQP0MYEM1A6cb/AaZwCUQqxFJptl uKKQoa4TRw/JxEd/nS8Del/j8+ssRR4PAjvh7eZoRsgLSIo7STmTitMlyc8d/AjKMeg94dCXesJeF9cJ 2+BI3PoYSJEvoNCHGVKPDVWKPLWDNvmaKc8aOYlzLB [file] Clif+J/6fPm8gnU0YoU4VOgr2ji1MLYbirMe2lFtJLn+ MWdmwXyLV/hxp8DEty3vFDAJ4Gl5RTLXJbEj3nwIoQdSu2so/zAvhwAUG+no6pp6cI5ufbfdm2zH9hkZ Tt6uzgRX9RSgiSzBmI2OKG8KFmBbIvTe3MXOr4WQW9zO9cnYDsV3BCceB/+pTZjxR3idbItNmN//4wvw wKsONU14WWRCb32AzEKAA8K1sabkrSCOnVx6NLfk3U Dhnoc3HifSH6iJb7EWBsNGi6Jr4qaotycZvOvQ3uMXJna+NV2kUD5ECMX0mBNbtOdpATSpuJr5l3eFRu V+E44rmcucreU5JRl1NdxNKTcHFMTFoqX7BeJPkQrwZAGU5040/JydRtXPLxJcB6WymJ5tiKIXixrZVZ DSjoS1CGU0iuLWQzbqg0aF8hXqU3sWeOTlmh9pLA7M KaV8Y+p/qHEbpxx5uAjPLzdPHmmUzfTTZ1LyQeS8yswdpidYqO8sPOd+Ok8f6PQqZ91bip5lJ5Q9jT3+ aZ6DEcniEXjar/srIsGdFz3a15uorahh6PNLL11wNq3FKhHb6/52EmlZgBEgIK9nx3jzs2S7gW9jipkF 46F59ptiHXgFCjgNxwYY0o1o5tdse0YlMc4qIi9XsH xToI6Whp7+fSagx006ajyG/umjvlHk3jKmy8YHNAjOnhcqqDOpzv3m7NCTu5CnLxN71zar08b+u1ulL1 9SIOsyWfnI0AsH+h8IAvdAyU+Tv0LjmQDl3Py68SO3ktS+z+/OMhvw68a/c8d2oSPOwur+a/hTL5/BOARD WINDER [file] mw7DvmrJCu/2/ZGN2ZBNCg5MpIaoji+aMhEP+T [file] H05Li4utxR+bwmjJ4pYixsRkyhk1B0Wpi+Juan Carlos/LvtwW2pFvwIdrQ86eZ73dVh11K8g8MfOObrU8N5PO [file] mcjHfNQ1HVaBDsyauZLgwnZScmNB39rtgib0qlZPT2/services tech+da6zeGUvdl6B0v6+hRyH+hveBXJiaOfD9 /G00IZv8s/ekDTHNi0yFZ4WWzRtbc2jxF0jjmBPxL4J+FL4UaM75oryCV7pvO1RN3pkaKYoDeNjCK6Oy UISikc5WAzrGh8E9p+e1rc8S1Mh5FQ4klpYigIos1M YgdLUUqjcnUJ/qvUcwBfxYglZyqyqmdFrkAQ4FkkS3S4oOCChEXRpVHW2elPfSn5ss7D4aqZ+zSkzXUj 8ZAbIEXQkvQIK3+6BCfxjm109R0FxY4IuB7PbERkB3Mhx+BVW3N3QeWsUQMXMkUzQgT0EM9i8rypt9xc ZvMN8iiqavkLRy81ZN75KSebVmZ0MH7CJiBQ31ahSH lFDpTPVJsgl5pDa+59+3G/XRLl76ZMPjz9JpckJuH9GgAxTWO2ejPBSqbNr+ew3fNk2jCIuU+FSY+131 1RZcfPvzkOVwO9wEccQHG+8KPZJ5QpS9CD+0ll8TRz7962n50AfLuyFFkIpEHHxl96VB3EZQlAxWvM3u Y1/MkUkb5MgyJMdg1+hr3vssM9pSPYzIv3rHZIaXk0 npSpY7bltaWi04l6Pc0Nuea6ccs0hu9SpqHcyHXqON7GN4jdVSrItyrzQjDqkRvdxcMLFZqVEpg0OIu0 0psOFMI8in8qhOcMdAFpjB77pHIHNMcL6UUWYVPNDN0Jo8OmePSt9+fvWsEntuThEhegxezfNbP4X5P3 yN8exEqn/6TMmagDxmTvnd/T++RmqbKys4iJzqGcpb wQ3R0UKUjyuakGz95GEYy7VgDg5RvSrTsJSkCooOOPZMC8h1ce6Qw3rdBNnd4J0s4EWJUkaBcj55FNzW H9W+pyf5vo2cNJByTmkHdaQXOUMh+y1kbIzUiniMQ9W0SIkXg3NlmSKux8W8VDROEKMzmjr6ILobXg5g H/CRISTOBAL/ZbLCYfXeQZqiY2uuZaci19UEmTVkoIgE59ATZ [file] AUDIOVISUAL AIDS TECHNICIAN+IakHfrjKJSn0qnQJHeV7DZWjG0jpT4SsMGEuzzxety/+cxfWD9fhGxxmuwS8yRSjhGW1bUQJzKPyn fpvbsVbjBy9pElqf9oyEPkUKP4VkUtKi/EK+H1/ryq 8IuF01ZTys4zy3GJ50wkM9eZXRZHHUj+CEW5Coti5AJprFEfbbNeSxXB/WOtJoZs19/TPMnXwKjBvsps qZ8jFqUlsgiO7p7HWPdYMEGFs1N+R8xKh/oXOhfgHVUWpsxiYZjocm2kB69Bz8UzgQJp7doOsD8GiF5B V5Johw5BtLAn7tVazU3bacFcO9U6P3z+PCAfFS4sTa UKUSRPEDlNd8UKjl9VvkSywEX+uHqtrkT9rFcLoXwRRu6pJIz0BONyFUH7kgemT0Iy5qDILnxVrlOHZM lTelQ9eS6AGw/8qfCpFDqAna2XolM2tlrSlzZ81VCFF7Dg2tvWBUm1iVWKO0hFboj3glmn7td+dpr6kl 680AkptkVT5EG480xYQCtcjTOx7+h4LXYWhQ2EjhHO xBnVbSZ34GlS20st70w+Michael+gV+Auu4b/zx6OQ9gf/dYpugLxLw+IuSkwXm3XCz1x/3tlpOff73rJKhp +QjVobApfQxfdAUeCMUJWl93XFS2ebrWzgvZ5xzlbcaiutX2s8CoUG9JdIRrcjXEzTEhXu0tnzQvwvhQ GWG0ZN5Ot6HKSNlO0p8t00g+dRKL1STO7M0yGEZUsp TMWYZILjGoBLLTy/B3uR+1H+Kn2CwdsOOCxGjOnr+DN3Vf0NpUO2RGasUJcATFk3QRh4ZYCMRUdAhum2 kTsMPptzQB5lPdKpPwRVbO5wvNRl8Tg6OGtTgV7aKadCC/B14TQEuipW7qrYA8FRpWeY6y4Iy2w9y/wP oJqmLp6vKrUmWhOqzIxM6XbpxbwjzbD+ql63RzIbwv 36nywQ+3HEX0XK9bx2UT3ZmMt0dl2pC2JB/C6xdDkQr4zTb9MDzBSCFVaQcBfyuj9WDuiUCNb5MIUmwR svqbHY6My8X7Fwxa3c/kaGNxuwqwGhJ9bk9KpVUWBbumZU3BRcCuaiEuppkyd3/IpxcS46DAytMDTFrU FA7ta/uYBCORcf+DHHKEBjhB/vhI/dBJEI54TUZBlW [file] DvzvOQKcIuEA3Y6mDybV48KLghiTdxTuKjG+eUc54tuuTnctdol1TdWhyPpxv7TwQ7vYnh8T4BOp/molder labels [file] uAoVXadMCNOXPhfv0yAVBeGUMv83eynsOTQzGv0mP1oGdyrcOI4qXH43Q/KHxvFBw0QkwKC63HWB6/Mine Captain [file] plasterer helper/WHpKzlIPr9kIfMEzBS93sNI9U0VU+GgrCnKknq [file] 2t28bxfTrdRXBbY2eKdNdP91z1QUfSXmpKnZF2835iGgY88dkFwIzOKNTY060vw3akywjyl0gQoso+AUDIOVISUAL AIDS TECHNICIAN senior living+1Unk3AG5B9UzL/x3Y5FSjoBakqgr+9epTasAWy3KSS/hJhE7KVnsonOc+E81sK2iy8iM9WWUvcd+ [file] business development [file] Ks4fwCEpHw+EKiNlUhxX7FEkXbtP8I35WpaEqbI2/bLLF8o5mBXufUhAjfujPOf0z+Ry2DUj/4AaI+Literature Professor [file] Ys1gN9649k+vv3Rlqb9Bc14o/FNs7VGQ2N240Q6GMX td4yw3/gfBRw32L7/un95OFBWascEmV3h65xxT/PceRf1fj9Oq/qezH0v/LguA7iFMhebo/QCY+udq4R ZobyqzyqVlrmJlKpzbhHgeuIi5Zb0Bn8DzkJ1CaN6Ne9fM6xFgQ8l8T18wz5NT+gmtQc+Jpwc/gP2MZ6 3gymFBsqDKUGujQ+v3HDlSiq78IOTy+41ZQEfZO7Y6 mosX9LQuuWgwYbGI2t4uFC1n1dU7nwHlSmXx26/2xFZnHtX70NUJwnx8sENzglTV8G9EZLM+HCYmlZtb fZrmg5FY0RIfY6znqa922gHCQFkuupbgZ5a3mxQE/uVh03DA1ZzuOde8DglRtMsOt2d9UdZM2za0CERy +1asAdtI2WfEQ0DI9uzw4+oPe5xb+UT5Rj9RdHNJ1Y fh5nNMS7AK7CDTfQ5K8XhJ+HBOIUweNen60oiiuCeLqz3CMw2TCNIIB/npdwcp1zSbKW61xSU/hL6LD/ t83t/Dz5JryViYn8QBUo6++iWnXAkKPyslD+LEymKkJf86ptWkpwZn7HC+htNrZJoJPNmhs0lLYhi64y VMEiCxUKhYbCiX+JDisJ3cUAx5rNhCeXFyY1YVNlnG soiUEv6+2pjHBpTixDMDemLeO6BjwSY1pkeTPn1qZcSkBhbjzw45VtusRPVl1Rh6Jnn7feE1keqKxGjT Q/yrjZaienylKMBVZIkEdtIOwPJScF1qOly4vWOunAVWInAYOaKRwAqiKp/apyMubkA2HQAw2q4hZj0V 4njyMtOG2UikrqNaubuhE6P128xRZLnT28IElH1zND V1pLKQ2oNMq7kdZ4or9M7VCqCx6PgkbV7by9SdT9oYRwTpAsj9MMifLBLNeF40PJ7adbUtQmmqJyKUVr g8+iBrAWBtzQBfY4SfCVYNmrigBUwwD7DyiDfwkU7cgsxdg8KS0SjPa+Kd//mVpEPBoIJLH6lwSy1L/P v77oKSz18mzFJwCNcpk9qmAwcd/Juan Miguel/7Pq8er09Lt6 [file] /7PQ9gUyuAmJbCSPKfl7YOEEYtpvXqX7t6C/P7I1ahz1YZY5rWiYC+0BIyZJoLL0tOFTEsG4BYS94/Literature Professor [file] uUHHc+qkjwEYp7cGCMxvvHKhaA3N0MZsmpWaYp [file] HOtIpE4Tsgl4K/tafVzNdYN+1s6ki7K2E+8OMOhE+dza9C/dFYJLUWJSn0+discharge rn+hf9z9sNQ4yFq7OXJR 7OhWPMQ4jDHcnFOcm8vdeJLjac0haQ8VZgFcpscsVnNpW6KdTQS+m+sPR6WU+LCIVhuT7bMWsf00Jcq/ wi/VAgPXZLQsemBdL+wkxKGYsx0EHO7sStyk2+znsi xio09r18OfvJVwZHk9X6ss6qQC/AgWw5nd7hT2tutjCK1xI/usByh9WGsvfz971RDPCcvFHhJmeWyba7 JNxG6f0w/46zs+algzFQiPkEa4ofy5eV21rbe4jlZe07w303AiPNYcx5ruAX70/QAnAm2sQETWThGzx1 dTVaanmwBHyo11tSAp5WRfXO0NCn90e/nY6yYOKvVi Jo92ojIQUMZm8Tj8aOHv78KSaNpxOHWIGn5n0nxKN8AR1Vs5Ef25VV4r7pkLt8Jk/Dcfhn++RAdEbMB+ eSYukxYmOtM0Fb+Frc+TVp+R0S7/ijBRRkt7C+B/sravan+pJj4dlW3fN+8vdnJJZwWfYCvepGdGiTRn8dU [file] UlRU9G ID Date Data Source [id number] 10/10/2019 12:00:00 AM EDT [facility] Jenelle Boyd MD Patient Name: [id number] [facility] Date [place] : 1970[facility] [place] [id number] Date of Exam: 10/10/2019#: Fax: [phone] EXAM: MAMMO SCREENING WITH CADCLINICAL INFORMATION: Screening.Based on the personal and family history information your patient suppliedat the time of imaging, her lifetime risk of breast cancer estimated by theTyrer-Cuzick model is 9.0%. Given that this patient has less than 20% TCrisk score, no further medical management is currently recommended at thistime.Digital screening (2D) mammography was performed bilaterally in the CC andMLO projections. A dditionally, breast tomosynthesis (3D mammography) wasperformed bilaterally in the CC and MLO projections. Today's exam wascompared to the prior exam(s).By history, the patient has no complaints of a palpable breast abnormalityor other significant breast complaints.The patient states last clinical breast exam was in September of 2019.The breasts are unchanged in size and shape. There are no jason- soft tissuedensities or spiculated masses. There is no internal architecturaldistortion. There are no suspicious jason-calcific clusters. Skinthickening or nipple retraction is not present.The Volpara volumetric breast density category is B, there are scatteredareas of fibroglandular density.IMPRESSION:BI-RADS Category 1 - Negative Mammogram. Stable mammogram. There is noevidence of malignant alteration of the breasts. Followup examinationrecommended in one year.This mammogram was read with the assistance of [employer], an FDAapproved computer aided detection system for mammography.Negative x-ray reports should not delay surgical consultation if a dominantor clinically suspicious mass is present.Not all breast cancers can be identified by mammography. Therefore, werecommend that you continue to perform regular breast self-examination andphysical examination and then promptly contact your physician of anyconcerns or changes.Adenosis and dense breasts may obscure an underlying neoplasm.DANYA Monroe/Calin castellanos for referring GREG GARCIA to our office.Electronically Signed - TOBIAS PARK DO 10/13/19 14:11 Name Value Range Interpretation Code Description Data Rachel rce(s) Supporting Document(s) ID Date Data Source [id number] 06/30/2019 08:08:00 AM EST [facility] Patient Name: GREG Garcia : 1970 Sex: F Pt Unit #: [id number] Location:AMB.DERM Provider: Visit Date/Time: 06/30/19 Primary Insurance: BC/BS [employer] Secondary Insurance: Self Pay Intake Vital Signs 06/30/19 08:12 Current Weight 167 lb BP 102/68 Blood Pressure Location Lt brachial Position Sitting Pulse 67 Pulse Oximetry (%) 97 Oxygen Delivery Method room air Intake Visit Reasons: Office visit Is patient in pain?: No Allergies Sulfa (Sulfonamide Antibiotics) Allergy (Intermediate, Unverified 09/11/13 17:17) SWELLING TONGUE Medications alprazolam (Xanax) 0.25 mg PO PRN [Bisoprolol Fumarate (Zebeta) 5 mg PO DAILY] clindamycin-benzoyl peroxide 1.2 %(1 % base) -5 % 1 applic topical QDAY eflornithine 13.9% (Vaniqa) 1 applic topical BID famotidine 40 mg PO BID metronidazole 1% 1 applic topical QDAY sucralfate 1 GM PO BID Patient : No PFSH - Derm Medical History (Updated 06/30/19 @ 08:40 by Pearl Pretty NP) GERD (gastroesophageal reflux disease) PAC (premature atrial contraction) PVCs (premature ventricular contractions) Tachycardia Surgical History (Updated 01/07/19 @ 11:53 by [facility] [facility]) History of - surgery History of - surgery History of colonoscopy History of hysterectomy Status post tubal ligation Family History Mother No problems noted. Father No problems noted. Pertinent Past History Pertinent Past History Previous skin cancer: none Family history of nonmelanoma skin cancer: Yes (grandmother) Family history with melanoma: No Pertinent Social History: tanning bed use (currently, x 1 day a week ); negative for sunscreen use, tobacco use, sunburns, outdoor occupation, photoprotective clothing, outdoor leisure activities and other Dermatology HPI History of Present Illness Details:: New Patient presents to the dermatology clinic for Rosacea see below for details also c/o of Hirsutism x years, on face chin and side of face. Shaves daily. Symptomatic today. patient noted that [employer] has tested for hormone level and for PCOS per patient labs came back WNL Current Symptoms Chief Complaint:: rosacea Location: face Duration: years Symptoms: other (red ) Timing of symptoms: worse in winter (painful ) Current treatment: Bare mineral scrub wash, OTC neutragena moisture , OTC bare mineral, Make up IT Treatment response: no change Skin care goals for today' visit: To help with rosacea and Hirutism Dermatology ROS Constituitional Reports system reviewed and no additional complaints, except as documented Psych Reports system reviewed and no additional complaints, except as documented Dermatology Exam Constitutional General appearance: comfortable Orientation Orientation: alert and oriented x 3 Skin Skin exam performed including: scalp, face, eyelids and nose Adult Head Front + Back: 1. scattered telangiectasia with mild erythema c/w rosacea 2. darkened hair follicles with mild inflammation Psych Appearance: grossly normal Mental Status: mental status grossly normal Speech and Movement: speech and movement normal Mood: congruent mood Affect: normal affect Attitude: cooperative Thought Process: normal Thought Content: normal Insight: insight good Judgment: judgment good Assessment Plan Assessment Plan (1) Rosacea: Current Visit: Yes Status: Acute Code(s): L71.9 - Rosacea, unspecified SNOMED Code(s): 735760451 Category: Medical Plan - Pearl Pretty NP: Discussed diagnose and treatment options. Start Metrogel daily. Discussed laser treatment and OTC brimonidine for telangiectasias. Call with problems. Medications: New: metronidazole 1% apply to face daily 1 applic topical QDAY 60 grams 2RF (2) Folliculitis: Current Visit: Yes Status: Acute Code(s): L73.9 - Follicular disorder, unspecified SNOMED Code(s): 83204681 Category: Medical Medications: New: clindamycin-benzoyl peroxide 1.2 %(1 % base) -5 % apply to face daily. 1 applic topical QDAY 45 grams 1RF (3) Hirsutism: Current Visit: Yes Status: Acute Code(s): L68.0 - Hirsutism SNOMED Code(s): 530747186 Category: Medical Plan - Pearl Pretty NP: Was worked up by PCP for hormonal causes_none identified. Discussed treatment via laser. Medications: New: eflornithine 13.9% (Vaniqa) space doses >= 8 hrs apart and at least 5 min after hair removal; avoid water for 4hr after any dose 1 applic topical BID 45 grams 1RF Orders Follow Up: 3 Months (rosacea) Electronically Signed By: <Electronically signed by Pearl Pretty NP> Date/Time Signed: 06/30/19 0844 Name Value Range Interpretation Code Description Data Rachel rce(s) Supporting Document(s) Procedure Vital Signs ID Date Data Source UNK Name Value Range Interpretation Code Description Data Source(s) Body mass index (BMI) [Ratio] 32.0 kg/m2 32.0 k g/m2 [facility] ([facility]) Body height 61.5 [in_i] 61.5 [in_i] [facility] ([facility]) 5'1.50" Body weight 172.00 [lb_av] 172.00 [lb_av] [facility] T ([facility], [facility]) Body temperature 98.2 [degF] 98.2 [degF] [facility] Oxygen saturation in Arterial blood by Pulse oximetry 97 % 97 % [facility] ([facility], [facility]) Respiratory rate 12 /min 12 /min [facility] ( [facility]) Heart rate 76 /min 76 /min [facility] ([facility]) Diastolic blood pressure 76 mm[Hg] 76 mm[Hg[facility] Systolic blood pressure 111 mm[Hg] 111 mm[Hg] [facility] ([facility], [facility]) Oxygen saturation in Arterial blood by Pulse oximetry 97 % 97 % [facility] ([facility] Body mass index (BMI) [Ratio] 30.6 kg/m2 30.6 k g/m2 [facility] ([facility] [place] body weight 120 [lb_av] 120 [lb_av] [facility] T ([facility] Body weight 178.00 [lb_av] 178.00 [lb_av] [facility] ([facility] Body height 64 [in_i] 64 [in_i] [facility] ([facility] 5'4" Respiratory rate 16 /min 16 /min [facility] ( [facility] Heart rate 82 /min 82 /min [facility] ([facility] Body temperature 97.2 [degF] 97.2 [degF] [facility] ([facility] Diastolic blood pressure 72 mm[Hg] 72 mm[Hg] [facility] ([facility] Systolic blood pressure 104 mm[Hg] 104 mm[Hg] [facility] ([facility] Oxygen saturation in Arterial blood by Pulse oximetry 98 % 98 % [facility] ([facility] Body mass index (BMI) [Ratio] 29.5 kg/m2 29.5 k g/m2 [facility] ([facility] [place] body weight 120 [lb_av] 120 [lb_av] [facility] ([facility] Body weight 172.00 [lb_av] 172.00 [lb_av] [facility] ([facility] Body height 64 [in_i] 64 [in_i] [facility] ([facility] 5'4" Respiratory rate 16 /min 16 /min [facility] ( [facility] Heart rate 74 /min 74 /min [facility] ([facility] Body temperature 98.3 [degF] 98.3 [degF] [facility] ([facility] Diastolic blood pressure 64 mm[Hg] 64 mm[Hg] [facility] ([facility] Systolic blood pressure 98 mm[Hg] 98 mm[Hg] [facility] ([facility] Oxygen saturation in Arterial blood by Pulse oximetry 98 % 98 % [facility] ([facility] Body mass index (BMI) [Ratio] 29.3 kg/m2 29.3 k g/m2 [facility] ([facility] Body weight 171.00 [lb_av] 171.00 [lb_av] [facility] T ([facility] Body height 64 [in_i] 64 [in_i] [facility] ([facility] 5'4" Respiratory rate 16 /min 16 /min [facility] ( [facility] Heart rate 72 /min 72 /min [facility] ([facility] Body temperature 99.3 [degF] 99.3 [degF] [facility] ([facility] Diastolic blood pressure 72 mm[Hg] 72 mm[Hg] [facility] ([facility] Systolic blood pressure 102 mm[Hg] 102 mm[Hg] [facility] ([facility] Body surface area 1.80 m2 1.80 m2 [facility] ([facility] Body mass index (BMI) [Ratio] 29.8 kg/m2 29.8 k g/m2 [facility] ([facility]) Body weight 168.00 [lb_av] 168.00 [lb_av] [facility] T ([facility]) Body height 63 [in_i] 63 [in_i] [facility] ([facility] 5'3" Diastolic blood pressure 74 mm[Hg] 74 mm[Hg] [facility] ([facility]) Systolic blood pressure 132 mm[Hg] 132 mm[Hg] [facility] ([facility])
[2020-08-13] MEDS ORDERED: ALBU8.5H (12:42)
[2020-08-13] MEDS ORDERED: AMOX875T (12:42)
--- OUTSIDE RECORDS SUMMARY | 2020-08-13 13:16 | CCD ---
Author Author [facility] Organization [facility] Address Unknown Phone Unavailable Care Team Providers Care Dialysis Patient Care Technician Name Role Phone NILAM Pretty NP Unavailable [...] (SURAJ), Daphne BURTON MD Unavailable Unavailab le PAUAL (SURAJ), Daphne BURTON MD Unavailable Unavailab le [...] NG Unavailable Unavailab le PAULA (SURAJ), Daphne BURTON MD Unavailable Unavailab le LETTIERE, A SON PA Unavailable Unavailable LETTIERE, A SON PA Unavailable Unavailable LETTIERE, A SON PA Unavailable Unavailable LETTIERE, A SON PA Unavailable Unavailable LETTIERE, A SON PA Unavailable Unavailable LETTIERE, A SON PA Unavailable Unavailable LETTIERE, A SON PA Unavailable Unavailable LETTIERE, A SNO PA Unavailable Unavailable LETTIERE, A SON PA [...] is protected by Article 27-F of the [facility] Public Health law. If you continue you may have access to information: Regarding HIV / AIDS; Provided by facilities licensed or operated by the [facility] Office of Mental Health; or Provided by the [facility] Office for People With Developmental Disabilities. If such information is present, then the following [facility] mandated warning applies: This information has been [...] law may result in a fine or alf sentence or both. A general authorization for the release of medical or other information is NOT sufficient authorization for further disc losure. 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) Unknown Unknown Problem [facility] ([facility], [facility]) pgf Encounters Encounter Providers Location Date Indications Data Source(s ) Outpatient Attender: SON coates 08/03/2020 10:45:00 AM EST [facility] ([facility], [facility]) Outpatient Attender: Son BERG [facility] 09/2019 02:15:00 PM EST [facility] ([facility] Attender: MICHEAL MITCHELL (MITCHELL) MDReferrer: Daphne BERG 01/20/2020 08:20:07 PM EDT [facility] Attender: MICHEAL MITCHELL (MITCHELL) MDReferrer: Daphne BERG 01/20/2020 08:20:07 PM EDT [facility] Attender: MICHEAL TURCIOS) MDReferrer: Daphne BERG 01/15/2020 08:20:07 PM EDT [facility] Outpatient Attender: Son BERG [facility] 01:15:00 PM EDT [facility] ([facility] Outpatient Referrer: JENELLE BOYD MD 01/02/2020 05:20:00 AM EDT [facility] Attender: MICHEAL TURCIOS) MDReferrer: Daphne BERG 11/21/2019 08:20:05 PM EDT [facility] Outpatient Referrer: JENELLE BOYD MD 10/10/2019 04:21:00 PM EDT [facility] Outpatient Referrer: JENELLE BOYD MD 10/10/2019 04:05:00 PM EDT [facility] Outpatient Attender: Son BERG [facility] 03:15:00 PM EDT MED[facility] ([facility] Outpatient Referrer: JENELLE BOYD MD 09/19/2019 11:04:00 AM EST [facility] Outpatient Referrer: JENELLE BOYD MD 09/19/2019 11:01:00 AM EST [facility] Outpatient Attender: Pearl Pretty 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 1 08/31/2018 08:04:00 AM EST - 06/30/2019 08:43:00 AM EST [facility] Medications Medication Brand Name Start Date Product Form Dose Route Admi nistrative Instructions Pharmacy Instructions Status Indications Reaction Description Data Source(s) 137 mcg (0.1 %) 08/03/2020 12:00:00 AM EST aerosol,spray 30 INSTILL 2 SPRAYS IN EACH NOSTRIL ONCE DAILY INSTILL 2 SPRAYS IN EACH NOSTRIL ONCE DAILY SOLD: 08/03/2020 [facility] 875 mg 08/03/2020 12:00:00 AM EST tablet 20 TAKE ONE TABLET BY MOUTH EVERY 12 HOURS FOR 10 DAYS TAKE ONE TABLET BY MOUTH EVERY 12 HOURS FOR 10 DAYS SO LD: 08/03/2020 [facility] Amoxicillin 875 MG Oral Tablet Amoxicillin 08/03/2020 12:00:00 AM EST active MED[facility] ([facility], [facility]) Azelastine HCL (Nasal) Azelastine HCL (Nasal) 08/03/2020 12:00:[address] active [facility] ([facility]) Alprazolam 0.25 MG Oral Tablet ALPRAZOLAM 07/27/2020 [...] 4 TO 6 HOURS NEEDED SOLD: 04/24/2020 [facility] Alprazolam 0.25 MG Oral Tablet ALPRAZOLAM [...] 12:00 :00 AM EDT ORAL completed [facility] ([facility] Ciprofloxacin 500 MG Oral Tablet Ciprofloxacin HCL 01/09/2020 12:00 :00 AM EDT ORAL completed [facility] ([facility] Alprazolam 0.25 MG Oral Tablet [...] Peroxide 10/16/2019 12:00:00 AM EDT active [facility] ([facility] Bisoprolol Fumarate 5 MG Oral Tablet Bisoprolol Fumarate 08/2019 12:00:00 AM EDT ORAL active [facility] ([facility] Metronidazole 0.0075 MG/MG Topical Gel Metronidazole 0 12:00:00 AM EDT completed [facility] ([facility] 145 mcg 10/13/2019 12:00:00 AM [...] Dipropionate 10/08/2019 12:00:00 AM EDT active [facility] ([facility] Alprazolam 0.25 MG Oral Tablet [...] TABLET BY MOUTH ONCE DAILY DIRECTED BY FRINGE WEAVER TAKE 1/2 - 1 TABLET BY MOUTH ONCE DAILY DIRECTED BY FRINGE WEAVER SOLD: 07/12/2019 [facility] 5 mg 05/30/2019 12:00:00 AM EST tablet 45 TAKE 1/2 - 1 TABLET BY MOUTH ONCE DAILY DIRECTED BY FRINGE WEAVER TAKE 1/2 - 1 TABLET BY MOUTH ONCE DAILY DIRECTED BY FRINGE WEAVER SOLD: 2019 [facility] 5 mg 05/30/2019 12:00:00 AM EST tablet 45 TAKE 1/2 - 1 TABLET BY MOUTH ONCE DAILY DIRECTED BY FRINGE WEAVER TAKE 1/2 - 1 TABLET BY MOUTH ONCE DAILY DIRECTED BY FRINGE WEAVER SOLD: 12/23/2019 [facility] 0.15 % (205.5 [...] type / Coverage type Policy ID Covered constitution party ID Covered constitution party's relationship to jimenez Policy Jimenez Plan Information [facility] FEDERAL EMPLOYEE PROGRAM [id number] SP [id number] [place] [id number] [facility] COMMUNITY PLAN [id number] 0 [id number] [place]AT[place] FEDERAL B [id number] S [id number] EXCELLUS BCBS [id number] Mya [id number] EXCELLUS C [id number] Self [id number] EXCELLUS C [id number] Self [id number] [facility] FEDERAL EMPLOYEE PROGRAM [id number] SP [id number] BS Fep Commercial [id number] Self [id number] BS Federal Plan Commercial [id number] Self [id number] BS Federal Plan Commercial [id number] Self [id number] BLUE CARD C [id number] Self [id number] MEDICAID M [id number] Self [id number] BLUE CARD C [id number] Self [id number] [facility] I [id number] Self [id number] TRAVELERS [place] W [id number] Empl [id number] BS Federal Plan Commercial [id number] Self R [id number] [place] [employer] [place] CC# 002 [id number] CC# 002 CB [id number] H [facility] COMMUNITY PLAN [facility] [id number] SP [id number] EXCELLUS BCBS FEDERAL [id number] SP [id number] MEDICAID [id number] SP [id number] EXCELLUS BCBS FEDERAL [id number] SP [id number] BCBS Federal Plan Commercial [id number] Self [id number] SELECTIVE INS WORKER COMP [id number] SP [id number] [facility] Health Maintenance Organization (HMO) Self SELECTIVE INS [id number] SP [id number] O [id number] S [id number] OTHER WORKERS COMPENSATION [id number] SP [id number] [facility] COMMUNITY PLAN MEDICAID [id number] 0 [id number] [facility] COMMUNITY PLAN MCDHMO [id number] SP [id number] TRAVELERS WORKER COMP [id number] SP [id number] MEDFOCUS S [id number] S [id number] MEDFOCUS P [id number] S [id number] MEDFOCUS P [id number] S [id number] TRAVELERS WORKER COMP S [id number] S [id number] EXCELLUS I [id number] Self [id number] EXCELLUS BCBS P [id number] S [id number] TRAVELERS WORKER COMP [id number] SP [id number] BLUE CROSS [place]RE[place] PLAN [id number] SP [id number] MEDFOCUS P [id number] S [id number] HMO BLUE [id number] SP [id number] TRAVELERS WORKER COMP P [id number] S [id number] Problems, Conditions, and Diagnoses Code Display Name Description Problem Type Effective Dates Data Source(s) 74064626 Hiatal hernia Hiatal hernia Problem 05/12/2020 12:00:00 AM EDT [facility] ([facility] [id number] Asthma Asthma Problem 10/08/2019 12:00:00 AM ED T [facility] ([facility] Results ID Date Data Source [id number] 08/04/2020 11:05:00 AM EST [facility] Name Value Range Interpretation Code Description Data Rachel rce(s) Supporting Document(s) SARS coronavirus 2 RNA Detected [facility] This lab was ordered by [facility] and reported by [facility]. ID Date Data Source [id number] 08/04/2020 11:05:00 AM EST [facility] ([facility] Name Value Range Interpretation Code Description Data Rachel rce(s) Supporting Document(s) Laboratory test finding (navigational concept) Laboratory test result MED[facility] ([facility] This nucleic acid amplification test was developed and its performance characteristics determined by [facility]. Nucleic acid amplification tests include RT- PCR [...] detected) result in this assay. Performed at: [facility] [employer] [address] [place], [place] [id number] Dry Cleaning Checker: Deidre Yoo PhD, Phone: [phone] Detected ID Date Data Source [id number] 08/03/2020 12:00:00 AM EST [facility] Name Value Range Interpretation Code Description Data Rachel rce(s) Supporting Document(s) SARS coronavirus 2 Ag Negative [facility] This lab was ordered by [facility] and reported by [facility]. ID Date Data Source [id number] 05/26/2020 08:57:00 AM EST [facility] ([facility] Name Value Range Interpretation Code Description Data Rachel rce(s) Supporting Document(s) Thyrotropin [Units/volume] in Serum or Plasma 1.200 ulU/mL 0.60-4.8 [facility] ([facility] ID Date Data Source [id number] 05/26/2020 08:56:00 AM EST [facility] ([facility] Name Value Range Interpretation Code Description Data Rachel rce(s) Supporting Document(s) Trig 57 mg/dL 40-200 [facility] ([facility] NORMAL RANGES Age WBC RBC HGB HCT [...] HCT IS 5% LESS SOURCE FOR DATA: Penxy 1800 OPERATION MANUAL( AUTOMATED BLOOD COUNTS AND [...] HCT IS 5% LESS SOURCE FOR DATA: Penxy 1800 OPERATION MANUAL( AUTOMATED BLOOD COUNTS AND [...] HCT IS 5% LESS SOURCE FOR DATA: Penxy 1800 OPERATION MANUAL( AUTOMATED BLOOD COUNTS AND [...] 2-19 YEARS EXCLUSIVE. Cho/HDL Ratio 3.1 CALC [facility] ([facility] NORMAL RANGES Age WBC RBC HGB [...] HCT IS 5% LESS SOURCE FOR DATA: Penxy 1800 OPERATION MANUAL( AUTOMATED BLOOD COUNTS AND [...] 2-19 YEARS EXCLUSIVE. ID Date Data Source [id number] 05/26/2020 08:56:00 AM EST [facility] ([facility] Name Value Range Interpretation Code Description Data Rachel rce(s) Supporting Document(s) Glu 95 mg/dL 70-110 [facility] NORMAL RANGES Age WBC [...] HCT IS 5% LESS SOURCE FOR DATA: Penxy 1800 OPERATION MANUAL( AUTOMATED BLOOD COUNTS AND [...] 2-19 YEARS EXCLUSIVE. BUN/Creatinine Ratio 16.8 [facility]C [facility] NORMAL RANGES Age WBC [...] HCT IS 5% LESS SOURCE FOR DATA: Penxy 1800 OPERATION MANUAL( AUTOMATED BLOOD COUNTS AND [...] 2-19 YEARS EXCLUSIVE. BUN 16 mg/dL 8-23 [facility] NORMAL RANGES [...] HCT IS 5% LESS SOURCE FOR DATA: Penxy 1800 OPERATION MANUAL( AUTOMATED BLOOD COUNTS AND [...] HCT IS 5% LESS SOURCE FOR DATA: Penxy 1800 OPERATION MANUAL( AUTOMATED BLOOD COUNTS AND [...] 2-19 YEARS EXCLUSIVE. CL 101.5 mmol/L 98.0-107.0 [facility] ([facility] NORMAL RANGES Age WBC RBC HGB [...] HCT IS 5% LESS SOURCE FOR DATA: Penxy 1800 OPERATION MANUAL( AUTOMATED BLOOD COUNTS AND [...] HCT IS 5% LESS SOURCE FOR DATA: Penxy 1800 OPERATION MANUAL( AUTOMATED BLOOD COUNTS AND [...] 2-19 YEARS EXCLUSIVE. K 4.5 mmol/L 3.5-5.1 [facility] ([facility] NORMAL RANGES Age WBC RBC [...] HCT IS 5% LESS SOURCE FOR DATA: Penxy 1800 OPERATION MANUAL( AUTOMATED BLOOD COUNTS AND [...] 2-19 YEARS EXCLUSIVE. Co2 25.7 mmol/L 22.0-29.0 [facility] NORMAL RANGES Age WBC RBC [...] HCT IS 5% LESS SOURCE FOR DATA: Penxy 1800 OPERATION MANUAL( AUTOMATED BLOOD COUNTS AND [...] HCT IS 5% LESS SOURCE FOR DATA: Penxy 1800 OPERATION MANUAL( AUTOMATED BLOOD COUNTS AND [...] 2-19 YEARS EXCLUSIVE. TP 7.0 g/dL 6.6-8.7 [facility] NORMAL RANGES Age WBC [...] HCT IS 5% LESS SOURCE FOR DATA: Penxy 1800 OPERATION MANUAL( AUTOMATED BLOOD COUNTS AND [...] 2-19 YEARS EXCLUSIVE. Alb 4.2 g/dL 3.4-4.8 [facility] NORMAL RANGES [...] HCT IS 5% LESS SOURCE FOR DATA: Penxy 1800 OPERATION MANUAL( AUTOMATED BLOOD COUNTS AND [...] HCT IS 5% LESS SOURCE FOR DATA: Penxy 1800 OPERATION MANUAL( AUTOMATED BLOOD COUNTS AND [...] HCT IS 5% LESS SOURCE FOR DATA: Penxy 1800 OPERATION MANUAL( AUTOMATED BLOOD COUNTS AND [...] 2-19 YEARS EXCLUSIVE. Alp 81.9 U/L 35-129 [facility] NORMAL RANGES [...] HCT IS 5% LESS SOURCE FOR DATA: Penxy 1800 OPERATION MANUAL( AUTOMATED BLOOD COUNTS AND [...] HCT IS 5% LESS SOURCE FOR DATA: Penxy 1800 OPERATION MANUAL( AUTOMATED BLOOD COUNTS AND [...] YEARS EXCLUSIVE. Ast (Sgot) 16 U/L 0-40 [facility] NORMAL RANGES Age WBC RBC [...] HCT IS 5% LESS SOURCE FOR DATA: Penxy 1800 OPERATION MANUAL( AUTOMATED BLOOD COUNTS AND [...] YEARS EXCLUSIVE. Tbili 0.50 mg/dL 0.0-1.2 MEDENT ([facility] NORMAL RANGES Age [...] HCT IS 5% LESS SOURCE FOR DATA: Penxy 1800 OPERATION MANUAL( AUTOMATED BLOOD COUNTS AND [...] 2-19 YEARS EXCLUSIVE. Anion Gap 14 mmol/L [facility] NORMAL RANGES [...] HCT IS 5% LESS SOURCE FOR DATA: Penxy 1800 OPERATION MANUAL( AUTOMATED BLOOD COUNTS AND [...] INDIVIDUALA AGED 2-19 YEARS EXCLUSIVE. eGFR Non-Afr. Guatemalan 75 # [facility] ([facility] [...] HCT IS 5% LESS SOURCE FOR DATA: Penxy 1800 OPERATION MANUAL( AUTOMATED BLOOD COUNTS AND [...] HCT IS 5% LESS SOURCE FOR DATA: Penxy 1800 OPERATION MANUAL( AUTOMATED BLOOD COUNTS AND [...] 2-19 YEARS EXCLUSIVE. ID Date Data Source [id number] 05/26/2020 08:56:00 AM EST [facility] ([facility] Name Value Range Interpretation Code Description Data Rachel rce(s) Supporting Document(s) RBC 4.41 10E6/uL 11.02-6 [facility] ([facility] NORMAL [...] HCT IS 5% LESS SOURCE FOR DATA: Penxy 1800 OPERATION MANUAL( AUTOMATED BLOOD COUNTS AND [...] 2-19 YEARS EXCLUSIVE. WBC 6.4 10E3/uL 4.1-10.9 [facility] ([facility] NORMAL RANGES Age WBC RBC [...] HCT IS 5% LESS SOURCE FOR DATA: Penxy 1800 OPERATION MANUAL( AUTOMATED BLOOD COUNTS AND [...] YEARS EXCLUSIVE. HGB 13.5 g/dL 12.0-18.0 [place] ([facility] NORMAL RANGES Age [...] HCT IS 5% LESS SOURCE FOR DATA: Penxy 1800 OPERATION MANUAL( AUTOMATED BLOOD COUNTS AND [...] 2-19 YEARS EXCLUSIVE. HCT 39.8 % 37.0-51.0 [facility] ([facility] NORMAL RANGES [...] HCT IS 5% LESS SOURCE FOR DATA: Penxy 1800 OPERATION MANUAL( AUTOMATED BLOOD COUNTS AND [...] HCT IS 5% LESS SOURCE FOR DATA: Penxy 1800 OPERATION MANUAL( AUTOMATED BLOOD COUNTS AND [...] 2-19 YEARS EXCLUSIVE. MCH 30.6 pg 26.0-32.0 [facility] ([facility] NORMAL RANGES Age WBC [...] HCT IS 5% LESS SOURCE FOR DATA: Penxy 1800 OPERATION MANUAL( AUTOMATED BLOOD COUNTS AND [...] 2-19 YEARS EXCLUSIVE. MCHC 33.9 g/dL 31.0-36.0 [facility] NORMAL RANGES [...] HCT IS 5% LESS SOURCE FOR DATA: Penxy 1800 OPERATION MANUAL( AUTOMATED BLOOD COUNTS AND [...] YEARS EXCLUSIVE. PLT 282 10E3/uL 140-440 [facility] ([facility] NORMAL RANGES Age WBC RBC [...] HCT IS 5% LESS SOURCE FOR DATA: Penxy 1800 OPERATION MANUAL( AUTOMATED BLOOD COUNTS AND [...] 2-19 YEARS EXCLUSIVE. RDW-CV 13.3 % 11.5-14.5 [facility] ([facility] NORMAL RANGES Age [...] HCT IS 5% LESS SOURCE FOR DATA: Penxy 1800 OPERATION MANUAL( AUTOMATED BLOOD COUNTS AND [...] 2-19 YEARS EXCLUSIVE. Neut% 56.3 % 37.0-92.0 [facility] NORMAL RANGES [...] HCT IS 5% LESS SOURCE FOR DATA: Penxy 1800 OPERATION MANUAL( AUTOMATED BLOOD COUNTS AND [...] HCT IS 5% LESS SOURCE FOR DATA: Penxy 1800 OPERATION MANUAL( AUTOMATED BLOOD COUNTS AND [...] 2-19 YEARS EXCLUSIVE. Lym% 30.5 % 10.0-58.5 [facility] NORMAL RANGES [...] HCT IS 5% LESS SOURCE FOR DATA: Playroom DYN 1800 OPERATION MANUAL( AUTOMATED BLOOD COUNTS [...] 2-19 YEARS EXCLUSIVE. Lym# 2.0 10E3/uL 0.6-4.1 [facility] NORMAL RANGES Age WBC RBC [...] HCT IS 5% LESS SOURCE FOR DATA: Penxy 1800 OPERATION MANUAL( AUTOMATED BLOOD COUNTS AND [...] 2-19 YEARS EXCLUSIVE. Neut# 3.6 % 2.0-7.8 [facility] NORMAL RANGES [...] HCT IS 5% LESS SOURCE FOR DATA: Penxy 1800 OPERATION MANUAL( AUTOMATED BLOOD COUNTS AND [...] 2-19 YEARS EXCLUSIVE. MXD# 0.8 10E3/uL 0.0-1.8 [facility] NORMAL RANGES Age WBC RBC [...] HCT IS 5% LESS SOURCE FOR DATA: Penxy 1800 OPERATION MANUAL( AUTOMATED BLOOD COUNTS AND [...] HCT IS 5% LESS SOURCE FOR DATA: Penxy 1800 OPERATION MANUAL( AUTOMATED BLOOD COUNTS AND [...] 2-19 YEARS EXCLUSIVE. ID Date Data Source [id number] 04/22/2020 10:00:00 AM EDT [facility] Name Value Range Interpretation Code Description Data Rachel rce(s) Supporting Document(s) EGD-Colonoscopy [facility] BGSSUf7jTiJHZsXlDRVqRrtITJejIVxaWWAsU6H9PSqyEp2KKGyqapKpBZAeMn3+BKRkND3imn1bKJYy gMy [file] 5s8TgM224ISbDed4+EQFCTO4nxn8BmIMlvV+fernando/l/GwhNUpyi5pvq6r5oyb/tDYAHuvYYLeqzH3zE0Z gvxgyq9rpR5q/+5d1qv0t/aCgrISf7FM29BL0lY8gTCbiOOLlgK9rvB5oAsoeMj2xa2cguKLRF+TA5i6 Zo8D1gLxDQ1VKxczGzcsfr2aYNifvSb68squP1ii82 5vwm/69d7bf1ZF8B6fAyUQ3jSGUuG1j2tBDzpMtPccVSCMjChXoya1KCvVNbsW6fTDBjbX32BIQxptfO k0kmNl0YRodMPowoslPnFAVanzyY/9X/NLdTxQ3b0Dzo58WlATmakPeU7fcFEaiBQ3oO9Vfm3/XckWPv y+IEfPoONQ5xpxncERLsbvq0Q2Qlygh9WWOOT2FdO5 ohIzFun0RAVom40Acl+bNN5yYNewje//ITjjaHNrOgtX5g48DijBfMMQb5PdWjXhiKBDnKx5vtFryEbk w06X/SCyMhXRv2IeHPE0QJpWE57cXd6GhWuoT0cOnET/uxmETkWT8iezEerWKAHVBc4YfIh8VdzFI5tk tyENJjYk44s+l0XQcdH8srpUur0kqIYtHAcDWTV0hz Bj9126oBT64ZFqRcMJYCbC0zqHSI3YtTk0xfIR834sFXjOk5oXjb5giurYaCBMb1UTrQiADG4lKKyG7r xwIYiaXcuU2yRwo5izOohpQA8W4KYslIvLklVOejeK+BBwjkRDSldptpozfMZttAiADJjZczwo+Kk06s 5tdqtb2Gns6uP/TFKavr201cX+DvuAb23hezibVLQm e1pCh5z+cSV+SxL7s0z+3VdePrs1PtE07W9CKzDi0+zQ8KN7KthqerfLqynCTD7iCA7A1Le4vykrtVFc Fl99Z+gVZQA8HbQb3S1p2egYKtZySCZmOrHlSB3op4eT5Ox7Af7RLps4aVVrV1zB2aaiD+8datTmknde j+vG7SDJLA01dL63f4YOoQV+42XJG/P38/mga1grMs o6ZmrnmCPl054MeSD3gOmOG8q/iF7UHJ/mpe7gfsMgy8BvQZT4zFtvyRdklqM6WxR3BrNxjXUWSR+Ring Facer [file] off track betting manager+6Z66WNKS5broA2O/b0h+pfNgSs4moTgO34gbqvQT5AOvc+z4Sb43akk3EL70QOuatHh0hM1pVf+L [file] MD3nh3/bmPi1PiOiluuDrSmi1T0BkeSaig7PFHudX2E5vpiMhCfoN7Gr1ieU2kDqS9/Yuriy+Ay2KcFjuQ 4KIOCbUlnQwJvSXTpX+O3ap6WSd9RdKoqDHAYZYAi+V0lsQLVVa0JmcvjJTMin/RCd+1FsYcn7ascEbS vWYucnc3ZwB7b66ahWtK1auak0CMWqFlUA92Mooj7M Kz8nYBQbAjaF4fHImb5UtoA+4ao3412MMrtiRn99EcEnhdOfQ4WlT2l33bxl79eooPlfl9kR2aRNjPgJ C50GER7qMb2ohRlkymtR8GNf0ejfNwDnZw486/79z0GNJcXce3qzbqriNmhnXv4f5hhRHv8knlKEboHI vK7gBc0tMpmSY11YJgZBXGrdEi3HKKPXnw9d6jCssR 0JWOHif2aC/ZG02unODpCdeJ1FEWIHWw62cjr+XZHK4wYEDaP0lfHCaGF/keNowlQd8m3VL48P75KW+u N2x6Dnem9NXlwLtWZ89206bDWm8qc6Wn5/fVnDyr23wLQXV6zle0D4NeQhPjCoJIzBlxHv669x0ejTQD 4LbCrr6u3i39T26qPwLdmBeUPTaGGPPRvpri7+music intern [file] Ng4s/farm management agent+/Sfh7+or5Bw3/o08K7914BB0du48dfMyFJ5emgPSZPRVdsQ7nM99CczosJdh3V6MowSWYWG [file] LPiv4vwrbB8hkj8F5R7s3f/WvKFf+virginie+VyqgKS30Jkg73TqcvtjfXvTORsBYMTSbeTuKonleEAA5qS6 z/p46ddvTyYsgqQpdwlklQWxI1QPOC41z95suqXDcgiG9SXbnbC0xqLNP7K6iVgolr2h9LAnvaH5DsAZ TWoJifQMhLPCYw482CoG9ErGS8TttTMWjd7vHfqdSV relZyjOYhb1IPk1808UlYzs1DwjhR39VI04wux042ToB4daU/j78pv/ipOGgSw/JUAN C+PeRyL+bb7fJ6T [file] 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/oDXDeqIea/QjZ2y+RNiUn3lwvSTkx4F9TEvQrPi [file] oDilMCKWcynW1PcMpCP5tp+Hf098sm89JcG4vVncU6cL/Okdqbp8M2/tQA74XRSoQ/lhf+ORE DRYER/sCW4zVJ [file] indigo vat tender cloth/cavGfeOkcfRt6B0oe24jPDnsNOZpBDOqubR55G/ssJGCQq4YGacWSmcoCCaDJlVN+Ui0heTFJQMM [file] ZO/+KHOFq/h/fQwaAIsGPz7Vx6vl5xxgzcbfut [file] 9mAcYgwpo9rmQWFnbOGopJgD65FeLziI42tAr/S/tetryl screen operator [file] WcukCuFY7/FOTuO+vp home health/JUdsTRCDHUJqQ4ZCN435zpO [file] 4rgjkeBc+H3d5vcxopULKlzmxmXh1jzbglx/EpVhDH gZNOmdRwemD+2KUxjFE6h28nx5RRe4zsQnND7qQr1YnIJLtc3SJ7U7nGhsVCP6RoJ0GuA7ew31GrmwtD UXhKb37nQ0ityriIBGjS5yYafewQAiJVhwVg58NfjxNel0XXd9K9uIiEeJDG27fB54l98+CRw7bL4X/l qdqnKJTRVXLCTuZdBVz6hR4YJRp1u4DIfWNvojERkL zJYd+a6uhWhVPkRjwJYrt2kPAAUwR+vcT0pYVPlEbeRt7AHrNk7E76DPcVtoih1KXsaOSiru5Nrz2q/y YuAi5Y5mqk3RVeQOwFzgxVIMosJs9bs165iOyc178jEm3NCZZcxnbjD5++xuLLDqG+NSK8XwhDVVB6QA 7aCb/+yn7c33ihNxZjuJfyUflp2wCqrV3lOkbVnCJC stretch press operator+UzxAzJPB8pi/B8ykHPr4lPASsmnizvukuvG/4kXMfrgZjGBO7dXaTip6KszDZfrrcHwEI0aJy/Ln3 [file] TyWpXCMtGwobZFYz06M/L0RHxTwyeEAWOiiMvkOOgzj8F1qzgY288+1ksFD5nP5zyVTOqWGWD9Bm/+ORE DRYER [file] SSXGDSAkx+CCEBiCVkA5Zm+qUBFJ0ENCGdjDWlpefv+PURPwHGhrbqoRMfJ4xvMSEK9iUP4YWNPTN9GI PUIhVkMLF7ovWczL1GLB4ml8EyVU1Ic8WrvoR8upWbRIydJPEiItn8QWqrBHEISk== ID Date Data Source [id number] 04/19/2020 01:53:00 PM EDT [facility] Name Value Range Interpretation Code Description Data Rachel rce(s) Supporting Document(s) SARS coronavirus 2 RNA [facility] This lab was ordered by [facility] [place] [facility] and reported by [facility]. ID Date Data Source [id number] 01/20/2020 11:30:00 AM EDT [facility] Name Value Range Interpretation Code Description Data Rachel rce(s) Supporting Document(s) Follow Up [facility] FJMCWf8bJhQYLrVeJVDzOqiFLUydMEpqEHPqQ1C1SDdfHu1IQBvcmiMbJPVcDi6+AFRoLK4gwp0pHOQc gMy [file] vp home health/rfIeB5xbmwg8X32AsSwJUz0SK4qWxafmmg+lOXQ 71/aPh2wG+a1ZlPcE65CERLr5WVtdW/KexZBso1fdE4nRt/eRfwGXhURcl4HR0aLFwZLYLrtBYwiTDbC 62GIFeoMcujmXyUBLgrWma3z0DqQsdQdWPAYJlTZdw//bvq6cILWCw9vI57Lo+6epa/x48Jv1Z8m39No /+id6I8+J5IRzquuWJkrHVMk7jufEOolf4vS4FVrJL mX9dNzGF9FVBGK+8x206bMGrIjF1lLX7/s6yJnZ/S/ambCQHAS6jaMgbWbqwB8UMjeIvSRmEpNHZMPYc oi1HbiHIAcwMzX9fsvK2qFE3WEhchaeGd2wq/lN4lcSCxpsPIw4saP0NGo529Ta2GGNgaeahHpxaKFvs TGCisHm1F25T28+MgN3NcjgD9liOhhlQH//O3xYRDI aSBEMi+md9oHjyiGP8Cpthe81Q37eLKDafqmseu24NAdm4pNnQVgiTO7QTBB4E9uq/AaZwCUQqxFJptl uSEFfi1FSd/JxEd/nS8Del/j8+rrBE0WNwfv3zXkOmlBARh4XNyWenGeqc7c/DwEAjr84wVNllZfC0sH 2+XO9VpITSPhjBIQNCSOBLLAPUVEVhogGi4nTIpzFZ [file] Clif+J/0gCn1chH1NxV9JQrw9or9QAPgtpBs3eTcUIv+ MWdmwXyLV/wbx6RGst6nTHWH9Dq5TISCKsZi5vyIxYsXz6gc/zAvhwAUG+kc7ec5hE0bgzrjc4dX5raW Sg1yajED3ANdmGtZmV8VWM5EGuKvEbMq0MAOq0RPM8gP0cfNBuL3GIrgW/+aHKcnB8rszZfZiM//4wvw hByYQT91FYKIt90CmKVJD4F5vhpbyEQBoWg9EXub1D Rfvdv2OglXS9oUa3EQEmVLy0Xw4xkglibQdVpX7eHJHdn+FF3lQJ4PJYU8wZAczWwiBOAynWo1y9mBEu V+G47ipntvgoX8XPm8OzfKSJbQZRPTxaZ0KvFBoDsaNMSX6031/YetHoEFCsUfW8VkbF3xzRXQxlmIRS AUbfW6ECJ9hnCTSuqeo3aF3fEyT0cSdGPsxf5iTN6T KaV8Y+p/vHFyojp1mJaEOasHJkvHcoYVS4DnSqQ7teknqerOwB4wNGx+Ol6r2CDbU25lvm7iJ3U5cB8+ vI9XSxvgEQlpg/ykFxMkJq3b54atdkgj1ZKUV87qCl6QMfRu8/06MwcRmDTjIJ4nh0vxr3S5gT1cjwwI 39D34gorLSbMCxsFsgCH7m4e3lbbm5AgUx2tHs4BnP nYxI1Rsb6+oWjzp776qtwZ/tgxurBs8gNob7NDQAzJqcphqYOnnp5c3AWVl4KyKzQ79zbn08k+u1ulL1 1WCQquWezL0KxD+h7ZSaxYvM+Xd1YwjMKj9Ds89KN9lpC+z+/XRjww78w/f5p1wKSZuyu+a/hTL5/DIRECTOR MOBILE [file] ly9HetfGUq/2/TTN3YGRHd8MtSkock+aMhEP+T [file] L96Mi1bftJ+giubY3eLtrtHonft7V0Oqt+Juan Carlos/CipyJ4hNioXkbC56mB91aEd32S7a1JrPEpuZ5P6XJ [file] hihGtFH7MVwOGuwqkOEdflAKhzAN84mrlia6xbWZX1/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 operator+ni2nhAXfel8G2x7+hRyH+hveBXJiaOfD9 /W30MZs2n/veDMLWm8rAF5MXjIgwv3pxU8behFRjI1U+ER0KvY52kvkLV7kfL2MX1hvoGPvQhBgLG2Xo PJGhgj3TLgzQs0D6b+v0px8K9Zb4PV8oesNiwRjx9Z YgdLUUqjcnUJ/ehHcyFleTnqLjioegbOdxAQ2XjhK2A1nSUTeEOFdLCW7wxDeWe0fw4E5qeL+zSkzXUj 8EWcWAFUrvSJM8+6WGzici337Y4HlJ3AyY4VwYZkY1Cuz+PLW5A7NfEkBWVJBuXlKmR0AT3g6zyrm2am UrBU3ypmjmyGHv78RU02EEulSdH0RE5FJrNB88fzBX uDSsQIWMryn0oRk+59+3G/GEUk22CJGco8QokdLgN9KdXgEHT2ogKYMtqCe+ir9sWq3lIEgD+FSY+131 9AWdrRcbpNGeM7bWtrNDC+5IVJS0JkP7MW+2ts2TCd1473j88RrYysODnElMIYvc64JX7NCUmAnXjQ7b Y1/ZcMze3DnmFTil6+ct3nkwY0pIOXzBi5cDPSuLj4 ofPpB3aqvhZv35l8Cp1Jita1oau3yf9KraCxlJBoCO6BH0atYKfXxwbyBpEpfMxkzdQZSKeFAlg1VTi1 2ixLABW9nx1oaOkOsOAxtO89sJUFWPlR8NJVSRNMDY4Mc4NujPKv4+feGxLyabMgYqrduawwZtW6R8X0 rL9tcIjw/6TMmagDxmTvnd/T++NzfkAlb4kMuaQaas tN3V4IFQchocxBt77KBPm9WkSs2ZhGpYdQWzCreDDDUHK0d8ep3Ch9wcHZnt0N6i9ZZCHweVsr13RAyG H9W+prl8fh6tOIDpZjhCaxMTFYRx+y5djPpVhaeNK9M3LGpCv3TlxDMsl2R6WAIVEKLdeba0IGauAx1g H/CRISTOBAL/ZoJPPvObXSrpK4vdFcbp47POsXRrlBnC76OJC [file] ORE DRYER+TnlYdvdFRDk3taPAUxL9FMTuW5iqJ5NeFXEvnxvgow/+jrlVU9tiApcezeJ6eZEbmUU4gDGCcNVtt jyiaxAvvTi5vMhxj1yhETbOQT2AcThVb/EK+H1/ryq 3QhY70DZkb0bx9SW47lhD5mPBHRIODh+ZOQ9Kqkf1EOflXKagoWkUvUG/TFpLcAl68/TPMnXwKjBvsps wS7dOlLucnaF9b3ZXEaBDGXQr9E+R8xKh/cPHeieXRNAibokJQuvrg6fR54Bo1HicQIi1jxStG5CyS7H F8Nwnr9CpERj8lRxzZ3ubhZaB5T0F5r+NBUnKN7kDi GVEIEJBWjAi7SCqf4BabQsuBT+lSnwrtL6jClOxEtOGv9sXXy0FQGeXNW1bsyuE7Zs4kBDAcjMocBGPW nCwdG6lH6WIf/0dhDjFUlPfw0OrqF7cyoWrgU73UCVD3Gx1bbYJLo8cLVTS3yIgou3bwrw6pu+dpr6kl 211QjyitLQ8PC147hUFRxegNMq8+i9LMVKuA4MxyWU zToWkCG01AiM19mb45v+Michael+gV+Auu4b/df5DZ5ag/dYpugLxLw+MfInmIt1IFg3j/5zefUmv98bVXxi +MnSsnTbuVoadASgDGORFv33AKU0owyIyznS5hxqmuxaapL6h9JpGW0HgSRuteFFoNTmYq4auiJlinmN YQM6NM6Xk8EHHMjT6j3v34c+kGTS7SHF8M7aPJHDuw TMWYZILjGoBLLTy/B3uR+1H+Tv5VmhxLRWlLcWqy+ZH8Pe9QvWE0DYadUIyVMRn5JYw6OAFQRSrPffg7 lTnRWyjoEB7lOoCvCrUQaO6xjOHc6Tq4NHoXxX4aZwbOC/K56DJLrdwC6jaXQ6EPxGpI0i9Fe3s6t/wP oGjrKr7aSfIsUwVlpFcJ6XpghvjibqP+id62QtCnau 36nywQ+8BUS9LJ7ym0TX2UvRw8us3kJ5CV/B9yvLkQx9hXc9FGxKSJOJmKdHvxgf5TOpoHFRf2QMSqrO oamkIM7Ph6Y7Mwwc8f/hcUOrxhzaXiC1xa6OtUSTKkenCT8NBjSylkPzzpmea0/LeqlR49JJexYSNEcH FA7ta/uYBCORcf+DHHKEBjhB/vhI/zONJU19ZSOHqQ [file] IffcWGCaUeYW9Q6fHmwZ30CGuhxSntTmHiR+lAy27wydXtihbnm2RbAayOcko2HfM4zUbt3J4IMt/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 [file] dDeYRugVSDWTUomm2sBUIsLHEm58yzooOGNyBs6cO7vLgxlaOK8eFB43I/HLxrUKl1CfzCV19OQV7/Freight Rate Analyst [file] hNj9rlVIdApG4dm5ndzV72dZSZushTsHGsIt4H/tetryl screen operator/QSnMlxWPa1gVtBCjJZ55zIZ1F1XO+GgrCnKknq [file] 2b32tieDhwQNSdR5dJpXfW52a3WNtMMdwYkED0517hJwI20wbMrKjIICGZ858jg6pndnkkv0qZlev+ORE DRYER halfway+4Cww4HX0B7PnA/u8H7MDfnGeqmww+2fsJmgGXe5UWL/rNeF7IIkciwMz+O21dJ9bp8uN6DUOjzz+ [file] home health [file] Cn1nyGXsAc+IAqJxCztL1CMzNjaT6W17NykGdfW3/hAIS9g6vTKsbNjXvoenYNu7g+Ry2DUj/4AaI+Crap Game Box Person [file] If7hQ8283c+yz9Jjuj5Hx44b/QQm8URZ5Z764W1VAE td4yw3/rkXRy95P2/bh96JSSAqiqCsT7j68hbZ/XvcIe3vg9Js/qezH0v/XiiN3nLDtkne/QCY+udq4R VveneedrSwdeEjWfphlJcyyAi0Hm3Ka0UjkR4VeR5Rx7hD2wDaY6c1E72xc6MY+gmtQc+Jpwc/gP2MZ6 3gymFBsqDKUGujQ+j4SSjEae42DTCm+06DRSvGW1T2 jfqN8TUqgNgkSrBR1j0tLW2a4uU7veWzGkTz61/1rBToVgY91CPYnfz4kCHpqrMT7Y2HIOB+HCYmlZtb dUoda8CK2UMhT4imxn727jKJKKytwpxdD3c9exTO/eGv44JM8RlpUnu3WziJrDbBo4v1WuQE4rc4JUSo +3yqRydD7BqEH9IU3udj6+oPe5xb+EP1Km4SaFQY7J aa9xNZM1ZI0BNShF7E1PwQ+GKCFSboLeu52phrsBpJmg9RWh6DLGGUA/dxwsya4tIiTE15tVO/hL6LD/ t83t/Vh8TiuLbGn3CAXg7++iWnXAkKPyslD+OUfdGkVv73fhYkgtKj7MS+klDbVGhGQZczw7eWIid01v VMEiCxUKhYbCiX+BRmeP7nBYv9uPqYlLNpI5RLLvvU soiUEv6+8kmPUvIncDYDejLwK0BltWO5ogzDNs9oFvKhAglwar59UmbkPMNx3Mp4Zkf9vuF8rckPyOvC Q/ijbHcmseakCQBYWYuSywMGqSFSnG1oIuw2mYWsvFXMTpUIZpCHqBkaEs/gijRvbgE7DSQd3j1bEe0U 0lqpCeRF6RwtyaMbanuxR6K103wUMMmN72MIcC3wLQ H6hKYG8nKBf2sdY4bj1H2NBiTk6SfeoT2gv4BrW0oBBrGgQwl1JVrcGIBGdC04FB4zcnXyVsffVyNYDq g8+gVfWEEssCFdJ2HqLFBYkqvtWNkmB1PikJjjzM2hwqkiv3NS1WzDl+Kd//yWyOHIkVCIV2zxBq0C/P e58oSRz47scPMoTRdhy4eePqkt/Juan Miguel/0Bc0up16Ac6 [file] /5CD2aAruBrJvQAPKav2KVCYRwnaFqA2v4Q/I3M4jsa7WHE1oAuYD+9ZTbHTeXM4cMNLZeK8XGE54/Crap Game Box Person [file] uUHHc+iahxSGn7pNHEhyfJXrdY6A8VScwaHrLe [file] VEuDoQ4Bprj4L/tafVzNdYN+4l5kw7J5G+8OMOhE+dza9C/dFYJLUWJSn0+dental services director+jy6u8pZH6mDx7TZYD 4YdUGSN6kTTcoSYua9fhmSMjmd2vpW8ELaSeqaafHjZmC9StFWK+m+sPR6WU+DQWLrmA9rXMst33Ylp/ wi/VAgPXZLQsemBdL+iksBQYno5YCH0zVros1+znsi vxm59y51RweWKbZDf3Q5ex1mAS/JoRh9xm9mK9yrjjBE5gJ/bkRaz5RVuuxg339WXCQrxYSeJffCalc9 UXzB4n4u/46zs+snxmHPrDtCv4hsl2dW19jum1egFo51c975GiCOQst8mkUX04/RObGl2lBHRCQaSre2 yBWpjqyyBBmn57mGEl8FFgNI0LFr16w/vO5sTQMoDv Ck71qiIJHIBh6Jo2rAEf89HVhQplWBMWDz7b6ctMK9RT3Wa1Es89ND9t8pfQq7Ob/Dcfhn++RAdEbMB+ aTYjsuBgXpC0Om+Frc+TVp+R0S7/beJLVfv0R+B/sravan+sZk3tuU5qN+7uelTVWtAvPKurdTtXxXDr3iD [file] UlRU9G ID Date Data Source [id number] 10/10/2019 12:00:00 AM EDT [facility] Imaging Jenelle Boyd [place] Patient Name: MOLLYLEXX [id number] [facility] Date of : 1970[place] [address] Date of Exam: 10/10/2019#: Fax: [phone] EXAM: [...] mammogram was read with the assistance of [employer], an FDAapproved computer aided detection system for [...] rce(s) Supporting Document(s) ID Date Data Source [id number] 06/30/2019 08:08:00 AM EST [facility] Patient Name: GREG Garcia : 1970 Sex: F Pt Unit #: [id number] Location:AMB.DERM Provider: Visit Date/Time: 06/30/19 Primary Insurance: [...] 1 GM PO BID Patient : No PFS - Derm Medical History (Updated 06/30/19 @ 08:40 by Pearl Pretty NP) GERD (gastroesophageal reflux disease) PAC (premature atrial contraction) PVCs (premature ventricular contractions) Tachycardia Surgical History (Updated 01/07/19 @ 11:53 by [employer]Up MA) History of - surgery History of - [...] Shaves daily. Symptomatic today. patient noted that [employer] HARVESTER has tested for hormone level and for [...] Code(s): L71.9 - Rosacea, unspecified SNOMED Code(s): 355347761 Category: Medical Plan - Pearl Pretty NP: Discussed diagnose and treatment options. Start Metrogel daily. Discussed laser treatment and OTC brimonidine for telangiectasias. Call with problems. Medications: New: metronidazole 1% apply to face daily 1 applic topical QDAY 60 grams 2RF (2) Folliculitis: Current Visit: Yes Status: Acute Code(s): L73.9 - Follicular disorder, unspecified SNOMED Code(s): 24086829 Category: Medical Medications: New: clindamycin-benzoyl peroxide 1.2 %(1 % base) -5 % apply to face daily. 1 applic topical QDAY 45 grams 1RF (3) Hirsutism: Current Visit: Yes Status: Acute Code(s): L68.0 - Hirsutism SNOMED Code(s): 326676854 Category: Medical Plan - Pearl Pretty NP: [...] [Ratio] 32.0 kg/m2 32.0 k g/m2 [facility] ([facility], [facility]) Body height 61.5 [in_i] 61.5 [in_i] [facility] ([facility], [facility]) 5'1.50" Body weight 172.00 [lb_av] 172.00 [lb_av] [facility] T ([facility], [facility]) Body temperature 98.2 [degF] 98.2 [degF] [facility], [facility]) Oxygen saturation in Arterial blood by Pulse oximetry 97 % 97 % [facility] ([facility], [facility]) Respiratory rate 12 /min 12 /min [facility] ( [facility], [facility]) Heart rate 76 /min 76 /min [facility] ([facility], [facility]) Diastolic blood pressure 76 mm[Hg] 76 mm[Hg] [facility]) Systolic blood pressure 111 mm[Hg] 111 mm[Hg] M EDENT ([facility], [facility]) Oxygen saturation in Arterial blood by Pulse oximetry 97 % 97 % [facility] ([facility] Body mass index (BMI) [Ratio] 30.6 kg/m2 30.6 k g/m2 [facility] ([facility] [place] body weight 120 [lb_av] 120 [lb_av] [facility] T ([facility] Body weight 178.00 [lb_av] 178.00 [lb_av] [facility] T ([facility] Body height 64 [in_i] 64 [in_i] [facility] ([facility] 5'4" Respiratory rate 16 [...] k g/m2 [facility] ([facility] [place] body weight 120 [lb_av] 120 [lb_av] [facility] T ([facility] Body weight 172.00 [lb_av] 172.00 [lb_av] [facility] T ([facility] Body height 64 [in_i] 64 [in_i] [facility] ([facility] 5'4" Respiratory rate 16 [...] [Ratio] 29.3 kg/m2 29.3 k g/m2 [facility] ([facility] Body weight 171.00 [lb_av] 171.00 [lb_av] [facility] T ([facility] Body height 64 [in_i] 64 [in_i] [facility] ([facility] 5'4" Respiratory rate 16 /min 16 /min [facility] ( [facility] Heart rate 72 /min 72 /min [facility] ([facility] Body temperature 99.3 [degF] 99.3 [degF] [facility] ([facility] Diastolic blood pressure 72 mm[Hg] 72 mm[Hg] [facility] ([facility] Systolic blood pressure 102 mm[Hg] 102 mm[Hg] M EDENT ([facility] Body surface area 1.80 m2 1.80 m2 [facility] ([employer]) Body mass index (BMI) [Ratio] 29.8 kg/m2 29.8 k g/m2 [facility] ([employer]) Body weight 168.00 [lb_av] 168.00 [lb_av] [facility] T ([employer] [facility] [employer]) Body height 63 [in_i] 63 [in_i] [facility] ([employer]) 5'3" Diastolic blood pressure 74 mm[Hg] 74 mm[Hg] [facility] ([employer]) Systolic blood pressure 132 mm[Hg] 132 mm[Hg] M EDENT ([employer])
[2020-08-13 14:19] LABS: BASO % 0.4 % (0.0-1.0); EOS # 0.1 10^3/uL (0.0-0.5); EOS % 1.8 % (0.0-3.0); HEMATOCRIT 38.5 % (36.0-47.0); HEMOGLOBIN 12.8 g/dl (12.0-15.5); LYMPH # 1.1 10^3/uL (1.5-5.0); LYMPH % 23.5 % (24.0-44.0); MEAN CORPUSCULAR HEMOGLOBIN 29.8 pg (27.0-33.0); MEAN CORPUSCULAR HGB CONC 33.2 g/dl (32.0-36.5); MEAN CORPUSCULAR VOLUME 89.7 fl (80.0-96.0); MONO # 0.6 10^3/uL (0.0-0.8); MONO % 12.3 % (0.0-5.0); NEUTROPHILS # 2.8 10^3/uL (1.5-8.5); NEUTROPHILS % 61.6 % (36.0-66.0); PLATELET COUNT, AUTOMATED 185 10^3/uL (150-450); RED BLOOD COUNT 4.29 10^6/uL (4.00-5.40); WHITE BLOOD COUNT 4.6 10^3/uL (4.0-10.0)
[2020-08-13 14:56] LABS: ALBUMIN 3.1 GM/DL (3.2-5.2); ALT/SGPT 23 U/L (12-78); BILIRUBIN,TOTAL 0.4 MG/DL (0.2-1.0); BLOOD UREA NITROGEN 10 MG/DL (7-18); C REACTIVE PROTEIN QUANTITATIV 3.23 MG/DL (0.00-0.30); CALCIUM LEVEL 8.5 MG/DL (8.5-10.1); CARBON DIOXIDE LEVEL 29 MEQ/L (21-32); CHLORIDE LEVEL 103 MEQ/L (98-107); CREATININE FOR GFR 0.82 MG/DL (0.55-1.30); FERRITIN 207 NG/ML (8-252); GLOMERULAR FILTRATION RATE > 60.0 (>51); GLUCOSE, FASTING 118 MG/DL (70-100); LDH LACTATE DEHYDROGENASE 365 U/L (84-246); POTASSIUM SERUM 4.2 MEQ/L (3.5-5.1); SODIUM LEVEL 138 MEQ/L (136-145); TOTAL PROTEIN 7.5 GM/DL (6.4-8.2); TROPONIN I < 0.02 NG/ML (< 0.10)
--- NOTE | 2020-08-13 14:59 | REP ---
INDICATION: Coronavirus workup. COMPARISON: Comparison chest x-ray October 26, 2015. TECHNIQUE: Portable upright AP chest radiograph. FINDINGS: There are hazy right upper lobe and right base infiltrates peripherally. These represent a change from the prior study. The left lung is clear. Pleural angles are sharp. Monitoring electrodes are seen. The heart is not enlarged. No bony abnormality is seen. IMPRESSION: Hazy infiltrates on the right.. <Electronically signed by Navin Solorio > 08/13/20 [id number]
[2020-08-13 15:30] VITALS: BP 114/81
[2020-08-13] MEDS ORDERED: ONDA4TAB6 PO (15:47)
== END 2020-08-13 16:18 | disposition home or self-care (01) ==
LOC: M ED 12:10
DX: U07.1 COVID-19 (principal); I10 Essential (primary) hypertension; K21.9 Gastro-esophageal reflux disease without esophagitis; K58.9 Irritable bowel syndrome, unspecified; J30.89 Other allergic rhinitis; Z87.891 Personal history of nicotine dependence; Z79.899 Other long term (current) drug therapy; Z88.2 Allergy status to sulfonamides

== ENCOUNTER → 2021-03-28 | Outpatient (CLI) | payer BC ==
[~2021-03-28] MED LIST changes: +ALBU8.5H; +AMOX875T; +ONDA4TAB6 PO
[2021-03-28 17:21] LABS: APPEARANCE, URINE CLEAR (CLEAR); BACTERIA, URINE AUTO 1+ (NEGATIVE); BILIRUBIN, URINE AUTO NEGATIVE (NEGATIVE); BLOOD, URINE BLOOD 1+ (NEGATIVE); COLOR, URINE YELLOW (YELLOW); GLUCOSE, URINE (UA) AUTO NEGATIVE (NEGATIVE); KETONE, URINE AUTO NEGATIVE (NEGATIVE); LEUKOCYTE ESTERASE, URINE AUTO NEGATIVE (NEGATIVE); MUCUS, URINE SMALL (NEGATIVE); NITRITE, URINE AUTO NEGATIVE (NEGATIVE); PROTEIN, URINE AUTO NEGATIVE (NEGATIVE); RBC, URINE AUTO 1 /HPF (0-3); SPECIFIC GRAVITY URINE AUTO 1.013 (1.002-1.035); SQUAMOUS EPITHELIAL CELL UR AU 1 /HPF (0-6); UROBILINOGEN, URINE AUTO 0.2 mg/dL (0.0-2.0); WBC, URINE AUTO 1 /HPF (0-3)
[2021-03-28 17:45] LABS: ALBUMIN 3.4 GM/DL (3.2-5.2); ALT/SGPT 23 U/L (12-78); BILIRUBIN,TOTAL 0.4 MG/DL (0.2-1.0); BLOOD UREA NITROGEN 12 MG/DL (7-18); CALCIUM LEVEL 9.2 MG/DL (8.5-10.1); CARBON DIOXIDE LEVEL 28 MEQ/L (21-32); CHLORIDE LEVEL 107 MEQ/L (98-107); CREATININE FOR GFR 0.86 MG/DL (0.55-1.30); GLOMERULAR FILTRATION RATE > 60.0 (>51); GLUCOSE, FASTING 93 MG/DL (70-100); LDH LACTATE DEHYDROGENASE 193 U/L (84-246); POTASSIUM SERUM 4.2 MEQ/L (3.5-5.1); SODIUM LEVEL 139 MEQ/L (136-145); TOTAL PROTEIN 7.1 GM/DL (6.4-8.2)
== END ==
LOC: M LABDRWAD 15:16
PROVIDERS: ATTEND Physician Assistant
DX: R79.9 Abnormal finding of blood chemistry, unspecified (principal); R00.2 Palpitations; Z86.16 Personal history of COVID-19

== ENCOUNTER 2022-03-10 07:15 | Emergency (ER) | payer BC ==
[~2022-03-10] VITALS: Ht 157.5 cm; Wt 78.2 kg
[2022-03-10] MEDS ORDERED: OZEM2INJ SQ (07:31)
[2022-03-10] MEDS ORDERED: KETOROLAC 30 MG/ML 1ML VIAL IM ONE (10:05)
[2022-03-10] MEDS ORDERED: KETO10TAB PO (10:36)
[2022-03-10 10:56] VITALS: BP 113/60
== END 2022-03-10 11:00 | disposition home or self-care (01) ==
LOC: M ED 07:15
DX: S39.012A Strain of muscle, fascia and tendon of lower back, initial encounter (principal); M51.37 Other intervertebral disc degeneration, lumbosacral region; M47.817 Spondylosis without myelopathy or radiculopathy, lumbosacral region; Y92.9 Unspecified place or not applicable; J30.9 Allergic rhinitis, unspecified; Z79.899 Other long term (current) drug therapy; Z88.2 Allergy status to sulfonamides
CPT/HCPCS: 96372; 99283; J1885

== ENCOUNTER 2022-08-30 06:57 | Emergency (ER) | payer BC ==
[~2022-08-30] VITALS: Ht 157.5 cm; Wt 77.1 kg
[~2022-08-30 06:57] MED LIST changes: +OZEM2INJ SQ
[2022-08-30] MEDS ORDERED: DOXY-443 PO (08:46)
[2022-08-30 08:58] VITALS: BP 132/71
== END 2022-08-30 09:00 | disposition home or self-care (01) ==
LOC: M ED 06:57
DX: L73.9 Follicular disorder, unspecified (principal); J30.89 Other allergic rhinitis; Z79.899 Other long term (current) drug therapy; Z88.2 Allergy status to sulfonamides

== ENCOUNTER → 2022-10-11 | Outpatient (REF) | payer BC ==
[~2022-10-11] MED LIST changes: +DOXY-443 PO
== END ==
LOC: M SFHCWAGY 17:35
PROVIDERS: ATTEND Nurse Practitioner Family
DX: Z12.4 Encounter for screening for malignant neoplasm of cervix (principal)
CPT/HCPCS: 87624; G0123

== ENCOUNTER → 2022-12-24 | Outpatient (REF) | payer BC | LOC: M LAB REF 10:07 | PROVIDERS: ATTEND Physician Assistant Medical | DX: B34.9 Viral infection, unspecified (principal) ==

== ENCOUNTER 2023-09-30 08:41 | Emergency (ER) | payer OTHER, MEDICAID ==
[~2023-09-30] VITALS: Ht 157.5 cm; Wt 75.6 kg
[2023-09-30 08:41] VITALS: BP 124/75; TEMP 96.8; O2SAT 99
== END 2023-09-30 09:29 | disposition left against medical advice (07) ==
LOC: M ED 08:41
DX: Z53.21 Procedure and treatment not carried out due to patient leaving prior to being seen by health care provider (principal)

== ENCOUNTER → 2023-10-15 | Outpatient (REF) | payer OTHER, MEDICAID | LOC: M SFHCWAGY 10:28 | PROVIDERS: ATTEND Nurse Practitioner Family | DX: Z12.72 Encounter for screening for malignant neoplasm of vagina (principal); Z11.51 Encounter for screening for human papillomavirus (HPV) ==

== ENCOUNTER 2024-05-22 02:02 | Emergency (ER) | payer BC, MEDICAID, OTHER, SELFPAY ==
[~2024-05-22] VITALS: Ht 157.5 cm; Wt 73.2 kg
[~2024-05-22 02:02] MED LIST changes: +DOXY-441 PO; -DOXY-443 PO; +ONDA-282 PO; -ONDA4TAB6 PO
[2024-05-22 02:57] LABS: BASO % 0.3 % (0.0-1.0); EOS % 0.4 % (0.0-3.0); HEMATOCRIT 39.5 % (36.0-47.0); HEMOGLOBIN 13.8 g/dl (12.0-15.5); LYMPH # 0.7 10^3/uL (1.5-5.0); LYMPH % 10.1 % (24.0-44.0); MEAN CORPUSCULAR HEMOGLOBIN 30.3 pg (27.0-33.0); MEAN CORPUSCULAR HGB CONC 34.9 g/dl (32.0-36.5); MEAN CORPUSCULAR VOLUME 86.6 fl (80.0-96.0); MONO # 0.2 10^3/uL (0.0-0.8); MONO % 2.4 % (2.0-8.0); NEUTROPHILS # 6.2 10^3/uL (1.5-8.5); NEUTROPHILS % 86.4 % (36.0-66.0); PLATELET COUNT, AUTOMATED 268 10^3/uL (150-450); RED BLOOD COUNT 4.56 10^6/uL (4.00-5.40); WHITE BLOOD COUNT 7.1 10^3/uL (4.0-10.0)
[2024-05-22 03:31] LABS: LIPASE 28 U/L (12-53)
[2024-05-22 03:34] LABS: ALBUMIN 3.8 G/DL (3.2-5.2); ALKALINE PHOSPHATASE 80 U/L (35-104); ALT/SGPT 20 U/L (7.0-40); AST/SGOT 21 U/L (<34); BILIRUBIN,DIRECT 0.2 MG/DL (<0.4); BILIRUBIN,TOTAL 0.7 MG/DL (0.3-1.2); BLOOD UREA NITROGEN 13 MG/DL (9-23); CALCIUM LEVEL 9.6 MG/DL (8.5-10.1); CARBON DIOXIDE LEVEL 22 MMOL/L (20-31); CHLORIDE LEVEL 104 MMOL/L (98-107); CK-MB VALUE MASS < 1.0 NG/ML (<3.6); CREATININE FOR GFR 0.77 MG/DL (0.55-1.30); GLOMERULAR FILTRATION RATE > 60.0 (>51); GLUCOSE, FASTING 142 MG/DL (60-100); POTASSIUM SERUM 3.9 MMOL/L (3.5-5.1); SODIUM LEVEL 136 MMOL/L (136-145); TOTAL PROTEIN 7.7 G/DL (5.7-8.2)
[2024-05-22 03:53] LABS: CPK CREATINE PHOSPHOKINASE 237 U/L (34-145); MB/CK RELATIVE INDEX 0.42 (< OR =4)
[2024-05-22] MEDS: KETOROLAC 30 MG/ML 1ML VIAL IV ONE (04:15)
[2024-05-22] MEDS: ONDANSETRON 4MG 2ML VIAL IV ONE (04:15)
[2024-05-22] MEDS ORDERED: ISOVUE-370 76% 100ML VIAL As Ordered ONE (05:11)
[2024-05-22] MEDS ORDERED: KETO10TAB PO (07:07)
[2024-05-22 07:16] VITALS: BP 109/73; TEMP 97.9; O2SAT 99
== END 2024-05-22 08:03 | disposition home or self-care (01) ==
LOC: EDBD 02:02 → M ED 02:02
DX: K52.9 Noninfective gastroenteritis and colitis, unspecified (principal); K80.20 Calculus of gallbladder without cholecystitis without obstruction; I10 Essential (primary) hypertension; F41.9 Anxiety disorder, unspecified; J30.89 Other allergic rhinitis; Z79.899 Other long term (current) drug therapy; Z88.2 Allergy status to sulfonamides
CPT/HCPCS: 74177; 80048; 80076; 82550; 82553; 83690; 84484; 85025; 93005; 96374; 96375; 99285; J1885; J2405; Q9967

== ENCOUNTER → 2024-05-27 | Outpatient (REF) | payer BC | LOC: M LAB REF 11:04 | PROVIDERS: ATTEND Emergency Medicine | DX: R19.7 Diarrhea, unspecified (principal) ==

== ENCOUNTER → 2024-06-18 | Outpatient (CLI) | payer BC ==
[2024-06-18 09:34] LABS: HEMATOCRIT 40.9 % (36.0-47.0); HEMOGLOBIN 13.6 g/dl (12.0-15.5); MEAN CORPUSCULAR HEMOGLOBIN 30.4 pg (27.0-33.0); MEAN CORPUSCULAR HGB CONC 33.3 g/dl (32.0-36.5); MEAN CORPUSCULAR VOLUME 91.3 fl (80.0-96.0); PLATELET COUNT, AUTOMATED 244 10^3/uL (150-450); RED BLOOD COUNT 4.48 10^6/uL (4.00-5.40); WHITE BLOOD COUNT 6.5 10^3/uL (4.0-10.0)
[2024-06-18 10:14] LABS: ALBUMIN 3.7 G/DL (3.2-5.2); BILIRUBIN,DIRECT 0.3 MG/DL (<0.4); BILIRUBIN,TOTAL 0.9 MG/DL (0.3-1.2); TOTAL PROTEIN 7.7 G/DL (5.7-8.2)
== END ==
LOC: M RAD 07:46
PROVIDERS: ATTEND Nurse Practitioner Family
DX: K80.20 Calculus of gallbladder without cholecystitis without obstruction (principal); R10.13 Epigastric pain

== ENCOUNTER 2024-07-07 15:55 | Emergency (ER) | payer BC ==
[~2024-07-07] VITALS: Ht 157.5 cm; Wt 71.8 kg
[2024-07-07] MEDS ORDERED: AUGM0.0534 (16:06)
[2024-07-07] MEDS ORDERED: FAMO20TA PO (16:06)
[2024-07-07] MEDS ORDERED: HYDR-3713 PO ×2 (16:06→19:03)
[2024-07-07 17:01] LABS: BASO # 0.1 10^3/uL (0.0-0.2); BASO % 0.6 % (0.0-1.0); EOS # 0.1 10^3/uL (0.0-0.5); EOS % 1.3 % (0.0-3.0); HEMATOCRIT 38.5 % (36.0-47.0); HEMOGLOBIN 13.1 g/dl (12.0-15.5); LYMPH # 1.8 10^3/uL (1.5-5.0); LYMPH % 23.2 % (24.0-44.0); MEAN CORPUSCULAR HEMOGLOBIN 30.2 pg (27.0-33.0); MEAN CORPUSCULAR VOLUME 88.7 fl (80.0-96.0); MONO # 0.4 10^3/uL (0.0-0.8); MONO % 4.9 % (2.0-8.0); NEUTROPHILS # 5.4 10^3/uL (1.5-8.5); NEUTROPHILS % 69.7 % (36.0-66.0); PLATELET COUNT, AUTOMATED 284 10^3/uL (150-450); RED BLOOD COUNT 4.34 10^6/uL (4.00-5.40); WHITE BLOOD COUNT 7.7 10^3/uL (4.0-10.0)
[2024-07-07 17:17] LABS: LIPASE 27 U/L (12-53)
[2024-07-07 17:19] LABS: ALBUMIN 3.8 G/DL (3.2-5.2); ALKALINE PHOSPHATASE 88 U/L (35-104); ALT/SGPT 24 U/L (7.0-40); AST/SGOT 32 U/L (<34); BILIRUBIN,DIRECT 0.2 MG/DL (<0.4); BILIRUBIN,TOTAL 0.5 MG/DL (0.3-1.2); BLOOD UREA NITROGEN 12 MG/DL (9-23); CARBON DIOXIDE LEVEL 27 MMOL/L (20-31); CHLORIDE LEVEL 105 MMOL/L (98-107); CREATININE FOR GFR 0.82 MG/DL (0.55-1.30); GLOMERULAR FILTRATION RATE > 60.0 (>51); GLUCOSE, FASTING 119 MG/DL (60-100); POTASSIUM SERUM 4.1 MMOL/L (3.5-5.1); SODIUM LEVEL 141 MMOL/L (136-145); TOTAL PROTEIN 7.6 G/DL (5.7-8.2)
[2024-07-07] MEDS: NS (Normal Saline) 0.9% 1,000 ML IV ONE (17:23)
[2024-07-07] MEDS: ONDANSETRON 4MG 2ML VIAL IV ONE (17:23)
[2024-07-07] MEDS ORDERED: ONDA-282 PO (19:03)
[2024-07-07 19:15] VITALS: BP 119/76; TEMP 96.3; O2SAT 98
== END 2024-07-07 19:16 | disposition home or self-care (01) ==
LOC: M ED 15:55
DX: K80.50 Calculus of bile duct without cholangitis or cholecystitis without obstruction (principal); K21.9 Gastro-esophageal reflux disease without esophagitis; J30.89 Other allergic rhinitis; Z79.899 Other long term (current) drug therapy; Z88.2 Allergy status to sulfonamides
CPT/HCPCS: 76705; 80048; 80076; 83690; 85025; 96361; 96374; 99284; J2405

== ENCOUNTER 2024-07-24 07:37 | Day surgery (SDC) | payer BC ==
[~2024-07-24] VITALS: Ht 157.5 cm; Wt 74.1 kg
[~2024-07-24 07:37] MED LIST changes: -ALPR0.25; +ALPR0.25 PO; +AUGM0.0534; -BISO5TAB14; +BISO5TAB14 PO; +FAMO20TA PO; +GLYCOPYRROLATE INJ 0.2 MG/ML 2 ML VIAL As Ordered ONE; +HYDR-3713 PO; +KETOROLAC 60MG 2ML VIAL As Ordered ONE; +LIDOCAINE 2% 100MG/5ML SDV (FOR ANES.) As Ordered ONE; +MIDAZOLAM INJ 2MG/2ML VIAL As Ordered ONE; +ONDANSETRON 4MG 2ML VIAL As Ordered ONE; +ROCURONIUM BROMIDE 50MG/5ML VIAL As Ordered ONE; +SUGAMMADEX SODIUM 500 MG/5 ML VIAL (BRIDION) As Ordered ONE; +fentaNYL 100 MCG/2 ML INJECTION As Ordered ONE; +propofoL 200 MG/20 ML VIAL As Ordered ONE
[2024-07-24] MEDS ORDERED: LR 1,000 ML IV SCH (07:50)
[2024-07-24] MEDS: oxyCODONE 5MG TAB PO PRN (11:23)
[2024-07-24] MEDS: ONDANSETRON 4MG 2ML VIAL IV PRN (11:25)
[2024-07-24] MEDS: fentaNYL 100 MCG/2 ML INJECTION IV PRN (11:48)
[2024-07-24 12:48] VITALS: BP 129/73; TEMP 97.1; O2SAT 100
== END 2024-07-24 13:05 | disposition home or self-care (01) ==
LOC: M SDC 07:37
PROVIDERS: ATTEND Surgery
DX: K81.9 Cholecystitis, unspecified (principal); I10 Essential (primary) hypertension; K44.9 Diaphragmatic hernia without obstruction or gangrene; K21.9 Gastro-esophageal reflux disease without esophagitis; G43.909 Migraine, unspecified, not intractable, without status migrainosus; Z79.51 Long term (current) use of inhaled steroids; Z79.899 Other long term (current) drug therapy; F41.9 Anxiety disorder, unspecified; J45.909 Unspecified asthma, uncomplicated; K58.8 Other irritable bowel syndrome
CPT/HCPCS: 47562; 88304; J0665; J1100; J1596; J1885; J2250; J2405; J3010; S2900